=== PATIENT | male | born 1960 | race Caucasian/White ===

== ENCOUNTER 2018-06-13 05:22 | Emergency (ER) | payer BC, OTHER ==
[~2018-06-13] VITALS: Ht 170.2 cm; Wt 86.2 kg
--- NOTE | 2018-06-13 05:52 | ED Lower Extremity ---
General Chief Complaint: Lower Extremity Stated Complaint: BOTH LEGS SWOLLEN, RT IS MORE. Nursing Triage Note: Pt c/o swelling in lower extremites starting yesterday. Nursing Sepsis Screen: No Definite Risk (KATLYN NDIAYE DO) History of Present Illness Date Seen by Provider: Jun 13, 2018 Time Seen by Provider: 05:38 This is a 58-year-old man who complains of gradual development of symmetrical lower extremity edema over the last several days. He had the same thing about 10 years ago he states and he got better after taking a dose of Lasix. He has had no chest pain or difficulty breathing. No lightheadedness. He used to drink more frequently and has cut down to only drinking on weekends. He takes lorazepam for anxiety and "stomach pills" but is unsure of the names of these medications. (KATLYN NDIAYE DO) Allergies and Home Medications Patient Home Medication List Home Medication List Reviewed: Yes (KATLYN NDIAYE DO) Review of Systems Constitutional: no symptoms reported EENTM: no symptoms reported Respiratory: no symptoms reported Cardiovascular: No chest pain; edema; No palpitations Gastrointestinal: no symptoms reported Genitourinary: no symptoms reported Musculoskeletal: no symptoms reported Skin: no symptoms reported Psychiatric/Neurological: No Symptoms Reported (KATLYN NDIAYE DO) Past Jnevopk-Qlrvto-Gibuny Hx Patient Social History Recent Foreign Travel: No Contact w/Someone Who Travel: No Recent Infectious Disease Expo: No (KATLYN NDIAYE DO) Physical Exam Vital Signs Vital Signs - First Documented 06/13/18 05:30 Temp 97.8 Pulse 84 Resp 18 B/P (MAP) 155/94 (114) Pulse Ox 97 O2 Delivery Room Air (JACI KANG MD) Vital Signs Capillary Refill : Less Than 3 Seconds (KATLYN NDIAYE DO) Height, Weight, BMI Height: 5'7.00" Weight: 190lbs. oz. 86.462855yu; BMI Method:Stated General Appearance: no apparent distress HEENT: normal ENT inspection Neck: supple Cardiovascular: normal peripheral pulses, regular rate, rhythm; No JVD; other ( moderate symmetrical lower extremity pitting edema) Respiratory: lungs clear Gastrointestinal: non tender, soft, other (protuberant) Neurologic/Tendon: normal sensation, normal motor functions Neurologic/Psychiatric: alert, normal mood/affect Skin: warm/dry (KATLYN NDIAYE DO) Progress/Results/Core Measures Results/Orders Lab Results Laboratory Tests Test 06/13/18 05:50 Range/Units White Blood Count 3.6 L 4.3-11.0 10^3/uL Red Blood Count 3.93 L 4.35-5.85 10^6/uL Hemoglobin 10.4 L 13.3-17.7 G/DL Hematocrit 33 L 40-54 % Mean Corpuscular Volume 84 80-99 FL Mean Corpuscular Hemoglobin 26 25-34 PG Mean Corpuscular Hemoglobin Concent 27 L 32-36 G/DL Red Cell Distribution Width 16.1 H 10.0-14.5 % Platelet Count 88 L 130-400 10^3/uL Mean Platelet Volume 10.3 7.4-10.4 FL Sodium Level 135 135-145 MMOL/L Potassium Level 3.9 3.6-5.0 MMOL/L Chloride Level 100 98-107 MMOL/L Carbon Dioxide Level 25 21-32 MMOL/L Anion Gap 10 5-14 MMOL/L Blood Urea Nitrogen 5 L 7-18 MG/DL Creatinine 0.59 L 0.60-1.30 MG/DL Estimat Glomerular Filtration Rate > 60 BUN/Creatinine Ratio 8 Glucose Level 99 70-105 MG/DL Calcium Level 8.3 L 8.5-10.1 MG/DL Corrected Calcium 9.1 8.5-10.1 MG/DL Total Bilirubin 1.4 H 0.1-1.0 MG/DL Aspartate Amino Transf (AST/SGOT) 59 H 5-34 U/L Alanine Aminotransferase (ALT/SGPT) 20 0-55 U/L Alkaline Phosphatase 124 40-136 U/L Troponin T 11 <=15 NG/L Pro-B-Type Natriuretic Peptide 88.7 H <75.0 PG/ML Total Protein 7.1 6.4-8.2 GM/DL Albumin 3.0 L 3.2-4.5 GM/DL (JACI KANG MD) Vital Signs/I&O 06/13/18 05:30 Temp 97.8 Pulse 84 Resp 18 B/P (MAP) 155/94 (114) Pulse Ox 97 O2 Delivery Room Air (JACI KANG MD) Blood Pressure Mean: 114 Progress Progress Note : Progress Note Patient has recurrent symmetrical dependent edema. He is in no acute distress. We will check for CHF, renal failure, hepatic failure. Patient does have a primary care physician and will follow-up. Care will be signed out to oncoming provider at 6:00 AM with workup pending. (KATLYN NDIAYE DO) Progress Note : Time: 06:50 Progress Note Patient signed out to me at shift change pending labs/XR. Has increasing BLE edema over the past 2-3 days. No trauma, no history of blood clot. Used to be a "heavy drinker" 12 beers per day, now only 1-2. Has had increasing abdominal girth as well. 2+ BLE pitting edema. + Gin blossoms, + fluid wave, + caput [place]. No abdominal tenderness or pain. No fevers,chills. Discussed need for alcohol cessation, progression to liver failure. Discussed need for follow up with PCP. Instructed to call today to arrange follow up in the next week. (JACI KANG MD) Initial ECG Impression Time: 05:53 Comment NSR 80 bpm, normal axis, normal intervals, no hypertrophy, no STEMI. (JACI KANG MD) Departure Impression Primary Impression: Dependent edema Disposition: 01 HOME, SELF-CARE Condition: Stable Departure-Patient Inst. Decision time for Depature: 06:55 (JACI KANG MD) Referrals: ONEL VERMA MD (PCP) Primary Care Physician Patient Instructions: Acute Liver Failure (DC), Dependent Edema (DC) Add. Discharge Instructions: All discharge instructions reviewed with patient and/or family. Voiced understanding. Scripts Furosemide (Furosemide) 20 Mg Tablet 20 MG PO DAILY, #14 TAB Prov: JACI KANG MD 06/13/18 KATLYN NDIAYE DO Jun 13, 2018 05:52 JACI KANG MD Jun 13, 2018 06:52
--- NOTE | 2018-06-13 06:05 | Diagnostic Imaging Report ---
CHEST 1 VIEW AP/PA ONLY Indication: Occasional cough and leg swelling. Comparison: None available. Findings: No focal airspace disease in the visualized lungs. Please note that the posterior lower lobes are poorly evaluated by portable radiography. No pleural effusion or pneumothorax. Heart is borderline enlarged. Impression: No acute cardiopulmonary process by portable radiography. Dictated by: Dictated on workstation # [id number]
[2018-06-13 06:15] LABS: HEMOGLOBIN 10.4 G/DL (13.3-17.7); WHITE BLOOD COUNT 3.6 10^3/uL (4.3-11.0)
[2018-06-13 06:16] LABS: MEAN PLATELET VOLUME 10.3 FL (7.4-10.4); RED CELL DISTRIBUTION WIDTH 16.1 % (10.0-14.5)
[2018-06-13 06:39] LABS: BUN/CREATININE RATIO 8; CALCIUM 8.3 MG/DL (8.5-10.1); CARBON DIOXIDE 25 MMOL/L (21-32); CHLORIDE 100 MMOL/L (98-107); CREATININE SERUM 0.59 MG/DL (0.60-1.30); GFR ESTIMATED > 60; GLUCOSE 99 MG/DL (70-105); POTASSIUM 3.9 MMOL/L (3.6-5.0); SODIUM 135 MMOL/L (135-145)
[2018-06-13 06:40] LABS: ALANINE AMINOTRANSFERASE 20 U/L (0-55); ALKALINE PHOSPHATASE 124 U/L (40-136); BILIRUBIN,TOTAL 1.4 MG/DL (0.1-1.0); TOTAL PROTEIN 7.1 GM/DL (6.4-8.2)
[2018-06-13] MEDS ORDERED: FURO20TA4 PO (06:58)
[2018-06-13] MEDS ORDERED: FUROSEMIDE 40 MG/4 ML INJ (LASIX) IVP ONE (07:00)
[2018-06-13 07:16] VITALS: BP 160/92
== END 2018-06-13 07:16 | disposition home or self-care (01) ==
LOC: ER FS 05:26
DX: R60.0 Localized edema (principal)
CPT/HCPCS: 36415; 71045; 80053; 83880; 84484; 85027

== ENCOUNTER 2018-07-07 16:24 | Inpatient (IN) | payer BC ==
[~2018-07-07] VITALS: Ht 175.3 cm; Wt 108.9 kg
[~2018-07-07 16:24] MED LIST: FURO20TA4 PO
[2018-07-07] MEDS ORDERED: PANT40TA3 PO (16:41)
[2018-07-07] MEDS ORDERED: FURO-125 PO (16:41)
[2018-07-07] MEDS ORDERED: SUCR1TAB36 PO (16:41)
[2018-07-07] MEDS ORDERED: POTA10TA10 PO (16:41)
[2018-07-07] MEDS ORDERED: LORA2TAB PO (16:41)
[2018-07-07 16:56] LABS: BASOPHILS % (AUTO) 1 % (0-10); EOSINOPHILS # (AUTO) 0.2 10^3/uL (0.0-0.3); EOSINOPHILS % (AUTO) 3 % (0-10); HEMATOCRIT 24 % (40-54); HEMOGLOBIN 7.5 G/DL (13.3-17.7); LYMPHOCYTES # (AUTO) 0.9 X 10^3 (1.0-4.0); LYMPHOCYTES % (AUTO) 14 % (12-44); MEAN CORPUSCULAR HEMOGLOBIN 26 PG (25-34); MEAN CORPUSCULAR HGB CONC 32 G/DL (32-36); MEAN CORPUSCULAR VOLUME 83 FL (80-99); MONOCYTES # (AUTO) 1.1 X 10^3 (0.0-1.0); MONOCYTES % (AUTO) 17 % (0-12); NEUTROPHILS # (AUTO) 4.1 X 10^3 (1.8-7.8); NEUTROPHILS % (AUTO) 66 % (42-75); PLATELET COUNT 113 10^3/uL (130-400); RED CELL DISTRIBUTION WIDTH 16.9 % (10.0-14.5); WHITE BLOOD COUNT 6.3 10^3/uL (4.3-11.0)
[2018-07-07 17:03] LABS: BILIRUBIN,URINE NEGATIVE (NEGATIVE); CLARITY,URINE CLEAR; COLOR,URINE YELLOW; GLUCOSE, URINE (UA) NEGATIVE (NEGATIVE); KETONES,URINE 1+ (NEGATIVE); LEUKOCYTE ESTERASE ,URINE NEGATIVE (NEGATIVE); NITRITE,URINE NEGATIVE (NEGATIVE); PH,URINE 8 (5-9); PROTEIN,URINE NEGATIVE (NEGATIVE); UROBILINOGEN,URINE 4 MG/DL (NORMAL)
[2018-07-07 17:09] LABS: BACTERIA,URINE TRACE /HPF; SQUAMOUS EPITHELIAL CELL,UR RARE /HPF
[2018-07-07 17:23] LABS: ALANINE AMINOTRANSFERASE 16 U/L (0-55); ALBUMIN 2.4 GM/DL (3.2-4.5); ALKALINE PHOSPHATASE 82 U/L (40-136); AMYLASE 24 U/L (25-125); BILIRUBIN,TOTAL 1.9 MG/DL (0.1-1.0); BUN/CREATININE RATIO 20; CALCIUM 7.8 MG/DL (8.5-10.1); CARBON DIOXIDE 28 MMOL/L (21-32); CHLORIDE 96 MMOL/L (98-107); CREATININE SERUM 0.65 MG/DL (0.60-1.30); GFR ESTIMATED > 60; GLUCOSE 103 MG/DL (70-105); LIPASE 19 U/L (8-78); POTASSIUM 4.1 MMOL/L (3.6-5.0); SODIUM 128 MMOL/L (135-145); TOTAL PROTEIN 6.2 GM/DL (6.4-8.2)
--- NOTE | 2018-07-07 17:52 | NUR ---
RESTING IN BED. WARM BLANKET GIVEN ET NOTIFIED WE WERE WATING ON CT TO COME AND GET HIM.
--- NOTE | 2018-07-07 17:53 | ED Abdominal Pain ---
General Chief Complaint: Abdominal/GI Problems Stated Complaint: SWELLING IN FEET / LEGS Nursing Triage Note: PT AMBULATES TO TRIAGE STATES HAS SWELLING IN LOWER EXT, AND ABD, STATES IS ANEMIC PT HAS BEEN SEEN DR FREEMAN, HAS PAIN IN LOWER EXT 07/12. PT HAS LARGE AMT OF ACITIES HAS HX OF DRINKING A 12PK/DAY UNTIL APPROX A MONTH AGO Sepsis Screen: No Definite Risk Source of Information: Patient Exam Limitations: No Limitations History of Present Illness Date Seen by Provider: Jul 07, 2018 Time Seen by Provider: 16:51 Initial Comments 58-year-old male who presents to the emergency room with complaints of increasing swelling in his lower extremities and abdomen for the past month. He was seen and evaluated last month at [facility] for similar complaints. He has a long history of drinking a 12 pack per day for several years until a month ago and only drinks 1-2 beers a day currently. He was placed on Lasix at his visit at [place]. Timing/Duration: Other (1 month) Location: Generalized Abdomen Associated Symptoms: Swelling/Mass in Abdomen Allergies and Home Medications Allergies Uncoded Allergies: CODIENE (Allergy, Unknown, 06/13/18) Home Medications Furosemide 20 Mg Tablet, 20 MG PO DAILY Prescribed by: JACI KANG on 06/13/18 0658 Furosemide 20 Mg Tablet, 20 MG PO DAILY, (Reported) Lorazepam 2 Mg Tablet, 2 MG PO Q8H PRN for ANXIETY, (Reported) Pantoprazole Sodium 40 Mg Tablet.dr, 40 MG PO DAILY, (Reported) Potassium Chloride 10 Meq Tablet.er, 10 MEQ PO DAILY, (Reported) Sucralfate 1 Gm Tablet, 1 GM PO ACHS, (Reported) Patient Home Medication List Home Medication List Reviewed: Yes Review of Systems Review of Systems Constitutional: see HPI; No chills, No fever Gastrointestinal: See HPI, Abdomen Distended, Abdominal Pain (generalized abdomen); Denies Constipated, Denies Diarrhea, Denies Nausea Musculoskeletal: see HPI, other (2+ pitting edema lower extremities bilaterally ) All Other Systems Reviewed Negative Unless Noted: Yes Past Xmmeuxt-Ndociw-Ooanaq Hx Past Med/Social Hx: Reviewed Nursing Past Med/Soc Hx Patient Social History Alcohol Use: Regular Use Number of Drinks Today: 0 Alcohol Beverage of Choice: Beer Recreational Drug Use: No Smoking Status: Never a Smoker Type Used: Smokeless Tobacco 2nd Hand Smoke Exposure: No Recent Foreign Travel: No Contact w/Someone Who Travel: No Recent Infectious Disease Expo: No Recent Hopitalizations: No Immunizations Up To Date Tetanus Booster (TDap): Unknown Date of Influenza Vaccine: Jan 02, 2019 Seasonal Allergies Seasonal Allergies: No Past Medical History Surgeries: Yes (R knee arthroscopy, GI surgery for ulcers) Gallbladder Respiratory: No Cardiac: No Neurological: No Genitourinary: No Gastrointestinal: Yes Ulcer Musculoskeletal: No Endocrine: No HEENT: No Cancer: No Psychosocial: Yes Anxiety Integumentary: No Blood Disorders: No Family Medical History Reviewed Nursing Family Hx Physical Exam Vital Signs Vital Signs - First Documented 07/07/18 16:28 Temp 99.1 Pulse 102 Resp 18 B/P (MAP) 124/80 (95) Pulse Ox 100 Capillary Refill : Less Than 3 Seconds Height/Weight/BMI Height: 5'9.00" Weight: 240lbs. oz. 108.466996yo; BMI Method:Stated General Appearance: WD/WN, no apparent distress Respiratory: chest non-tender, lungs clear, normal breath sounds, no respiratory distress, no accessory muscle use Cardiovascular: normal peripheral pulses, regular rate, rhythm, no edema, no gallop, no JVD, no murmur Gastrointestinal: normal bowel sounds, distended (positive fluid wave), tenderness (generalized tenderness) Extremities: normal capillary refill Neurologic/Psychiatric: alert, normal mood/affect, oriented x 3 Skin: normal color, warm/dry Progress/Results/Core Measures Results/Orders Lab Results Laboratory Tests Test 07/07/18 16:51 07/07/18 16:59 Range/Units White Blood Count 6.3 4.3-11.0 10^3/uL Red Blood Count 2.85 L 4.35-5.85 10^6/uL Hemoglobin 7.5 L 13.3-17.7 G/DL Hematocrit 24 L 40-54 % Mean Corpuscular Volume 83 80-99 FL Mean Corpuscular Hemoglobin 26 25-34 PG Mean Corpuscular Hemoglobin Concent 32 32-36 G/DL Red Cell Distribution Width 16.9 H 10.0-14.5 % Platelet Count 113 L 130-400 10^3/uL Mean Platelet Volume 9.0 7.4-10.4 FL Neutrophils (%) (Auto) 66 42-75 % Lymphocytes (%) (Auto) 14 12-44 % Monocytes (%) (Auto) 17 H 0-12 % Eosinophils (%) (Auto) 3 0-10 % Basophils (%) (Auto) 1 0-10 % Neutrophils # (Auto) 4.1 1.8-7.8 X 10^3 Lymphocytes # (Auto) 0.9 L 1.0-4.0 X 10^3 Monocytes # (Auto) 1.1 H 0.0-1.0 X 10^3 Eosinophils # (Auto) 0.2 0.0-0.3 10^3/uL Basophils # (Auto) 0.0 0.0-0.1 10^3/uL Prothrombin Time 21.1 H 12.2-14.7 SEC INR Comment 1.7 H 0.8-1.4 Sodium Level 128 L 135-145 MMOL/L Potassium Level 4.1 3.6-5.0 MMOL/L Chloride Level 96 L 98-107 MMOL/L Carbon Dioxide Level 28 21-32 MMOL/L Anion Gap 4 L 5-14 MMOL/L Blood Urea Nitrogen 13 7-18 MG/DL Creatinine 0.65 0.60-1.30 MG/DL Estimat Glomerular Filtration Rate > 60 BUN/Creatinine Ratio 20 Glucose Level 103 70-105 MG/DL Calcium Level 7.8 L 8.5-10.1 MG/DL Corrected Calcium 9.1 8.5-10.1 MG/DL Total Bilirubin 1.9 H 0.1-1.0 MG/DL Aspartate Amino Transf (AST/SGOT) 52 H 5-34 U/L Alanine Aminotransferase (ALT/SGPT) 16 0-55 U/L Alkaline Phosphatase 82 40-136 U/L B-Type Natriuretic Peptide 35.9 <100.0 PG/ML Total Protein 6.2 L 6.4-8.2 GM/DL Albumin 2.4 L 3.2-4.5 GM/DL Amylase Level 24 L 25-125 U/L Lipase 19 8-78 U/L Urine Color YELLOW Urine Clarity CLEAR Urine pH 8 5-9 Urine Specific [place] 1.010 L 1.016-1.022 Urine Protein NEGATIVE NEGATIVE Urine Glucose (UA) NEGATIVE NEGATIVE Urine Ketones 1+ H NEGATIVE Urine Nitrite NEGATIVE NEGATIVE Urine Bilirubin NEGATIVE NEGATIVE Urine Urobilinogen 4 H NORMAL MG/DL Urine Leukocyte Esterase NEGATIVE NEGATIVE Urine RBC (Auto) NEGATIVE NEGATIVE Urine RBC NONE /HPF Urine WBC NONE /HPF Urine Squamous Epithelial Cells RARE /HPF Urine Crystals NONE /LPF Urine Bacteria TRACE /HPF Urine Casts NONE /LPF Urine Mucus NEGATIVE /LPF Urine Culture Indicated NO My Orders Orders - LEXX DENNY Comprehensive Metabolic Panel (07/07/18 16:50) Lipase (07/07/18 16:50) Amylase (07/07/18 16:50) Ua Culture If Indicated (07/07/18 16:50) Saline Lock/Iv-Start (07/07/18 16:50) Cbc With Automated Diff (07/07/18 16:50) Hepatitis Panel Acute (07/07/18 16:50) BNP (07/07/18 16:50) Ct Abdomen/Pelvis W (07/07/18 17:36) Iohexol Injection (Omnipaque 350 Mg/Ml 1 (07/07/18 18:00) Sodium Chloride Flush (Catheter Flush Sy (07/07/18 18:00) Contrast Received (Contrast Received) (07/07/18 18:00) Vital Signs/I&O 07/07/18 16:28 Temp 99.1 Pulse 102 Resp 18 B/P (MAP) 124/80 (95) Pulse Ox 100 Blood Pressure Mean: 95 Progress Progress Note : Time: 19:30 Progress Note I have seen and evaluated the patient. I have informed him of his laboratory and imaging studies. I discussed the case with Dr. PARIS and he recommends giving 40 of Lasix IV one time dose fluids at 75 mL an hour and he will see and evaluate the patient for possible In the morning. He will be admitted to Dr. Adair. I've discussed the case with her and she agrees to accept the patient to her services with a consult to Dr. PARIS Departure Communication (Admissions) Time/Spoke to Admitting Phy: 19:20 Dr. Adair Time/Spoke to Consulting Phy: 19:23 Dr. Paris Impression Primary Impression: Cirrhosis of liver Additional Impression: Anemia Disposition: ADMITTED INPATIENT Condition: Stable/Unchanged Admissions Decision to Admit Reason: Admit from ER (General) Decision to Admit/Date: Jul 07, 2018 Time/Decision to Admit Time: 20:24 Departure-Patient Inst. Referrals: NO,LOCAL PHYSICIAN (PCP/Family) Primary Care Physician LEXX DENNY Jul 07, 2018 17:53
[2018-07-07] MEDS ORDERED: IOHEXOL 350 MG/ML 100 ML (OMNIPAQUE 350) VIAL IV ONE (18:00)
[2018-07-07] MEDS ORDERED: HOLD METFORMIN - RECEIVED CONTRAST 20 ML VIAL IV SCH (18:00)
[2018-07-07] MEDS ORDERED: CATHETER FLUSH 10 ML SYR IV PRN (18:00)
--- NOTE | 2018-07-07 18:53 | Diagnostic Imaging Report ---
PROCEDURE: CT abdomen and pelvis with contrast. TECHNIQUE: Multiple contiguous axial images were obtained through the abdomen and pelvis after administration of intravenous contrast. Auto Exposure Controls were utilized during the CT exam to meet ALARA standards for radiation dose reduction. INDICATION: Abdominal pain and swelling. COMPARISON: None available. FINDINGS: Lower chest: The lung bases are clear. No pericardial or pleural effusion. Peritoneum: A moderate amount of free fluid is present throughout the abdomen and pelvis. No loculated fluid collections or free intraperitoneal air. Liver and biliary system: Heterogeneous nodular liver is indicative of cirrhosis. Additionally, there is diffuse hypoattenuation of the liver likely with superimposed hepatic steatosis. The main portal vein remains patent. Cholecystectomy. Spleen and Pancreas: Splenomegaly is present with the spleen measuring 14.7 cm. The pancreas enhances normally without mass lesion or peripancreatic inflammatory changes. Adrenals: Normal. tract: The kidneys enhance normally without suspicious mass or obstruction. Urinary bladder is distended without wall thickening. Prostate is not enlarged. GI tract: There has likely been a distal gastric resection, such as Billroth procedure. No bowel obstruction. No pericolonic inflammatory changes. Appendix is not visualized. Vasculature and Lymph nodes: Normal caliber aorta. No abdominal or pelvic lymphadenopathy. There are numerous varicosities secondary to cirrhosis. Musculoskeletal: No concerning osseous lesion. IMPRESSION: 1. Cirrhosis and hepatic steatosis. No focal liver lesion to indicate hepatocellular carcinoma. 2. Portal venous hypertension characterized by splenomegaly and numerous varicosities. 3. Moderate volume of abdominal ascites. Dictated by: Dictated on workstation # [id number]
--- NOTE | 2018-07-07 19:00 | NUR ---
ASSUMED CARE OF PT @ THIS TIME. REPORT RECIEVED FROM PERRI ZAPATA.
[2018-07-07 21:09] LABS: INR 1.7 (0.8-1.4); PROTHROMBIN TIME PATIENT 21.1 SEC (12.2-14.7)
--- NOTE | 2018-07-07 21:27 | CONSULTATION REPORT ---
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 HISTORY OF PRESENT ILLNESS: The patient is a 58-year-old male, who presented to the Emergency Department with lower extremity edema as well as abdominal distention for the past month. He was seen approximately one month ago for similar complaints at [facility] in [place]. He has not had proper medical management. However, based on his history as well as findings of ascites, it appears that he does have liver cirrhosis and symptomatic ascites as well as lower extremity edema. He has a longstanding history of alcohol and drinks approximately 12 beers daily for a significant amount of time; however, he states that when initial symptoms presented, he decreased his alcohol intake to approximately two beers daily. He states that again he developed lower extremity edema as well as abdominal distention, which has caused significant discomfort. Laboratory work also does show mild hyponatremia. He has a positive fluid shift wave consistent with ascites, which was also confirmed on CT scan. PAST MEDICAL HISTORY: Peptic ulcer disease and anxiety. PAST SURGICAL HISTORY: Laparoscopic cholecystectomy and right knee arthroscopy. ALLERGIES: CODEINE. MEDICATIONS: 1. Furosemide 20 mg daily. 2. Lorazepam 2 mg q.8 hours p.r.n. 3. Protonix 40 mg daily. 4. Potassium 10 mEq daily. 5. Carafate 1 gram q.i.d. SOCIAL HISTORY: Positive for alcohol of 12 drinks daily for many years. Negative smoke. FAMILY HISTORY: Noncontributory. REVIEW OF SYSTEMS: Well-nourished male with some discomfort secondary to the abdominal distention. He does not have any respiratory insufficiency. No cough or sputum production. Mild nausea. No vomiting. No hematemesis or coffee ground emesis. Does not report any diarrhea or constipation. No red blood per rectum. No dark tarry stools. No fever or chills. No recent inadvertent weight loss. All other review of systems are negative. PHYSICAL EXAMINATION: VITAL SIGNS: Temperature 99.1, blood pressure 124/80, pulse 102, respirations 18, pulse ox 100% on room air. CHEST: Good breath sounds bilaterally. HEART: Regular, no murmurs. EXTREMITIES: +1/3 bilateral lower extremity edema. Negative Homans sign. HEENT: No scleral icterus. NECK: No cervical lymphadenopathy. ABDOMEN: Distended with a positive fluid shift wave. No peritoneal signs. SKIN: Warm and dry. LABORATORY DATA: WBC 6.3, hemoglobin 7.5, hematocrit 24, platelets 113. Sodium is 128, potassium 4.1, BUN 13, creatinine 0.65. Total bilirubin 1.9, albumin 2.4. ASSESSMENT AND PLAN: A 58-year-old male with alcohol-induced liver cirrhosis, portal hypertension, ascites and lower extremity edema. He will be admitted to correct his hyponatremia with fluid restriction as well as normal saline as well as diuretics with Lasix. We will also proceed with diagnostic as well as therapeutic paracentesis. He is also anemic with a history of peptic ulcer disease and he may have active disease and on this admission, we will most likely proceed with an EGD as well. Job ID: [id number] DocumentID: [id number] Dictated Date: 07/07/2018 20:58:40 Manager Investment Date: 07/07/2018 21:27:11 Dictated By: ABRAM BOWERS MD
[2018-07-07 22:20] VITALS: BP 108/64
--- NOTE | 2018-07-07 22:20 | NUR ---
YO MCCANN admitted to room 422-1, with an admitting diagnosis of cirrhosis of liver and anemia, on 07/07/18 from ED via , accompanied by ED Staff Member.YO MCCANN introduced to surroundings, call light, bed controls, phone, TV, temperature control, lights, meal times, smoking policy, visitor policy, side rail policy, bathrooms and showers. Patient Rights given to patient in the handbook. YO MCCANN verbalizes understanding that [facility] is not responsible for the loss or damage to any personal effects or valuables that are kept in the patients posession during their hospitalization. Patient and/or family were informed about the Rapid Response Team and its purpose. Patient plan of care discussed, no questions or concerns at this time.
[2018-07-07] MEDS ORDERED: NS IV 1000 ML 1,000 ML ONE (22:31)
[2018-07-07] MEDS: NS IV 1000 ML 1,000 ML IV SCH (22:35)
--- NOTE | 2018-07-07 22:40 | NUR ---
Pt observed to be coughing while this RN was doing physical assessment for admission to floor. During coughing fit, pt began to get nauseated and appeared like he was about to vomit. This RN gave him the closest trash bin and pt observed by this RN to vomit an estimated 100mL or so of bright red blood with small clots. Attempted to call Dr. Paris with no answer.
[2018-07-07] MEDS ORDERED: FUROSEMIDE 40 MG/4 ML INJ (LASIX) IV ONE (22:45)
[2018-07-07] MEDS ORDERED: fentaNYL INJECTION 100 MCG/2 ML AMP IV PRN (22:45)
[2018-07-07] MEDS ORDERED: ONDANSETRON 4 MG/2 ML (SDV) Z0FRAN IV PRN (22:45)
--- NOTE | 2018-07-07 22:45 | NUR ---
Dr. Adair called and notified of bloody emesis. Order to obtain stat recheck of H&H and to notify of results and to continue to try to notify Dr. Paris. Addendum: 07/08/18 at 0343 by DELFINA HORVATH RN New orders to also start protonix drip 200mg/100mL NS at 4ml/hr and hold admission dose of lasix from bridge orders.
--- NOTE | 2018-07-07 22:54 | NUR ---
drawing kiln supervisor notified of protonix that needs mixed by pharmacy. Kickboxing Instructor to call in pharmacist to mix this medication.
--- NOTE | 2018-07-07 22:55 | NUR ---
Second attempt to call Dr. Paris. No answer at this time.
--- NOTE | 2018-07-07 23:07 | NUR ---
Dr. Paris reached by telephone and notified of bloody emesis. Ordered to start protonix 40mg IV BID and lopressor 5mg IV Q6H. Dr. Paris notified that Dr. Adair already ordered protonix drip and he is satisfied with that and cancels his order for BID protonix. Dr. Paris in agreeance with Dr. Adair to hold admission dose of lasix from bridge orders.
[2018-07-07 23:23] LABS: HEMOGLOBIN 6.6 G/DL (13.3-17.7)
--- NOTE | 2018-07-07 23:26 | NUR ---
Dr. Adair notified of HGB 6.[address] Adair orders to hold off on transfusing unless Dr. Paris wants to transfuse.
--- NOTE | 2018-07-07 23:28 | NUR ---
Dr. Paris notified of HBG 6.6 and HCT 21.1. orders to give 2 units Leuko reduced Red Blood Cells.
[2018-07-07] MEDS ORDERED: NS IV 500 ML 500 ML ONE (23:35)
[2018-07-07] MEDS ORDERED: NS IV 500 ML 500 ML IV ONE (23:45)
[2018-07-07] MEDS: SODIUM CHLORIDE IV SCH ×2 (23:47)
[2018-07-07] MEDS: PANTOPRAZOLE IV SCH ×2 (23:47)
[2018-07-08] VITALS (12 sets, daily range): BP systolic 100–124; BP diastolic 52–79
[2018-07-08] MEDS: meTOprolol 5 MG/5 ML (LOPRESSOR) VIAL IV SCH ×4 (00:32→18:13)
[2018-07-08 06:02] LABS: BASOPHILS # (AUTO) 0.1 10^3/uL (0.0-0.1); BASOPHILS % (AUTO) 1 % (0-10); EOSINOPHILS # (AUTO) 0.2 10^3/uL (0.0-0.3); EOSINOPHILS % (AUTO) 4 % (0-10); HEMATOCRIT 23 % (40-54); HEMOGLOBIN 7.5 G/DL (13.3-17.7); LYMPHOCYTES # (AUTO) 0.8 X 10^3 (1.0-4.0); LYMPHOCYTES % (AUTO) 14 % (12-44); MEAN CORPUSCULAR HEMOGLOBIN 27 PG (25-34); MEAN CORPUSCULAR HGB CONC 32 G/DL (32-36); MEAN CORPUSCULAR VOLUME 85 FL (80-99); MEAN PLATELET VOLUME 9.4 FL (7.4-10.4); MONOCYTES # (AUTO) 0.9 X 10^3 (0.0-1.0); MONOCYTES % (AUTO) 15 % (0-12); NEUTROPHILS # (AUTO) 3.7 X 10^3 (1.8-7.8); NEUTROPHILS % (AUTO) 66 % (42-75); PLATELET COUNT 104 10^3/uL (130-400); RED CELL DISTRIBUTION WIDTH 16.8 % (10.0-14.5); WHITE BLOOD COUNT 5.5 10^3/uL (4.3-11.0)
--- NOTE | 2018-07-08 06:07 | NUR ---
Dr. Paris notified of AM H&H and that patient hasn't vomited anymore but is having multiple tarry black stools with naresh blood. Hgb is 7.5 and Hct 23 after the second unit of blood given. No new orders at this time.
[2018-07-08 06:20] LABS: ALANINE AMINOTRANSFERASE 15 U/L (0-55); ALBUMIN 2.1 GM/DL (3.2-4.5); ALKALINE PHOSPHATASE 65 U/L (40-136); BUN/CREATININE RATIO 29; CALCIUM 7.6 MG/DL (8.5-10.1); CARBON DIOXIDE 27 MMOL/L (21-32); CHLORIDE 104 MMOL/L (98-107); CREATININE SERUM 0.63 MG/DL (0.60-1.30); GFR ESTIMATED > 60; GLUCOSE 106 MG/DL (70-105); SODIUM 135 MMOL/L (135-145); TOTAL PROTEIN 5.2 GM/DL (6.4-8.2)
--- NOTE | 2018-07-08 11:08 | Progress Note (SOAP) ---
Subjective Date Seen by a Provider: Jul 08, 2018 Time Seen by a Provider: 10:20 Subjective/Events-last exam Patient seen with Dr. Paris. Patient reports doing well. Denies any abdominal pain. Tolerating diet. RN reports that patient had hematemesis as well as melena stools last night. No fever/chills. Objective Exam Vital Signs Date Time Temp Pulse Resp B/P (MAP) Pulse Ox O2 Delivery O2 Flow Rate FiO2 07/08/18 08:00 98 Room Air 07/08/18 08:00 99.7 99 18 119/63 (81) 98 Room Air 07/08/18 07:00 90 07/08/18 05:00 99.6 98 16 122/79 98 Room Air 07/08/18 04:30 99.8 91 18 124/70 (88) 97 Room Air 07/08/18 02:49 99.6 93 16 119/74 100 Room Air 07/08/18 02:31 99.6 95 16 103/70 96 Room Air 07/08/18 02:18 99.6 96 16 110/73 97 Room Air 07/08/18 00:39 98.8 96 19 109/67 (81) 97 Room Air 07/08/18 00:19 99.4 94 18 100/66 96 Room Air 07/08/18 00:01 99.3 97 16 113/76 96 Room Air 07/07/18 22:40 98 Room Air 07/07/18 22:20 99.6 106 18 108/64 98 Room Air 07/07/18 22:15 99.1 107 18 116/83 (94) 99 Room Air 07/07/18 16:28 99.1 102 18 124/80 (95) 100 I & O 07/08/18 07:00 Intake Total 150 ml Balance 150 ml Capillary Refill : Less Than 3 Seconds General Appearance: No Apparent Distress, WD/WN Neck: Full Range of Motion, Normal Inspection, Non Tender, Supple Respiratory: Lungs Clear, Normal Breath Sounds, No Accessory Muscle Use, No Respiratory Distress Cardiovascular: Regular Rate, Rhythm, No Edema Gastrointestinal: normal bowel sounds, non tender, distended, other (Positive fluid wave shift.) Extremity: Normal Capillary Refill, Normal Range of Motion, Other (Approx 1+ edema) Neurologic/Psychiatric: Alert, Oriented x3 Skin: Normal Color, Warm/Dry Results Lab Laboratory Tests 07/07/18 16:51: White Blood Count 6.3, Red Blood Count 2.85L, Hemoglobin 7.5L, Hematocrit 24L, Mean Corpuscular Volume 83, Mean Corpuscular Hemoglobin 26, Mean Corpuscular Hemoglobin Concent 32, Red Cell Distribution Width 16.9H, Platelet Count 113L, Mean Platelet Volume 9.0, Neutrophils (%) (Auto) 66, Lymphocytes (%) (Auto) 14, Monocytes (%) (Auto) 17H, Eosinophils (%) (Auto) 3, Basophils (%) (Auto) 1, Neutrophils # (Auto) 4.1, Lymphocytes # (Auto) 0.9L, Monocytes # (Auto) 1.1H, Eosinophils # (Auto) 0.2, Basophils # (Auto) 0.0, Prothrombin Time 21.1H, INR Comment 1.7H, Sodium Level 128L, Potassium Level 4.1, Chloride Level 96L, Carbon Dioxide Level 28, Anion Gap 4L, Blood Urea Nitrogen 13, Creatinine 0.65, Estimat Glomerular Filtration Rate > 60, BUN/Creatinine Ratio 20, Glucose Level 103, Calcium Level 7.8L, Corrected Calcium 9.1, Total Bilirubin 1.9H, Aspartate Amino Transf (AST/SGOT) 52H, Alanine Aminotransferase (ALT/SGPT) 16, Alkaline Phosphatase 82, B-Type Natriuretic Peptide 35.9, Total Protein 6.2L, Albumin 2.4L, Amylase Level 24L, Lipase 19 07/07/18 16:59: Urine Color YELLOW, Urine Clarity CLEAR, Urine pH 8, Urine Specific [place] 1.010L, Urine Protein NEGATIVE, Urine Glucose (UA) NEGATIVE, Urine Ketones 1+H, Urine Nitrite NEGATIVE, Urine Bilirubin NEGATIVE, Urine Urobilinogen 4H, Urine Leukocyte Esterase NEGATIVE, Urine RBC (Auto) NEGATIVE, Urine RBC NONE, Urine WBC NONE, Urine Squamous Epithelial Cells RARE, Urine Crystals NONE, Urine Bacteria TRACE, Urine Casts NONE, Urine Mucus NEGATIVE, Urine Culture Indicated NO 07/07/18 23:15: Hemoglobin 6.6*L, Hematocrit 21L 07/08/18 05:55: White Blood Count 5.5, Red Blood Count 2.74L, Hemoglobin 7.5L, Hematocrit 23L, Mean Corpuscular Volume 85, Mean Corpuscular Hemoglobin 27, Mean Corpuscular Hemoglobin Concent 32, Red Cell Distribution Width 16.8H, Platelet Count 104L, Mean Platelet Volume 9.4, Neutrophils (%) (Auto) 66, Lymphocytes (%) (Auto) 14, Monocytes (%) (Auto) 15H, Eosinophils (%) (Auto) 4, Basophils (%) (Auto) 1, Neutrophils # (Auto) 3.7, Lymphocytes # (Auto) 0.8L, Monocytes # (Auto) 0.9, Eosinophils # (Auto) 0.2, Basophils # (Auto) 0.1, Sodium Level 135, Potassium Level 4.0, Chloride Level 104, Carbon Dioxide Level 27, Anion Gap 4L, Blood Urea Nitrogen 18, Creatinine 0.63, Estimat Glomerular Filtration Rate > 60, BUN/ Creatinine Ratio 29, Glucose Level 106H, Calcium Level 7.6L, Corrected Calcium 9.1, Total Bilirubin 2.0H, Aspartate Amino Transf (AST/SGOT) 40H, Alanine Aminotransferase (ALT/SGPT) 15, Alkaline Phosphatase 65, Total Protein 5.2L, Albumin 2.1L Assessment/Plan Assessment/Plan Assess & Plan/Chief Complaint A 58-year-old male with alcohol-induced liver cirrhosis, portal hypertension, ascites and lower extremity edema. VSS. Sodium WNL. awaiting Hepatitis panel. Continue with IV fluids, protonix drip. Low NA diet. Will proceed with paracentesis today. EGD soon. Clinical Quality Measures DVT/VTE Risk/Contraindication: Risk Factor Score Per Nursin RFS Level Per Nursing on Admit: 2=Moderate TAYLA JACKSON APRN Jul 08, 2018 11:08
[2018-07-08] MEDS: NS IV 1000 ML 1,000 ML IV SCH (11:27)
--- NOTE | 2018-07-08 11:41 | History & Physicial (CHS) ---
HPI History of Present Illness: 58 yo M that presented to ER with abdominal swelling. Patient has known cirrhosis of liver and states that in the last few days his abdomen has been more tense. Denies any pain associated with it. States that it has been several weeks since he has drank heavy but he drinks a couple of beer per day. Last night had episode of hematemesis and states that he has had dark stools for a while. Denies any h/o GI bleed in the past. Source: patient Exam Limitations: no limitations Date seen by provider: Jul 08, 2018 Time Seen by Provider: 10:35 Attending Physician Regan Adair MD PCP No,Local Physician Consult Date of Admission Jul 07, 2018 at 19:25 Home Medications Home Medications Reviewed patient Home Medication Reconciliation performed by pharmacy medication reconciliations certified technician specialist and/or nursing. Patients Allergies have been reviewed. Allergies Uncoded Allergies: CODIENE (Allergy, Unknown, 06/13/18) EDY-Sqvgah-Gyolvr Hx Patient Social History Alcohol Use: Regular Use Recreational Drug Use: No Smoking Status: Never a Smoker Type Used: Smokeless Tobacco 2nd Hand Smoke Exposure: No Recent Foreign Travel: No Contact w/other who traveled: No Recent Hopitalizations: No Recent Infectious Disease Expo: No Immunizations Up To Date Tetanus Booster (TDap): Unknown Date of Influenza Vaccine: Jan 02, 2019 Past Medical History Alcoholism ESLD with Ascites Review of Systems (CHC) Constitutional: No chills, No fever; weakness EENTM: no symptoms reported Respiratory: cough, dyspnea on exertion, short of breath Cardiovascular: no symptoms reported; No chest pain, No palpitations Gastrointestinal: abdominal pain, hematemesis, loss of appetite, melena Genitourinary: no symptoms reported; No dysuria, No frequency, No hematuria Musculoskeletal: no symptoms reported Skin: no symptoms reported Psychiatric/Neurological: No Symptoms Reported Reviewed Test Results Reviewed Test Results Lab Laboratory Tests Test 07/07/18 16:51 07/07/18 16:59 07/07/18 23:15 07/08/18 05:55 Range/Units White Blood Count 6.3 5.5 4.3-11.0 10^3/uL Red Blood Count 2.85 L 2.74 L 4.35-5.85 10^6/uL Hemoglobin 7.5 L 6.6 *L 7.5 L 13.3-17.7 G/DL Hematocrit 24 L 21 L 23 L 40-54 % Mean Corpuscular Volume 83 85 80-99 FL Mean Corpuscular Hemoglobin 26 27 25-34 PG Mean Corpuscular Hemoglobin Concent 32 32 32-36 G/DL Red Cell Distribution Width 16.9 H 16.8 H 10.0-14.5 % Platelet Count 113 L 104 L 130-400 10^3/uL Mean Platelet Volume 9.0 9.4 7.4-10.4 FL Neutrophils (%) (Auto) 66 66 42-75 % Lymphocytes (%) (Auto) 14 14 12-44 % Monocytes (%) (Auto) 17 H 15 H 0-12 % Eosinophils (%) (Auto) 3 4 0-10 % Basophils (%) (Auto) 1 1 0-10 % Neutrophils # (Auto) 4.1 3.7 1.8-7.8 X 10^3 Lymphocytes # (Auto) 0.9 L 0.8 L 1.0-4.0 X 10^3 Monocytes # (Auto) 1.1 H 0.9 0.0-1.0 X 10^3 Eosinophils # (Auto) 0.2 0.2 0.0-0.3 10^3/uL Basophils # (Auto) 0.0 0.1 0.0-0.1 10^3/uL Prothrombin Time 21.1 H 12.2-14.7 SEC INR Comment 1.7 H 0.8-1.4 Sodium Level 128 L 135 135-145 MMOL/L Potassium Level 4.1 4.0 3.6-5.0 MMOL/L Chloride Level 96 L 104 98-107 MMOL/L Carbon Dioxide Level 28 27 21-32 MMOL/L Anion Gap 4 L 4 L 5-14 MMOL/L Blood Urea Nitrogen 13 18 7-18 MG/DL Creatinine 0.65 0.63 0.60-1.30 MG/DL Estimat Glomerular Filtration Rate > 60 > 60 BUN/Creatinine Ratio 20 29 Glucose Level 103 106 H 70-105 MG/DL Calcium Level 7.8 L 7.6 L 8.5-10.1 MG/DL Corrected Calcium 9.1 9.1 8.5-10.1 MG/DL Total Bilirubin 1.9 H 2.0 H 0.1-1.0 MG/DL Aspartate Amino Transf (AST/SGOT) 52 H 40 H 5-34 U/L Alanine Aminotransferase (ALT/SGPT) 16 15 0-55 U/L Alkaline Phosphatase 82 65 40-136 U/L B-Type Natriuretic Peptide 35.9 <100.0 PG/ML Total Protein 6.2 L 5.2 L 6.4-8.2 GM/DL Albumin 2.4 L 2.1 L 3.2-4.5 GM/DL Amylase Level 24 L 25-125 U/L Lipase 19 8-78 U/L Urine Color YELLOW Urine Clarity CLEAR Urine pH 8 5-9 Urine Specific [place] 1.010 L 1.016-1.022 Urine Protein NEGATIVE NEGATIVE Urine Glucose (UA) NEGATIVE NEGATIVE Urine Ketones 1+ H NEGATIVE Urine Nitrite NEGATIVE NEGATIVE Urine Bilirubin NEGATIVE NEGATIVE Urine Urobilinogen 4 H NORMAL MG/DL Urine Leukocyte Esterase NEGATIVE NEGATIVE Urine RBC (Auto) NEGATIVE NEGATIVE Urine RBC NONE /HPF Urine WBC NONE /HPF Urine Squamous Epithelial Cells RARE /HPF Urine Crystals NONE /LPF Urine Bacteria TRACE /HPF Urine Casts NONE /LPF Urine Mucus NEGATIVE /LPF Urine Culture Indicated NO Physical Exam-(CHC) Physical Exam Vital Signs VS - Last 72 Hours, by Label 07/07/18 07/07/18 07/07/18 07/07/18 16:28 22:15 22:20 22:40 Temp 99.1 99.1 99.6 Pulse 102 107 106 Resp 18 18 18 B/P (MAP) 124/80 (95) 116/83 (94) 108/64 Pulse Ox 100 99 98 98 O2 Delivery Room Air Room Air Room Air 07/08/18 07/08/18 07/08/18 07/08/18 00:01 00:19 00:39 02:18 Temp 99.3 99.4 98.8 99.6 Pulse 97 94 96 96 Resp 16 18 19 16 B/P (MAP) 113/76 100/66 109/67 (81) 110/73 Pulse Ox 96 96 97 97 O2 Delivery Room Air Room Air Room Air Room Air 07/08/18 07/08/18 07/08/18 07/08/18 02:31 02:49 04:30 05:00 Temp 99.6 99.6 99.8 99.6 Pulse 95 93 91 98 Resp 16 16 18 16 B/P (MAP) 103/70 119/74 124/70 (88) 122/79 Pulse Ox 96 100 97 98 O2 Delivery Room Air Room Air Room Air Room Air 07/08/18 07/08/18 07/08/18 07:00 08:00 08:00 Temp 99.7 Pulse 90 99 Resp 18 B/P (MAP) 119/63 (81) Pulse Ox 98 98 O2 Delivery Room Air Room Air Capillary Refill : Less Than 3 Seconds General Appearance: WD/WN, no apparent distress HEENT: PERRL/EOMI Respiratory: chest non-tender, lungs clear, normal breath sounds, no respiratory distress, no accessory muscle use Cardiovascular: normal peripheral pulses, no murmur Gastrointestinal: distended, other (+ ascites with fluid shift) Back: no CVA tenderness, no vertebral tenderness Extremities: no calf tenderness, normal capillary refill Neurologic/Psychiatric: [employer] II-XII nml as tested, alert, oriented x 3 Skin: normal color, warm/dry Lymphatic: no adenopathy Assessment/Plan Assessment/Plan Admission Status: Inpatient Order (span 2 midnights) Reason for Inpatient Admission: requires close monitoring due to gi bleed (1) Alcoholic cirrhosis of liver with ascites Status: Chronic Assessment & Plan: - Patient not ready to quit drinking, [facility] plans to perform Paracentesis (2) GI bleed Status: Acute Assessment & Plan: - Started on Protonix gtts, Dr Paris notified and managing, pRBCs given Qualifiers: Qualified Codes: K92.0 - Hematemesis (3) Anemia Status: Chronic Assessment & Plan: - pRBCs given, will continue to monitor Qualifiers: Qualified Codes: D64.9 - Anemia, unspecified (4) Elevated INR Status: Chronic Assessment & Plan: - high risk of bleeding Clinical Quality Measures DVT/VTE Risk/Contraindication: Risk Factor Score Per Nursin RFS Level Per Nursing on Admit: 2=Moderate Copy Copies To 1: REGAN Stock MD Jul 08, 2018 11:41
--- NOTE | 2018-07-08 12:46 | OPERATIVE REPORT ---
DATE OF SERVICE: 07/08/2018 ATTENDING PHYSICIAN: Dr. Flor Adair. PREPROCEDURE DIAGNOSES: Symptomatic abdominal ascites and probable alcohol-induced liver cirrhosis. POSTOPERATIVE DIAGNOSES: Symptomatic abdominal ascites and probable alcohol-induced liver cirrhosis. PROCEDURE: Paracentesis. SURGEON: Abram Paris MD. CAFETERIA DIRECTOR: Darshan Moscoso APRN. ANESTHESIA: Local. ESTIMATED BLOOD LOSS: Minimal. FINDINGS: Straw yellow transudative fluid. DISPOSITION: The patient tolerated the procedure well. INDICATIONS: The patient is a 58-year-old male, who has had issues with lower extremity edema as well as abdominal distention. He was evaluated for this approximately one month ago and was placed on diuretics and he states that this did resolve. He presented to the emergency department with recurrent and worsening lower extremity edema as well as abdominal distention. A CT scan was performed, which did show a significant amount of ascites within the peritoneal cavity. There were also signs consistent with liver cirrhosis. He does have a significant alcohol history as well. He also does have a history of a peptic ulcer disease and underwent some form of open ulcer surgery many years ago. He did have one episode of hematemesis and was also found to be anemic on this admission requiring transfusion. This may represent a recurrent peptic ulcer disease versus esophageal varices. DESCRIPTION OF PROCEDURE: The abdomen was prepped and draped in a standard surgical fashion. A 1% lidocaine was used to anesthetize the skin, subcutaneous tissue, muscle layers as well as the parietal peritoneum. A vertical skin incision was made using a 15 blade. The trocar and catheter were then introduced withdrawing a straw yellow transudative fluid. The catheter was then introduced over the trocar without any resistance. The catheter was then connected to tubing and the gravity drainage bag. The catheter was then cleaned and covered with sterile gauze followed by Op-Site. The patient tolerated the procedure well. We will send the fluid off for cytology as well as laboratory analysis. We will also proceed with the EGD on this admission. For now, we will recommend medical management with fluid restriction to 1.5 liters daily as well as 1.5 gram sodium diet as well as diuresis. At some point, he may need to be referred to hepatology for potential liver transplantation; however, at this time, based on his clinical as well as laboratory values are categorized as a modified Child-Gorman classification A. Job ID: [id number] DocumentID: [id number] Dictated Date: 07/08/2018 12:28:38 Wrapper Hands Sprayer Date: 07/08/2018 12:46:17 Dictated By: ABRAM PARIS MD
[2018-07-08 13:12] LABS: BODY FLUID APPEARENCE SLT CLDY; BODY FLUID COLOR YELLOW; BODY FLUID RBC COUNT 95.5 /uL; BODY FLUID SOURCE PERITON; BODY FLUID WBC TOTAL COUNT 95.5 /uL
[2018-07-08 13:21] LABS: ALBUMIN,BODY FLUID 0.7 G/DL; AMYLASE,BODY FLUID 7 U/L; GLUCOSE,BODY FLUID 110 MG/DL; LDH,BODY FLUID 56 U/L; TOTAL PROTEIN,BODY FLUID 1.5 G/DL
[2018-07-08 13:23] LABS: LYMPHOCYTES,BODY FLUID 67 %
[2018-07-08 13:24] LABS: BF OTHER CELLS 7 %
[2018-07-09] VITALS: BP 98/56
[2018-07-09] MEDS: meTOprolol 5 MG/5 ML (LOPRESSOR) VIAL IV SCH ×3 (00:08→12:00)
[2018-07-09] MEDS: PANTOPRAZOLE IV SCH ×2 (00:08)
[2018-07-09] MEDS: NS IV 1000 ML 1,000 ML IV SCH (00:08)
[2018-07-09] MEDS: SODIUM CHLORIDE IV SCH ×2 (00:08)
[2018-07-09 04:00] VITALS: BP 97/56
[2018-07-09 05:27] LABS: BASOPHILS % (AUTO) 1 % (0-10); EOSINOPHILS # (AUTO) 0.2 10^3/uL (0.0-0.3); EOSINOPHILS % (AUTO) 6 % (0-10); HEMATOCRIT 23 % (40-54); HEMOGLOBIN 7.4 G/DL (13.3-17.7); LYMPHOCYTES # (AUTO) 0.8 X 10^3 (1.0-4.0); LYMPHOCYTES % (AUTO) 21 % (12-44); MEAN CORPUSCULAR HEMOGLOBIN 27 PG (25-34); MEAN CORPUSCULAR HGB CONC 32 G/DL (32-36); MEAN CORPUSCULAR VOLUME 86 FL (80-99); MEAN PLATELET VOLUME 9.9 FL (7.4-10.4); MONOCYTES # (AUTO) 0.5 X 10^3 (0.0-1.0); MONOCYTES % (AUTO) 13 % (0-12); NEUTROPHILS # (AUTO) 2.2 X 10^3 (1.8-7.8); NEUTROPHILS % (AUTO) 59 % (42-75); PLATELET COUNT 98 10^3/uL (130-400); RED CELL DISTRIBUTION WIDTH 17.7 % (10.0-14.5); WHITE BLOOD COUNT 3.7 10^3/uL (4.3-11.0)
[2018-07-09 05:39] LABS: INR 1.6 (0.8-1.4); PROTHROMBIN TIME PATIENT 19.4 SEC (12.2-14.7)
[2018-07-09 05:49] LABS: ALANINE AMINOTRANSFERASE 12 U/L (0-55); ALBUMIN 1.9 GM/DL (3.2-4.5); ALKALINE PHOSPHATASE 58 U/L (40-136); BILIRUBIN,TOTAL 1.2 MG/DL (0.1-1.0); BUN/CREATININE RATIO 21; CALCIUM 7.5 MG/DL (8.5-10.1); CARBON DIOXIDE 22 MMOL/L (21-32); CHLORIDE 111 MMOL/L (98-107); CREATININE SERUM 0.63 MG/DL (0.60-1.30); GFR ESTIMATED > 60; GLUCOSE 94 MG/DL (70-105); POTASSIUM 3.6 MMOL/L (3.6-5.0); SODIUM 138 MMOL/L (135-145); TOTAL PROTEIN 5.1 GM/DL (6.4-8.2)
[2018-07-09 08:00] VITALS: BP 104/56
[2018-07-09] MEDS ORDERED: LIDOCAINE JELLY 2% 6 ML SYRINGE ONE (09:13)
[2018-07-09] MEDS ORDERED: fentaNYL INJECTION 100 MCG/2 ML AMP ONE (09:13)
[2018-07-09] MEDS ORDERED: NS IV 500 ML 500 ML ONE (09:14)
[2018-07-09] MEDS ORDERED: HURRICAINE EXT TUBE (BENZOCAINE) ONE (09:14)
[2018-07-09] MEDS ORDERED: MIDAZOLAM 2 MG/2 ML (VERSED) VIAL ONE ×4 (09:14→10:05)
[2018-07-09] MEDS ORDERED: fentaNYL INJECTION 100 MCG/2 ML AMP IVP ONE (09:30)
[2018-07-09] MEDS ORDERED: NS IV 500 ML 500 ML IV ONE (09:30)
[2018-07-09] MEDS ORDERED: LIDOCAINE JELLY 2% 6 ML SYRINGE MM PRN (09:30)
[2018-07-09] MEDS ORDERED: HURRICAINE EXT TUBE (BENZOCAINE) XX PRN (09:30)
--- NOTE | 2018-07-09 09:48 | NUR ---
RN HERE FROM ENDOSCOPY TO TAKE PATIENT FOR EGD PROCEDURE.
[2018-07-09] MEDS: MIDAZOLAM 2 MG/2 ML (VERSED) VIAL IVP ONE (09:56)
--- NOTE | 2018-07-09 10:44 | Conscious Sedation/ASA ---
Conscious Sedation Pre-Proced Time 10:00 ASA Score 3 For ASA 3 and 4: Consider anesthesia and medical clearance. Also, for patients with a history of failed moderate sedation consider anesthesia. Airway Lungs Heart ASA score ASA 1: a normal healthy patient ASA 2: a patient with a mild systemic disease (mid diabetes, controlled hypertension, obesity ASA 3: a patient with a severe systemic disease that limits activity (angina , COPD, prior Myocardial infarction) ASA 4: a patient with an incapacitating disease that is a constant threat to life (CHF, renal failure) ASA 5: a moribund patient not expected to survive 24 hrs. (ruptured aneurysm) ASA 6: a declared brain- patient whose organs are being harvested. For emergent operations, add the letter E after the classification Mallampati Classification Grade 2 Sedation Plan Analgesia, Amnesia, Plan communicated to team members, Discussed options with patient/fam, Discussed risks with patient/fam The patient is an appropriate candidate to undergo the planned procedure, sedation, and anesthesia. The patient immediately re-assessed prior to indication. ABRAM BWOERS MD Jul 09, 2018 10:44
--- NOTE | 2018-07-09 10:45 | Progress Note-Pre Operative ---
Pre-Operative Progress Note H&P Reviewed The H&P was reviewed, patient examined and no changes noted. Date Seen by Provider: Jul 09, 2018 Time Seen by Provider: 10:00 Date H&P Reviewed: Jul 09, 2018 Time H&P Reviewed: :00 Pre-Operative Diagnosis: anemia, ascites, hematamesis ABRAM BOWERS MD Jul 09, 2018 10:45
--- NOTE | 2018-07-09 10:48 | Discharge Inst-Surgical ---
D/C Lap Instructions-KIDO New, Converted, or Re-Newed RX: RX on Chart Follow Up Appt in 2 weeks Activity as tolerated High Fiber Diet 25g or more per day Avoid Alcohol, Caffeine, Spicy [place] and Acid foods. [place] PUD diet. Drink 64 fluid oz or more of fluids per day. Symptoms to Report: Fever over 101 degree F, Nausea/Vomiting If any problems/questions: Contact your physician or go to Emergency Room ABRAM BOWERS MD Jul 09, 2018 10:48
--- NOTE | 2018-07-09 10:50 | Progress Note-Post Operative ---
Post-Operative Progess Note Surgeon (s)/Boat Canvas Installer (s) Surgeon ABRAM BOWERS MD Boat Canvas Installer: none Pre-Operative Diagnosis anemia, ascites, hematamesis Post-Operative Diagnosis grade 1 esophageal varices, reflux esophagitis(stage 2), no HH, large distal gastric/marginal ulcer(1cm), no active bleed. Procedure & Operative Findings Date of Procedure 07/09/18 Procedure Performed/Findings EGD with bx. Anesthesia Type cs Estimated Blood Loss Estimated blood loss (mL): minimal Specimens/Packing Specimens Removed gastric ulcer ABRAM BOWERS MD Jul 09, 2018 10:50
[2018-07-09] MEDS ORDERED: SUCRALFATE 1 GM (CARAFATE) TAB PO SCH (11:00)
[2018-07-09 12:00] VITALS: BP 114/74
--- NOTE | 2018-07-09 12:28 | Discharge Summary ---
Diagnosis/Chief Complaint Date of Admission Jul 07, 2018 at 19:25 Date of Discharge 07/09/18 Admission Diagnosis Admission Diagnosis See Problem list Discharge Diagnosis See below Problems/Diagnosis: (1) Alcoholic cirrhosis of liver with ascites Assessment & Plan: - Patient not ready to quit drinking, discussed ATS at [facility], Dr Paris plans to perform Paracentesis 07/09- Patient willing to discuss ATS, states that transportation is an issue Status: Chronic (2) GI bleed Assessment & Plan: - Started on Protonix gtts, Dr Paris notified and managing, pRBCs given 07/09: EGD today with ulcer that shows recent bleed, started on protonix and carafate Qualifiers: Qualified Codes: K92.0 - Hematemesis Status: Acute (3) Anemia Assessment & Plan: - pRBCs given, will continue to monitor Qualifiers: Qualified Codes: D64.9 - Anemia, unspecified Status: Chronic (4) Elevated INR Assessment & Plan: - high risk of bleeding Status: Chronic Chief Complaint/HPI Chief Complaint/HPI 58 yo M that presented to ER with abdominal swelling. Patient has known cirrhosis of liver and states that in the last few days his abdomen has been more tense. Denies any pain associated with it. States that it has been several weeks since he has drank heavy but he drinks a couple of beer per day. Last night had episode of hematemesis and states that he has had dark stools for a while. Denies any h/o GI bleed in the past. Discharge Summary-Simple/Stand Procedures EGD: + Varices and ulcer with signs of recent bleeding Consultations Dr Paris: General Surgery Discharge Physical Examination Allergies: Uncoded Allergies: CODIENE (Allergy, Unknown, 06/13/18) Vitals & I&Os Vital Sign - Last 12Hours Date Time Temp Pulse Resp B/P (MAP) Pulse Ox O2 Delivery O2 Flow Rate FiO2 07/09/18 10:55 72 16 100 Room Air 07/09/18 10:40 2 07/09/18 08:00 98.9 104/56 (72) Intake and Output 07/09/18 00:00 Intake Total 1420 ml Output Total 9400 ml Balance -7980 ml General Appearance: Alert, Oriented X3, Cooperative, No Acute Distress HEENT: Mucous Memb Moist/[place] Respiratory: Clear to Auscultation, Normal Air Movement Cardiovascular: Regular Rate, No Murmurs Abdominal: Soft, Other (Distented with + fluid shift) Extremities: No Edema, No Tenderness/Swelling Skin: No Rashes, No Breakdown Neuro: Strength at 5/5 X4 Ext, Cranial Nerves 3-12 NL Psych/Mental Status: Mental Status NL, Mood NL Hospital Course See final discharge diagnosis. Discussion & Recommendations 58 yo M with known alcoholic Cirrhois with ascities. Dr Paris performed therapeutic paracentesis with 9L drained. Discussed ATS with patient he is willing if transportation is available. Discharge Condition at discharge stable Instructions to patient/family Please see electronic discharge instructions given to patient. Discharge Medications Reviewed and agree with Discharge Medication list on patient's Discharge Instruction sheet Clinical Quality Measures DVT/VTE Risk/Contraindication: Risk Factor Score Per Nursin RFS Level Per Nursing on Admit: 2=Moderate REGAN OLVERA MD Jul 09, 2018 12:27
--- NOTE | 2018-07-09 12:31 | Discharge Instructions ---
Discharge [facility] Discharge Medications New, Converted or Re-Newed RX: RX on Chart Continued Medications: Furosemide (Furosemide) 20 Mg Tablet 20 MG PO DAILY, #14 TAB Furosemide (Lasix) 20 Mg Tablet 20 MG PO DAILY, TAB Lorazepam (Lorazepam) 2 Mg Tablet 2 MG PO Q8H PRN for ANXIETY, TAB Pantoprazole Sodium (Pantoprazole Sodium) 40 Mg Tablet.dr 40 MG PO DAILY, TAB Potassium Chloride (Potassium Chloride) 10 Meq Tablet.er 10 MEQ PO DAILY, TAB Sucralfate (Carafate) 1 Gm Tablet 1 GM PO ACHS, TAB Patient Instructions Goal/Follow Up Appt: You will be called tomorrow with follow up appt Will also discuss ATS and options for transportation Activity & Diet Discharge Diet: Low Sodium Diet, Other Diet (1.5 L fluid restriction) Activity as Tolerated: Yes REGAN OLVERA MD Jul 09, 2018 12:31
--- NOTE | 2018-07-09 13:00 | NUR ---
PATIENT TOLERATED LOW SODIUM DIET. NO COMPLAINTS OF NAUSEA/PAIN OR SHORTNESS OF BREATH. PATIENT EXPRESSING HIS DESIRES TO GO HOME TODAY.
--- NOTE | 2018-07-09 13:06 | OPERATIVE REPORT ---
DATE OF SERVICE: 07/09/2018 ATTENDING PHYSICIAN: Dr. Adair. PREOPERATIVE DIAGNOSES: Anemia, ascites, hematemesis. POSTOPERATIVE DIAGNOSES: Stage I esophageal varices, reflux esophagitis stage II. No hiatal hernia. Large distal gastric ulcer near the gastrojejunal anastomosis. No active bleed. PROCEDURE: EGD with biopsy. SURGEON: Abram Bowers MD ANESTHESIA: Conscious sedation. ESTIMATED BLOOD LOSS: Minimal. FINDINGS: Grade I esophageal varices with no active bleeding. Reflux esophagitis stage II. No hiatal hernia identified. The patient has had what appears to be a distal antrectomy and gastrojejunal anastomosis. There is a distal gastric ulcer near the anastomosis, which may also be defined as a marginal ulceration. This was heaped up and approximately 1 cm in size. There was no active bleeding identified. The Johnathon limb was patent with no ulcerations and no distal obstructions. DISPOSITION: The patient tolerated the procedure well. The patient is a 58-year-old male who presented to the Emergency Department with lower extremity edema as well as abdominal distention. He reports that he has had this before; however, was medically treated and his symptoms did somewhat resolved. He had recurrence of abdominal distention and lower extremity edema. Laboratory work also showed that he was anemic. While admitted, he did have one episode of hematemesis. He does have a significant history of alcohol consumption, which he currently does as well. CT scan also did show ascites as well as signs of liver cirrhosis as well as sinistral hypertension. The patient was brought to the endoscopy suite, laid in left lateral decubitus position. After adequate IV pain and sedating medications and conscious sedation anesthesia, the mouthpiece was applied. Endoscope was placed in the mouth, visualizing the pharynx and hypopharyngeal region. Vocal cords, epiglottis and vallecula identified and appeared to be normal. The endoscope was gently intubated at the esophageal opening and esophagus insufflated. The endoscope was then advanced to the first, second and third portion of the esophagus. At the level of the distal esophagus, a grade I esophageal varices identified. These were not bleeding. There was a reflux esophagitis stage II with no ulcerations or bleeding. The endoscope was then advanced into the stomach visualizing postsurgical changes most likely consistent with a distal antrectomy and gastrojejunostomy. A large ulcer was identified at the distal stomach close to the gastrojejunal anastomosis, which may also resemble a marginal ulceration. There was no stricture in this region. Biopsies were taken of the ulcer edge with forceps and electrocautery with visualization of good hemostasis. The endoscope was then retroflexed visualizing no hiatal hernia. The endoscope was then advanced into the jejunal limb with no ulcerations within the jejunum as well as no distal obstructions or any active bleeding. The endoscope was then slowly withdrawn while taking a second look and suctioning of residual air with no additional findings. The patient tolerated the procedure well. We will await the biopsy results; however, the ulcer appears to be large and may harbor a malignancy and may need further evaluation. For now, we will continue with conservative management with recommendation of alcohol cessation as well as a bland peptic ulcer disease diet and Protonix 40 mg daily as well as Carafate 1 gram q.i.d. for the next two weeks. Job ID: [id number] DocumentID: [id number] Dictated Date: 07/09/2018 10:33:15 Senior It Specialist Date: 07/09/2018 13:05:35 Dictated By: ABRAM BOWERS MD
--- NOTE | 2018-07-09 15:00 | NUR ---
PARACENTISIS DRAIN REMOVED BY THIS TAP PULLER. GAUZE DRESSING APPLIED PER DR. BOWERS'S ORDERS.
[2018-07-09 15:45] VITALS: BP 114/74
--- NOTE | 2018-07-09 15:45 | NUR ---
NEW PRESCRIPTIONS AND DISCHARGE INSTRUCTIONS GIVEN TO PATIENT WITH TIME ALLOWED FOR QUESTIONS. IV'S REMOVED WITH CATHETER TIPS INTACT. NO COMPLAINTS OF PAIN OR SHORTNESS OF BREATH. PATIENT BELONGINGS GATHERED. PATIENT LEFT ROOM VIA WHEELCHAIR ACCOMPANIED BY THIS BUFFERER. PATIENT LEFT FACILITY VIA PRIVATE VEHICLE.
[2018-07-11 14:42] LABS: HEPATITIS C ANTIBODY C Non-Reactive (Non-Reactive)
== END 2018-07-09 15:45 | disposition home or self-care (01) | DRG 432 ==
LOC: EDUNIT# 16:24 → ER 16:27 → 4TH 19:25
PROVIDERS: ADMIT Family Medicine; ATTEND Family Medicine
PROC: 0W9G30Z Drainage of Peritoneal Cavity with Drainage Device, Percutaneous Approach (ICD-10-PCS; principal; 2018-07-08)
PROC: 0DB78ZX Excision of Stomach, Pylorus, Via Natural or Artificial Opening Endoscopic, Diagnostic (ICD-10-PCS; 2018-07-09)
DX: K70.31 Alcoholic cirrhosis of liver with ascites (principal); K25.4 Chronic or unspecified gastric ulcer with hemorrhage; K92.0 Hematemesis; I85.00 Esophageal varices without bleeding; K76.6 Portal hypertension; E87.1 Hypo-osmolality and hyponatremia; K29.50 Unspecified chronic gastritis without bleeding; B96.81 Helicobacter pylori [H. pylori] as the cause of diseases classified elsewhere; D64.9 Anemia, unspecified; R79.1 Abnormal coagulation profile; K21.0 Gastro-esophageal reflux disease with esophagitis; F17.290 Nicotine dependence, other tobacco product, uncomplicated; F41.9 Anxiety disorder, unspecified; R60.0 Localized edema; Z87.19 Personal history of other diseases of the digestive system; Z88.5 Allergy status to narcotic agent
CPT/HCPCS: 36415; 74177; 80053; 80074; 81000; 82042; 82150; 82945; 83615; 83690; 83880; 84157; 85014; 85018; 85025; 85610; 86850; 86900; 86901; 86920; 87070; 87075; 87205; 88112; 89051

== ENCOUNTER 2018-07-21 16:55 | Emergency (ER) | payer BC ==
[~2018-07-21] VITALS: Ht 172.7 cm; Wt 90.7 kg
[~2018-07-21 16:55] MED LIST changes: +FURO-125 PO; +LORA2TAB PO; +PANT40TA3 PO; +POTA10TA10 PO; +SUCR1TAB36 PO
--- OUTSIDE RECORDS SUMMARY | 2018-07-21 17:00 | XMS REPORT | Continuity of Care Document ---
Author Organization Unknown Address Unknown Allergies There is no data. Medications There is no data. Problems There is no data. Procedures There is no data. Results Test Result Range PT/INR - 06/29/18 17:43 INR 1.3 NRG PT 13.2 sec 9.0-11.5 Encounters ACCT No. Visit Date/Time Discharge Status Pt. Type Provider Facility Loc./Unit Complaint [id number] 07/21/2018 15:20:00 ACT Outpatient [facility] [id number] 06/29/2018 16:40:00 Document Registration
--- NOTE | 2018-07-21 17:53 | NUR ---
ABDOMEN IS GREATLY DISTENDED. BILATERAL LEGS HAVE +4 EDEMA PRESENT.
--- NOTE | 2018-07-21 18:07 | ED GI ---
General Chief Complaint: General Problems/Pain Stated Complaint: CIRRHOSIS OF THE LIVER/FLUID BUILD UP Nursing Triage Note: PATIENT AMBULATORY TO ER WITH SISTER WITH COMPLAINT OF FLUID IN ABDOMEN AND LOWER EXTREMITIES. PATIENT STATES HE HAS A HISTORY OF CIRRHOSIS OF THE LIVER AND WAS HOSPITALIZED ON July FOR SAME SYMPTOMS AND HAD TO HAVE FLUID REMOVED. PATIENT IS MULLINS X4. PATIENT HAS HAD A 20 LB WEIGHT GAIN IN SEVERAL DAYS. Sepsis Screen: No Definite Risk Source of Information: Patient, Family (Daughter) Exam Limitations: No Limitations History of Present Illness Date Seen by Provider: Jul 21, 2018 Time Seen by Provider: 17:47 Initial Comments The patient presents to ER by private conveyance with chief complaint of swelling in his abdomen feeling distended. He is not having difficulty breathing but he was having quite a bit of coughing today. He's had no fevers nausea vomiting or diarrhea. Bowels or passing normally. He says he was here about 2 weeks ago and had to have some ascites drained off his abdomen secondary to cirrhosis. He drinks a lot of alcohol but quit 2 weeks ago after learning of his cirrhosis. He does not have a primary care doctor and was put inpatient under [facility] and was post follow-up but has not followed up yet. 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 No history of IV drug use, hepatitis, HIV. He has not been tested for these things yet. He does take Lasix although the last couple days he feels that it does not been as effective. He is having swelling in his feet bilaterally up his calves and feels very tight. He is not having any chest pain. His cough has been nonproductive. He does not require oxygen. He does use smokeless tobacco. Allergies and Home Medications Allergies Uncoded Allergies: DENNYIENVonnie (Allergy, Unknown, 06/13/18) Home Medications Furosemide 20 Mg Tablet, 20 MG PO DAILY Prescribed by: JACI KANG on 06/13/18 0658 Furosemide 20 Mg Tablet, 20 MG PO DAILY, (Reported) Furosemide 40 Mg Tablet, 40 MG PO DAILY Prescribed by: MARIAH CORONA on 07/21/182036 Lorazepam 2 Mg Tablet, 2 MG PO Q8H PRN for ANXIETY, (Reported) Magnesium Oxide 400 Mg Tablet, 400 MG PO BID Prescribed by: MARIAH CORONA on 07/21/182036 Pantoprazole Sodium 40 Mg Tablet.dr, 40 MG PO DAILY, (Reported) Potassium Chloride 10 Meq Tablet.er, 10 MEQ PO DAILY, (Reported) Spironolactone 100 Mg Tablet, 100 MG PO DAILY Prescribed by: MARIAH CORONA on 07/21/182036 Sucralfate 1 Gm Tablet, 1 GM PO ACHS, (Reported) Patient Home Medication List Home Medication List Reviewed: Yes Review of Systems Review of Systems Constitutional: No chills, No fever EENTM: No Blurred Vision, No Double Vision Respiratory: Cough; Denies Shortness of Air Cardiovascular: Denies Chest Pain; Edema; Denies Lightheadedness, Denies Palpitations Gastrointestinal: Abdomen Distended, Abdominal Pain (Mild, generalized); Denies Constipated, Denies Diarrhea, Denies Nausea Genitourinary: Denies Burning, Denies Discharge Musculoskeletal: No back pain, No joint pain Skin: No pruritus, No rash Psychiatric/Neurological: Denies Headache, Denies Numbness Past Qwjziwa-Jqrwfp-Tsuqpq Hx Patient Social History Alcohol Use: Past History Number of Drinks Today: AA Alcohol Beverage of Choice: Beer Recreational Drug Use: No Smoking Status: Never a Smoker Type Used: Smokeless Tobacco 2nd Hand Smoke Exposure: No Recent Foreign Travel: No Contact w/Someone Who Travel: No Recent Infectious Disease Expo: No Recent Hopitalizations: Yes (JULY 07 FOR FLUID REMOVAL FROM ABDOMEN) Immunizations Up To Date Tetanus Booster (TDap): Unknown PED Vaccines UTD: Yes Date of Influenza Vaccine: Jan 02, 2019 Seasonal Allergies Seasonal Allergies: No Past Medical History Surgeries: Yes (R knee arthroscopy, GI surgery for ulcers) Gallbladder Respiratory: No Cardiac: No Neurological: No Genitourinary: No Gastrointestinal: Yes Gastrointestinal Bleed, Ulcer, Cirrhosis Musculoskeletal: No Endocrine: No HEENT: No Cancer: No Psychosocial: Yes Anxiety Integumentary: No Blood Disorders: No Physical Exam Vital Signs Vital Signs - First Documented 07/21/18 17:32 Temp 98.2 Pulse 97 Resp 18 B/P (MAP) 125/77 (93) Pulse Ox 100 O2 Delivery Room Air Capillary Refill : Less Than 3 Seconds Height/Weight/BMI Height: 5'8.00" Weight: 200lbs. 0.0oz. 90.538399mt; 35.4 BMI Method:Stated General Appearance: WD/WN, no apparent distress HEENT: PERRL/EOMI, normal ENT inspection, pharynx normal Neck: full range of motion, normal inspection Respiratory: no respiratory distress, no accessory muscle use, rales ( Bilateral bases, few) Cardiovascular: normal peripheral pulses, regular rate, rhythm, other (2+ pitting edema bilateral feet ankles and calves without erythema or tenderness.) Peripheral Pulses: 2+ Radial Pulses (R), 2+ Radial Pulses (L) Gastrointestinal: normal bowel sounds, non tender, soft, distended (Markedly) Extremities: normal range of motion, normal capillary refill, pedal edema ( Marketed, 2+ pitting edema bilateral lower feet ankle and calves.) Neurologic/Psychiatric: alert, normal mood/affect, oriented x 3 Skin: normal color, warm/dry Progress/Results/Core Measures Results/Orders Lab Results Laboratory Tests Test 07/21/18 18:31 Range/Units White Blood Count 4.0 L 4.3-11.0 10^3/uL Red Blood Count 3.06 L 4.35-5.85 10^6/uL Hemoglobin 8.1 L 13.3-17.7 G/DL Hematocrit 26 L 40-54 % Mean Corpuscular Volume 85 80-99 FL Mean Corpuscular Hemoglobin 26 25-34 PG Mean Corpuscular Hemoglobin Concent 31 L 32-36 G/DL Red Cell Distribution Width 18.3 H 10.0-14.5 % Platelet Count 156 130-400 10^3/uL Mean Platelet Volume 10.0 7.4-10.4 FL Neutrophils (%) (Auto) 59 42-75 % Lymphocytes (%) (Auto) 17 12-44 % Monocytes (%) (Auto) 16 H 0-12 % Eosinophils (%) (Auto) 7 0-10 % Basophils (%) (Auto) 2 0-10 % Neutrophils # (Auto) 2.3 1.8-7.8 X 10^3 Lymphocytes # (Auto) 0.7 L 1.0-4.0 X 10^3 Monocytes # (Auto) 0.6 0.0-1.0 X 10^3 Eosinophils # (Auto) 0.3 0.0-0.3 10^3/uL Basophils # (Auto) 0.1 0.0-0.1 10^3/uL Prothrombin Time 19.5 H 12.2-14.7 SEC INR Comment 1.6 H 0.8-1.4 Activated Partial Thromboplast Time 38 H 24-35 SEC Sodium Level 136 135-145 MMOL/L Potassium Level 3.5 L 3.6-5.0 MMOL/L Chloride Level 104 98-107 MMOL/L Carbon Dioxide Level 24 21-32 MMOL/L Anion Gap 8 5-14 MMOL/L Blood Urea Nitrogen 11 7-18 MG/DL Creatinine 0.73 0.60-1.30 MG/DL Estimat Glomerular Filtration Rate > 60 BUN/Creatinine Ratio 15 Glucose Level 132 H 70-105 MG/DL Calcium Level 7.9 L 8.5-10.1 MG/DL Corrected Calcium 9.3 8.5-10.1 MG/DL Magnesium Level 1.5 L 1.8-2.4 MG/DL Total Bilirubin 0.8 0.1-1.0 MG/DL Aspartate Amino Transf (AST/SGOT) 40 H 5-34 U/L Alanine Aminotransferase (ALT/SGPT) 18 0-55 U/L Alkaline Phosphatase 91 40-136 U/L C-Reactive Protein High Sensitivity 0.53 H 0.00-0.50 MG/DL B-Type Natriuretic Peptide 103.0 H <100.0 PG/ML Total Protein 6.0 L 6.4-8.2 GM/DL Albumin 2.3 L 3.2-4.5 GM/DL Thyroid Stimulating Hormone (TSH) 1.95 0.35-4.94 UIU/ML My Orders Orders - MARIAH CORONA BNP (07/21/18 18:00) Cbc With Automated Diff (07/21/18 18:00) Comprehensive Metabolic Panel (07/21/18 18:00) Hs C Reactive Protein (07/21/18 18:00) Magnesium (07/21/18 18:00) Protime With Inr (07/21/18 18:00) Partial Thromboplastin Time (07/21/18 18:00) Thyroid Stimulating Hormone (07/21/18 19:20) Chest 1 View, Ap/Pa Only (07/21/18 19:27) Albumin 25% 25 Gm/100 Ml (Albumin 25% 25 (07/21/18 19:45) Medications Given in ED Current Medications Medications Dose Ordered Sig/Mihaela Route Start Time Stop Time Status Last Admin Dose Admin Albumin Human 100 ml @ 50 mls/hr ONCE ONCE IV 07/21/18 19:45 07/21/18 21:44 07/21/18 19:44 50 MLS/HR Vital Signs/I&O 07/21/18 17:32 Temp 98.2 Pulse 97 Resp 18 B/P (MAP) 125/77 (93) Pulse Ox 100 O2 Delivery Room Air Blood Pressure Mean: 93 Progress Progress Note #1: Time: 18:05 Progress Note Patient does have some crackles so we're going to obtain a chest x-ray. We'll be get some basic labs look at the electrolytes. He would probably benefit from being on a higher dose of Lasix as well as spironolactone. We can initiate that if his doctor light levels are acceptable. He needs appropriate outpatient follow-up and referral to specialty care. We've discussed this at length with him. Finally his abdominal ascites is quite tense and this comfortable although is not causing him difficulty breathing or significant vital sign changes but I think a reasonable approach would be a paracentesis of the abdomen. It is not clear how many liters were drained off in his previous paracentesis that he did have an EGD done and has a history of open surgery for gastric ulcer. Like to see what his platelets are has a history of anemia with his last hemoglobin being 7.4. July 09, [address] Paris: Stage I esophageal varices, reflux esophagitis stage II. Large distal gastric ulcer near the gastroduodenal anastomosis. No active bleeding. Progress Note #2: Time: 20:26 Progress Note General surgery drained 5 L off his abdomen which gave tremendous relief. Surgery then ordered albumin 25 mg IV bolus. Patient tolerating this and we're going to allow him to go home. Plan to give him some magnesium outpatient as well as starts in spironolactone and have him follow-up in the next week with primary care at [facility]. Consults : Consulting Physician: GORDO BARTLETT DO Consults Notes Discussed case and history with Dr. Bartlett and he was asked that we get gloves, ultrasound and a paracentesis At the bedside. Departure Impression Primary Impression: Alcoholic cirrhosis of liver with ascites Additional Impressions: S/P abdominal paracentesis Hypomagnesemia Disposition: 01 HOME, SELF-CARE Condition: Improved Departure-Patient Inst. Decision time for Depature: 20:37 Referrals: REGAN OLVERA MD NO,LOCAL PHYSICIAN (PCP) Primary Care Physician Patient Instructions: Abdominal Paracentesis (DC), Fluid in the Belly (Ascites) , Low Salt Diet Add. 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 Tuesday morning call primary care, [facility] and request an appointment. 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 All discharge instructions reviewed with patient and/or family. Voiced understanding. Scripts Magnesium Oxide (Magnesium) 400 Mg Tablet 400 MG PO BID for 5 Days, #10 TAB 0 Refills Prov: MARIAH CORONA 07/21/18 Furosemide (Lasix) 40 Mg Tablet 40 MG PO DAILY for 30 Days, #30 TAB 0 Refills Prov: MARIAH CORONA 07/21/18 Spironolactone (Aldactone) 100 Mg Tablet 100 MG PO DAILY for 30 Days, #30 TAB 0 Refills Prov: MARIAH CORONA 07/21/18 Copy Copies To 1: JENELLE MEEKS TITUS J Jul 21, 2018 18:07
[2018-07-21 18:38] LABS: BASOPHILS # (AUTO) 0.1 10^3/uL (0.0-0.1); BASOPHILS % (AUTO) 2 % (0-10); EOSINOPHILS # (AUTO) 0.3 10^3/uL (0.0-0.3); EOSINOPHILS % (AUTO) 7 % (0-10); HEMATOCRIT 26 % (40-54); HEMOGLOBIN 8.1 G/DL (13.3-17.7); LYMPHOCYTES # (AUTO) 0.7 X 10^3 (1.0-4.0); LYMPHOCYTES % (AUTO) 17 % (12-44); MEAN CORPUSCULAR HGB CONC 31 G/DL (32-36); MEAN CORPUSCULAR VOLUME 85 FL (80-99); MONOCYTES # (AUTO) 0.6 X 10^3 (0.0-1.0); MONOCYTES % (AUTO) 16 % (0-12); NEUTROPHILS # (AUTO) 2.3 X 10^3 (1.8-7.8); NEUTROPHILS % (AUTO) 59 % (42-75); PLATELET COUNT 156 10^3/uL (130-400); RED CELL DISTRIBUTION WIDTH 18.3 % (10.0-14.5)
[2018-07-21 18:39] LABS: MEAN CORPUSCULAR HEMOGLOBIN 26 PG (25-34)
[2018-07-21 18:49] LABS: INR 1.6 (0.8-1.4); PROTHROMBIN TIME PATIENT 19.5 SEC (12.2-14.7)
[2018-07-21 18:57] LABS: ALANINE AMINOTRANSFERASE 18 U/L (0-55); ALBUMIN 2.3 GM/DL (3.2-4.5); ALKALINE PHOSPHATASE 91 U/L (40-136); BILIRUBIN,TOTAL 0.8 MG/DL (0.1-1.0); BUN/CREATININE RATIO 15; CALCIUM 7.9 MG/DL (8.5-10.1); CARBON DIOXIDE 24 MMOL/L (21-32); CHLORIDE 104 MMOL/L (98-107); CREATININE SERUM 0.73 MG/DL (0.60-1.30); GFR ESTIMATED > 60; GLUCOSE 132 MG/DL (70-105); MAGNESIUM 1.5 MG/DL (1.8-2.4); POTASSIUM 3.5 MMOL/L (3.6-5.0); SODIUM 136 MMOL/L (135-145)
--- NOTE | 2018-07-21 19:42 | Diagnostic Imaging Report ---
INDICATION: Chest and abdominal pain The borderline cardiomegaly noted on the prior exam of 06/13/2018 is again evident and no different. The lungs remain clear. There is still no sign of failure, pneumonia or a pleural effusion to indicate an acute abnormality. The mediastinum is not widened. The osseous structures are intact. Surgical clips are again seen near the gastroesophageal junction. IMPRESSION: There is borderline cardiomegaly but there is no evidence for active disease. When compared to the prior study, there has been no significant change. Dictated by: Dictated on workstation # [id number]
[2018-07-21] MEDS ORDERED: ALBUMIN 25% 25 GM/100 ML 100 ML IV ONE (19:45)
[2018-07-21] MEDS ORDERED: FURO-124 PO (20:37)
[2018-07-21] MEDS ORDERED: SPIR100T PO (20:37)
[2018-07-21] MEDS ORDERED: MAGN400T39 PO (20:37)
[2018-07-21 21:07] VITALS: BP 119/89
--- NOTE | 2018-07-22 16:41 | OPERATIVE REPORT ---
DATE OF SERVICE: 07/21/2018 PREOPERATIVE DIAGNOSIS: Symptomatic ascites. POSTOPERATIVE DIAGNOSIS: Symptomatic ascites. PROCEDURE: Paracentesis, ultrasound-guided. SURGEON: Gordo Barbosa DO ANESTHESIA: Local anesthetic of 1% lidocaine. ESTIMATED BLOOD LOSS: Scant. COMPLICATIONS: None. INDICATIONS: The patient is a 58-year-old male with symptomatic ascites, having a lot of diffuse abdominal pain due to the distention. He has had previous paracentesis. He understands risks and benefits and wishes to proceed. DESCRIPTION OF THE PROCEDURE: The patient was looked at using the ultrasound. The area of the best entrance was located and marked. The area was then prepped and draped in sterile fashion. A #11 blade scalpel was used to make a skin incision and the [id number] needle and catheter were inserted into the abdomen until straw colored fluid was withdrawn and the catheter was then advanced. The needle was removed and 5 liters of straw-colored fluid was removed from the abdomen. Once this was done draining, the catheter was removed and sterile bandage was applied. The patient tolerated the procedure well without any complications. 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
--- NOTE | 2018-07-23 21:34 | Consultation ---
History of Present Illness History of Present Illness Patient Consulted On(rika/time) 07/23/18 21:29 Date Seen by Provider: Jul 21, 2018 Time Seen by Provider: 18:30 History of Present Illness consult requested by Dr. Corona for symptomatic ascites. patient is a 58 year old male who was recently diagnosed with cirrhosis. Patient over last few days has been having increasing abdominal distention. He states his abdomen is very tight and he has fluid swelling in both lower legs. Moderate discomfort. Not quite making it hard to breath yet but concerned it may. He has gained 20 pounds in last few days. He states earlier in the month he had to have paracentesis performed. Nothing he does has made it better and nothing he knows of has made it worse. Patient denies any nausea vomiting fever sweats chills shortness of breath or chest pain at this time. Allergies and Home Medications Allergies Uncoded Allergies: PAVAN (Allergy, Unknown, 06/13/18) Home Medications Furosemide 20 Mg Tablet, 20 MG PO DAILY Prescribed by: JACI KANG on 06/13/18 0658 Furosemide 20 Mg Tablet, 20 MG PO DAILY, (Reported) Furosemide 40 Mg Tablet, 40 MG PO DAILY Prescribed by: MARIAH CORONA on 07/21/182036 Lorazepam 2 Mg Tablet, 2 MG PO Q8H PRN for ANXIETY, (Reported) Magnesium Oxide 400 Mg Tablet, 400 MG PO BID Prescribed by: MARIAH CORONA on 07/21/182036 Pantoprazole Sodium 40 Mg Tablet.dr, 40 MG PO DAILY, (Reported) Potassium Chloride 10 Meq Tablet.er, 10 MEQ PO DAILY, (Reported) Spironolactone 100 Mg Tablet, 100 MG PO DAILY Prescribed by: MARIAH CORONA on 07/21/182036 Sucralfate 1 Gm Tablet, 1 GM PO ACHS, (Reported) Patient Home Medication List Home Medication List Reviewed: Yes Past Paekgpc-Wirbeg-Sqthxw Hx Patient Social History Alcohol Use: Past History Number of Drinks Today: AA Recreational Drug Use: No Smoking Status: Never a Smoker Type Used: Smokeless Tobacco 2nd Hand Smoke Exposure: No Recent Foreign Travel: No Contact w/Someone Who Travel: No Recent Infectious Disease Expo: No Recent Hopitalizations: Yes (JULY 07 FOR FLUID REMOVAL FROM ABDOMEN) Immunizations Up To Date Tetanus Booster (TDap): Unknown PED Vaccines UTD: Yes Date of Influenza Vaccine: Jan 02, 2019 Seasonal Allergies Seasonal Allergies: No Surgeries History of Surgeries: Yes (R knee arthroscopy, GI surgery for ulcers) Surgeries: Gallbladder Respiratory History of Respiratory Disorde: No Cardiovascular History of Cardiac Disorders: No Neurological History of Neurological Disord: No Genitourinary History of Genitourinary Disor: No Gastrointestinal History of Gastrointestinal Di: Yes Gastrointestinal Disorders: Gastrointestinal Bleed, Ulcer, Cirrhosis Musculoskeletal History of Musculoskeletal Dis: No Endocrine History of Endocrine Disorders: No HEENT History of HEENT Disorders: No Cancer History of Cancer: No Psychosocial History of Psychiatric Problem: Yes Behavioral Health Disorders: Anxiety Integumentary History of Skin or Integumenta: No Blood Transfusions History of Blood Disorders: No Family Medical History Significant Family History: No Pertinent Family Hx Review of Systems-General Constitutional: no symptoms reported EENTM: no symptoms reported Respiratory: no symptoms reported Cardiovascular: no symptoms reported Gastrointestinal: see HPI Genitourinary: no symptoms reported Musculoskeletal: no symptoms reported Skin: no symptoms reported Psychiatric/Neurological: No Symptoms Reported Physical Exam-General Problems Physical Exam Vital Signs Vital Signs - First Documented 07/21/18 17:32 Temp 98.2 Pulse 97 Resp 18 B/P (MAP) 125/77 (93) Pulse Ox 100 O2 Delivery Room Air Capillary Refill : Less Than 3 Seconds General Appearance: no apparent distress HEENT: PERRL/EOMI, normal ENT inspection Neck: full range of motion, supple, normal inspection Respiratory: chest non-tender, no respiratory distress, no accessory muscle use Cardiovascular: regular rate, rhythm Gastrointestinal: distended (fluid wave), tenderness (minimal diffusely) Rectal: deferred Back: no CVA tenderness Extremities: pedal edema, swelling Neurologic/Psychiatric: no motor/sensory deficits, alert, normal mood/affect, oriented x 3 Skin: normal color, warm/dry Lymphatic: no adenopathy Assessment/Plan Assessment/Plan Assessment/Plan diffuse abdominal pain symptomatic ascites cirrhosis of liver we discussed risks and benefit of having u/s guided paracentesis performed he understands risks and benefits and wishes to proceed patient to follow up outpatient. GORDO BARTLETT DO Jul 23, 2018 21:34
== END 2018-07-21 21:09 | disposition home or self-care (01) ==
LOC: EDUNIT# 16:55 → ER 16:56
DX: K70.31 Alcoholic cirrhosis of liver with ascites (principal); E83.42 Hypomagnesemia; K21.9 Gastro-esophageal reflux disease without esophagitis; F41.9 Anxiety disorder, unspecified; Z88.5 Allergy status to narcotic agent; Z98.890 Other specified postprocedural states; Z87.19 Personal history of other diseases of the digestive system
CPT/HCPCS: 36415; 71045; 80053; 83735; 83880; 84443; 85025; 85610; 85730; 86141

== ENCOUNTER → 2018-08-30 | Outpatient (CLI) | payer BC ==
[~2018-08-30] MED LIST changes: +FURO-124 PO; +MAGN400T39 PO; +SPIR100T PO
[2018-08-30 17:12] LABS: BASOPHILS % (AUTO) 1 % (0-10); EOSINOPHILS # (AUTO) 0.2 10^3/uL (0.0-0.3); EOSINOPHILS % (AUTO) 4 % (0-10); HEMATOCRIT 32 % (40-54); HEMOGLOBIN 9.5 G/DL (13.3-17.7); LYMPHOCYTES # (AUTO) 0.9 X 10^3 (1.0-4.0); LYMPHOCYTES % (AUTO) 19 % (12-44); MEAN CORPUSCULAR HEMOGLOBIN 23 PG (25-34); MEAN CORPUSCULAR HGB CONC 30 G/DL (32-36); MEAN CORPUSCULAR VOLUME 77 FL (80-99); MEAN PLATELET VOLUME 10.2 FL (7.4-10.4); MONOCYTES # (AUTO) 0.8 X 10^3 (0.0-1.0); MONOCYTES % (AUTO) 16 % (0-12); NEUTROPHILS # (AUTO) 2.8 X 10^3 (1.8-7.8); NEUTROPHILS % (AUTO) 60 % (42-75); PLATELET COUNT 127 10^3/uL (130-400); RED CELL DISTRIBUTION WIDTH 20.4 % (10.0-14.5); WHITE BLOOD COUNT 4.7 10^3/uL (4.3-11.0)
[2018-08-30 17:13] LABS: BASOPHILS # (AUTO) 0.1 10^3/uL (0.0-0.1)
[2018-08-30 17:52] LABS: SODIUM 138 MMOL/L (135-145)
[2018-08-30 17:53] LABS: ALANINE AMINOTRANSFERASE 19 U/L (0-55); ALBUMIN 3.1 GM/DL (3.2-4.5); ALKALINE PHOSPHATASE 107 U/L (40-136); BILIRUBIN,TOTAL 0.6 MG/DL (0.1-1.0); BUN/CREATININE RATIO 19; CALCIUM 8.7 MG/DL (8.5-10.1); CARBON DIOXIDE 22 MMOL/L (21-32); CHLORIDE 99 MMOL/L (98-107); GFR ESTIMATED > 60; GLUCOSE 73 MG/DL (70-105); POTASSIUM 4.3 MMOL/L (3.6-5.0); TOTAL PROTEIN 7.9 GM/DL (6.4-8.2)
== END ==
LOC: LAB FS 15:51
PROVIDERS: ATTEND Nurse Practitioner
DX: D64.9 Anemia, unspecified (principal); K70.31 Alcoholic cirrhosis of liver with ascites
CPT/HCPCS: 36415; 80053; 82728; 83540; 85025

== ENCOUNTER 2018-09-19 17:27 | Emergency (ER) | payer BC ==
[~2018-09-19] VITALS: Ht 172.7 cm; Wt 74.8 kg
--- OUTSIDE RECORDS SUMMARY | 2018-09-19 17:33 | XMS REPORT | Continuity of Care Document ---
Author Organization Unknown Address Unknown Allergies Active Description Code Type Severity Reaction Onset Reported/Identified Relationship to Patient Clinical Status Yes CODIENE CODIENE Unknown N/A 06/13/2018 Medications There is no data. Problems Date Dx Coded Attending Type Code Diagnosis Diagnosed By 06/13/2018 JACI KANG MD, Ot M79.89 OTHER SPECIFIED SOFT TISSUE DISORDERS 06/13/2018 JACI KANG MD, Ot R60.0 LOCALIZED EDEMA 07/09/2018 REGAN OLVERA MD, Ot B96.81 HELICOBACTER PYLORI THE CAUSE OF DISE 07/09/2018 REGAN OLVERA MD, Ot D64.9 ANEMIA, UNSPECIFIED 07/09/2018 REGAN OLVERA MD, Ot E87.1 HYPO-OSMOLALITY AND HYPONATREMIA 07/09/2018 REGAN OLVERA MD, Ot F17.290 NICOTINE DEPENDENCE, OTHER TOBACCO PRODU 07/09/2018 REGAN OLVERA MD, Ot F41.9 ANXIETY DISORDER, UNSPECIFIED 07/09/2018 REGAN OLVERA MD, Ot I85.00 ESOPHAGEAL VARICES WITHOUT BLEEDING 07/09/2018 REGAN OLVERA MD, Ot K21.0 GASTRO-ESOPHAGEAL REFLUX DISEASE WITH ES 07/09/2018 REGAN OLVERA MD, Ot K25.4 CHRONIC OR UNSPECIFIED GASTRIC ULCER WIT 07/09/2018 REGAN OLVERA MD, Ot K29.50 UNSPECIFIED CHRONIC GASTRITIS WITHOUT BL 07/09/2018 REGAN OLVERA MD, Ot K70.31 ALCOHOLIC CIRRHOSIS OF LIVER WITH ASCITE 07/09/2018 REGAN OLVERA MD, Ot K76.6 PORTAL HYPERTENSION 07/09/2018 REGAN OLVERA MD, Ot K92.0 HEMATEMESIS 07/09/2018 REGAN OLVERA MD, Ot R60.0 LOCALIZED EDEMA 07/09/2018 REGAN OVLERA MD, Ot R79.1 ABNORMAL COAGULATION PROFILE 07/09/2018 REGAN OLVERA MD, Ot Z87.19 PERSONAL HISTORY OF OTHER DISEASES OF TH 07/09/2018 WADE DAMIAN, REGAN Bateman Ot Z88.5 ALLERGY STATUS TO NARCOTIC AGENT STATUS 07/21/2018 MARIAH CORONA MD Ot E83.42 HYPOMAGNESEMIA 07/21/2018 MARIAH CORONA MD Ot F41.9 ANXIETY DISORDER, UNSPECIFIED 07/21/2018 MARIAH CORONA MD Ot K21.9 GASTRO-ESOPHAGEAL REFLUX DISEASE WITHOUT 07/21/2018 MARIAH CORONA MD Ot K70.31 ALCOHOLIC CIRRHOSIS OF LIVER WITH ASCITE 07/21/2018 MARIAH CORONA MD Ot R19.09 OTHER INTRA-ABDOMINAL AND PELVIC SWELLIN 07/21/2018 MARIAH CORONA MD Ot Z87.19 PERSONAL HISTORY OF OTHER DISEASES OF 07/21/2018 MARIAH CORONA MD Ot Z88.5 ALLERGY STATUS TO NARCOTIC AGENT STATUS 07/21/2018 MARIAH CORONA MD Ot Z98.890 OTHER SPECIFIED POSTPROCEDURAL STATES 07/24/2018 MARIAH CORONA MD Ot E83.42 HYPOMAGNESEMIA 07/24/2018 MARIAH CORONA MD Ot F41.9 ANXIETY DISORDER, UNSPECIFIED 07/24/2018 MARIAH CORONA MD Ot K21.9 GASTRO-ESOPHAGEAL REFLUX DISEASE WITHOUT 07/24/2018 MARIAH CORONA MD Ot K70.31 ALCOHOLIC CIRRHOSIS OF LIVER WITH ASCITE 07/24/2018 MARIAH CORONA MD Ot R19.09 OTHER INTRA-ABDOMINAL AND PELVIC SWELLIN 07/24/2018 MARIAH CORONA MD Ot Z87.19 PERSONAL HISTORY OF OTHER DISEASES OF 07/24/2018 MARIAH CORONA MD Ot Z88.5 ALLERGY STATUS TO NARCOTIC AGENT STATUS 07/24/2018 MARIAH CORONA MD Ot Z98.890 OTHER SPECIFIED POSTPROCEDURAL STATES 09/05/2018 [employer]NE [employer] Ot D64.9 ANEMIA, UNSPECIFIED 09/05/2018 [employer]NE [employer] Ot K70.31 ALCOHOLIC CIRRHOSIS OF LIVER WITH ASCITE 09/05/2018 [employer] Ot D64.9 ANEMIA, UNSPECIFIED 09/05/2018 [employer] Ot K70.31 ALCOHOLIC CIRRHOSIS OF LIVER WITH ASCITE 09/05/2018 [employer] Ot D64.9 ANEMIA, UNSPECIFIED 09/05/2018 [employer] Ot K70.31 ALCOHOLIC CIRRHOSIS OF LIVER WITH ASCITE 09/14/2018 BLAYNE CRISOSTOMO APRN Ot D64.9 ANEMIA, UNSPECIFIED 09/14/2018 BLAYNE CRISOSTOMO APRN Ot K70.31 ALCOHOLIC CIRRHOSIS OF LIVER WITH ASCITE Procedures Code Description Performed By Performed On [id number] DRAINAGE OF PERITONEAL CAVITY WITH DRAIN 07/08/2018 [id number] EXCISION OF STOMACH, ENDO, DIAGN 07/09/2018 [id number] EXCISION OF STOMACH, PYLORUS, ENDO, DIAG 07/09/2018 Results Test Result Range Automated blood complete blood count (hemogram) panel - 06/13/18 05:50 Blood leukocytes automated count (number/volume) 3.6 10*3/uL 4.3-11.0 Blood erythrocytes automated count (number/volume) 3.93 10*6/uL 4.35-5.85 Venous blood hemoglobin measurement (mass/volume) 10.4 g/dL 13.3-17.7 Blood hematocrit (volume fraction) 33 % 40-54 Automated erythrocyte mean corpuscular volume 84 [foz_us] 80-99 Automated erythrocyte mean corpuscular hemoglobin (mass per erythrocyte) 26 pg 25-34 Automated erythrocyte mean corpuscular hemoglobin concentration measurement (mass/volume) 27 g/dL 32-36 Automated erythrocyte distribution width ratio 16.1 % 10.0- 14.5 Automated blood platelet count (count/volume) 88 10*3/uL 130- 400 Automated blood platelet mean volume measurement 10.3 [foz_us] 7.4-10.4 Comprehensive metabolic panel - 06/13/18 05:50 Serum or plasma sodium measurement (moles/volume) 135 mmol/L 135-145 Serum or plasma potassium measurement (moles/volume) 3.9 mmol/L 3.6-5.0 Serum or plasma chloride measurement (moles/volume) 100 mmol/L 98-107 Carbon dioxide 25 mmol/L 21-32 Serum or plasma anion gap determination (moles/volume) 10 mmol/L 5-14 Serum or plasma urea nitrogen measurement (mass/volume) 5 mg/dL 7-18 Serum or plasma creatinine measurement (mass/volume) 0.59 mg/dL 0.60-1.30 Serum or plasma urea nitrogen/creatinine mass ratio 8 NRG Serum or plasma creatinine measurement with calculation of estimated glomerular filtration rate > NRG Serum or plasma glucose measurement (mass/volume) 99 mg/dL 70-105 Serum or plasma calcium measurement (mass/volume) 8.3 mg/dL 8.5-10.1 Serum or plasma total bilirubin measurement (mass/volume) 1.4 mg/dL 0.1-1.0 Serum or plasma alkaline phosphatase measurement (enzymatic activity/volume) 124 U/L 40-136 Serum or plasma aspartate aminotransferase measurement (enzymatic activity/volume) 59 U/L 5-34 Serum or plasma alanine aminotransferase measurement (enzymatic activity/volume) 20 U/L 0-55 Serum or plasma protein measurement (mass/volume) 7.1 g/dL 6.4-8.2 Serum or plasma albumin measurement (mass/volume) 3.0 g/dL 3.2-4.5 CALCIUM CORRECTED 9.1 mg/dL 8.5-10.1 TROPONIN T - 06/13/18 05:50 TROPONIN T 11 % <=15 PROBNP FS - 06/13/18 05:50 PROBNP FS 88.7 pg/mL <75.0 PT/INR - 06/29/18 17:43 INR 1.3 NRG PT 13.2 sec 9.0-11.5 Complete blood count (CBC) with automated white blood cell (WBC) differential - 07/07/18 16:51 Blood leukocytes automated count (number/volume) 6.3 10*3/uL 4.3-11.0 Blood erythrocytes automated count (number/volume) 2.85 10*6/uL 4.35-5.85 Venous blood hemoglobin measurement (mass/volume) 7.5 g/dL 13.3-17.7 Blood hematocrit (volume fraction) 24 % 40-54 Automated erythrocyte mean corpuscular volume 83 [foz_us] 80-99 Automated erythrocyte mean corpuscular hemoglobin (mass per erythrocyte) 26 pg 25-34 Automated erythrocyte mean corpuscular hemoglobin concentration measurement (mass/volume) 32 g/dL 32-36 Automated erythrocyte distribution width ratio 16.9 % 10.0- 14.5 Automated blood platelet count (count/volume) 113 10*3/uL 130-400 Automated blood platelet mean volume measurement 9.0 [foz_us] 7.4-10.4 Automated blood neutrophils/100 leukocytes 66 % 42-75 Automated blood lymphocytes/100 leukocytes 14 % 12-44 Blood monocytes/100 leukocytes 17 % 0-12 Automated blood eosinophils/100 leukocytes 3 % 0-10 Automated blood basophils/100 leukocytes 1 % 0-10 Blood neutrophils automated count (number/volume) 4.1 10*3 1.8-7.8 Blood lymphocytes automated count (number/volume) 0.9 10*3 1.0-4.0 Blood monocytes automated count (number/volume) 1.1 10*3 0.0- 1.0 Automated eosinophil count 0.2 10*3/uL 0.0-0.3 Automated blood basophil count (count/volume) 0.0 10*3/uL 0.0-0.1 Comprehensive metabolic panel - 07/07/18 16:51 Serum or plasma sodium measurement (moles/volume) 128 mmol/L 135-145 Serum or plasma potassium measurement (moles/volume) 4.1 mmol/L 3.6-5.0 Serum or plasma chloride measurement (moles/volume) 96 mmol/L 98-107 Carbon dioxide 28 mmol/L 21-32 Serum or plasma anion gap determination (moles/volume) 4 mmol/L 5-14 Serum or plasma urea nitrogen measurement (mass/volume) 13 mg/dL 7-18 Serum or plasma creatinine measurement (mass/volume) 0.65 mg/dL 0.60-1.30 Serum or plasma urea nitrogen/creatinine mass ratio 20 NRG Serum or plasma creatinine measurement with calculation of estimated glomerular filtration rate > NRG Serum or plasma glucose measurement (mass/volume) 103 mg/dL 70-105 Serum or plasma calcium measurement (mass/volume) 7.8 mg/dL 8.5-10.1 Serum or plasma total bilirubin measurement (mass/volume) 1.9 mg/dL 0.1-1.0 Serum or plasma alkaline phosphatase measurement (enzymatic activity/volume) 82 U/L 40-136 Serum or plasma aspartate aminotransferase measurement (enzymatic activity/volume) 52 U/L 5-34 Serum or plasma alanine aminotransferase measurement (enzymatic activity/volume) 16 U/L 0-55 Serum or plasma protein measurement (mass/volume) 6.2 g/dL 6.4-8.2 Serum or plasma albumin measurement (mass/volume) 2.4 g/dL 3.2-4.5 CALCIUM CORRECTED 9.1 mg/dL 8.5-10.1 Serum or plasma amylase measurement (enzymatic activity/volume) - 07/07/18 16:51 Serum or plasma amylase measurement (enzymatic activity/volume) 24 U/L 25-125 Lipase - 07/07/18 16:51 Lipase 19 U/L 8-78 Serum or plasma lithium measurement (moles/volume) - 07/07/18 16:51 BNP level 35.9 pg/mL <100.0 PT panel in platelet poor plasma by coagulation assay - 07/07/18 16:51 Prothrombin time (PT) in platelet poor plasma by coagulation assay 21.1 s 12.2-14.7 INR in platelet poor plasma or blood by coagulation assay 1.7 0.8-1.4 Acute hepatitis panel - 07/07/18 16:51 Confirmatory quantitative serum or plasma hepatitis B virus surface antigen measurement Non-Reactive Non-Reactive Hepatitis A virus IgM antibody assay Non-Reactive Non-Reactive Hepatitis B virus core IgM antibody assay Non-Reactive Non- Reactive Serum hepatitis C virus antibody detection Non-Reactive Non- Reactive Complete urinalysis with reflex to culture - 07/07/18 16:59 Urine color determination YELLOW NRG Urine clarity determination CLEAR NRG Urine pH measurement by test strip 8 5-9 Specific gravity of urine by test strip 1.010 1.016-1.022 Urine protein assay by test strip, semi-quantitative NEGATIVE NEGATIVE Urine glucose detection by automated test strip NEGATIVE NEGATIVE Erythrocytes detection in urine sediment by light microscopy NEGATIVE NEGATIVE Urine ketones detection by automated test strip 1+ NEGATIVE Urine nitrite detection by test strip NEGATIVE NEGATIVE Urine total bilirubin detection by test strip NEGATIVE NEGATIVE Urine urobilinogen measurement by automated test strip (mass/volume) 4 mg/dL NORMAL Urine leukocyte esterase detection by dipstick NEGATIVE NEGATIVE Automated urine sediment erythrocyte count by microscopy (number/high power field) NONE NRG Automated urine sediment leukocyte count by microscopy (number/high power field) NONE NRG Bacteria detection in urine sediment by light microscopy TRACE NRG Squamous epithelial cells detection in urine sediment by light microscopy RARE NRG Crystals detection in urine sediment by light microscopy NONE NRG Casts detection in urine sediment by light microscopy NONE NRG Mucus detection in urine sediment by light microscopy NEGATIVE NRG Complete urinalysis with reflex to culture NO NRG RED CELLS LEUKO REDUCED AS1 - 07/07/18 20:37 RED CELLS LEUKO REDUCED AS1 TRANSFUSED 07/08/18 0225 NRG Blood type T Indirect antibody screen panel - 07/07/18 20:37 ABO+Rh group OP NRG Transfusion band number [id number] NRG Blood group antibody screen NEGATIVE NRG Whole blood hemoglobin and hematocrit panel - 07/07/18 23:15 Venous blood hemoglobin measurement (mass/volume) 6.6 g/dL 13.3-17.7 Blood hematocrit (volume fraction) 21 % 40-54 Complete blood count (CBC) with automated white blood cell (WBC) differential - 07/08/18 05:55 Blood leukocytes automated count (number/volume) 5.5 10*3/uL 4.3-11.0 Blood erythrocytes automated count (number/volume) 2.74 10*6/uL 4.35-5.85 Venous blood hemoglobin measurement (mass/volume) 7.5 g/dL 13.3-17.7 Blood hematocrit (volume fraction) 23 % 40-54 Automated erythrocyte mean corpuscular volume 85 [foz_us] 80-99 Automated erythrocyte mean corpuscular hemoglobin (mass per erythrocyte) 27 pg 25-34 Automated erythrocyte mean corpuscular hemoglobin concentration measurement (mass/volume) 32 g/dL 32-36 Automated erythrocyte distribution width ratio 16.8 % 10.0- 14.5 Automated blood platelet count (count/volume) 104 10*3/uL 130-400 Automated blood platelet mean volume measurement 9.4 [foz_us] 7.4-10.4 Automated blood neutrophils/100 leukocytes 66 % 42-75 Automated blood lymphocytes/100 leukocytes 14 % 12-44 Blood monocytes/100 leukocytes 15 % 0-12 Automated blood eosinophils/100 leukocytes 4 % 0-10 Automated blood basophils/100 leukocytes 1 % 0-10 Blood neutrophils automated count (number/volume) 3.7 10*3 1.8-7.8 Blood lymphocytes automated count (number/volume) 0.8 10*3 1.0-4.0 Blood monocytes automated count (number/volume) 0.9 10*3 0.0- 1.0 Automated eosinophil count 0.2 10*3/uL 0.0-0.3 Automated blood basophil count (count/volume) 0.1 10*3/uL 0.0-0.1 Comprehensive metabolic panel - 04/06/19 05:55 Serum or plasma sodium measurement (moles/volume) 135 mmol/L 135-145 Serum or plasma potassium measurement (moles/volume) 4.0 mmol/L 3.6-5.0 Serum or plasma chloride measurement (moles/volume) 104 mmol/L 98-107 Carbon dioxide 27 mmol/L 21-32 Serum or plasma anion gap determination (moles/volume) 4 mmol/L 5-14 Serum or plasma urea nitrogen measurement (mass/volume) 18 mg/dL 7-18 Serum or plasma creatinine measurement (mass/volume) 0.63 mg/dL 0.60-1.30 Serum or plasma urea nitrogen/creatinine mass ratio 29 NRG Serum or plasma creatinine measurement with calculation of estimated glomerular filtration rate > NRG Serum or plasma glucose measurement (mass/volume) 106 mg/dL 70-105 Serum or plasma calcium measurement (mass/volume) 7.6 mg/dL 8.5-10.1 Serum or plasma total bilirubin measurement (mass/volume) 2.0 mg/dL 0.1-1.0 Serum or plasma alkaline phosphatase measurement (enzymatic activity/volume) 65 U/L 40-136 Serum or plasma aspartate aminotransferase measurement (enzymatic activity/volume) 40 U/L 5-34 Serum or plasma alanine aminotransferase measurement (enzymatic activity/volume) 15 U/L 0-55 Serum or plasma protein measurement (mass/volume) 5.2 g/dL 6.4-8.2 Serum or plasma albumin measurement (mass/volume) 2.1 g/dL 3.2-4.5 CALCIUM CORRECTED 9.1 mg/dL 8.5-10.1 Body fluid cell count - 07/08/18 12:10 Specimen source identification of body fluid PERITON NRG Evaluation of color of body fluid YELLOW NRG Determination of appearance of body fluid SLT CLDY NRG Body fluid leukocytes count (number/volume) 95.5 /uL NRG Body fluid erythrocytes count (number/volume) 95.5 /uL NRG Manual body fluid polymorphonuclear cells/100 leukocytes 26 % NRG Manual body fluid mononuclear cells/100 leukocytes 0 % NRG Manual body fluid lymphocytes/100 leukocytes 67 % NRG Other cells/100 leukocytes in body fluid by manual count 7 % NRG Glucose body fluid - 07/08/18 12:10 Glucose body fluid 110 mg/dL NRG Body fluid total protein measurement - 07/08/18 12:10 Body fluid total protein measurement 1.5 g/dL NRG Body fluid albumin measurement (mass/volume) - 07/08/18 12:10 Body fluid albumin measurement (mass/volume) 0.7 g/dL NRG Body fluid/serum or plasma lactate dehydrogenase (LDH) ratio - 07/08/18 12:10 Body fluid/serum or plasma lactate dehydrogenase (LDH) ratio 56 U/L NRG Amylase body fluid - 07/08/18 12:10 Amylase body fluid 7 U/L NRG Gram stain microscopy - 07/08/18 12:10 Gram stain microscopy 4--, 1805. NRG Bacterial body fluid culture - 07/08/18 12:10 Bacterial body fluid culture NG NRG Bacteria identification in isolate by anaerobe culture - 07/08/18 12:10 Bacteria identification in isolate by anaerobe culture NOANA NRG Complete blood count (CBC) with automated white blood cell (WBC) differential - 07/09/18 04:55 Blood leukocytes automated count (number/volume) 3.7 10*3/uL 4.3-11.0 Blood erythrocytes automated count (number/volume) 2.70 10*6/uL 4.35-5.85 Venous blood hemoglobin measurement (mass/volume) 7.4 g/dL 13.3-17.7 Blood hematocrit (volume fraction) 23 % 40-54 Automated erythrocyte mean corpuscular volume 86 [foz_us] 80-99 Automated erythrocyte mean corpuscular hemoglobin (mass per erythrocyte) 27 pg 25-34 Automated erythrocyte mean corpuscular hemoglobin concentration measurement (mass/volume) 32 g/dL 32-36 Automated erythrocyte distribution width ratio 17.7 % 10.0- 14.5 Automated blood platelet count (count/volume) 98 10*3/uL 130- 400 Automated blood platelet mean volume measurement 9.9 [foz_us] 7.4-10.4 Automated blood neutrophils/100 leukocytes 59 % 42-75 Automated blood lymphocytes/100 leukocytes 21 % 12-44 Blood monocytes/100 leukocytes 13 % 0-12 Automated blood eosinophils/100 leukocytes 6 % 0-10 Automated blood basophils/100 leukocytes 1 % 0-10 Blood neutrophils automated count (number/volume) 2.2 10*3 1.8-7.8 Blood lymphocytes automated count (number/volume) 0.8 10*3 1.0-4.0 Blood monocytes automated count (number/volume) 0.5 10*3 0.0- 1.0 Automated eosinophil count 0.2 10*3/uL 0.0-0.3 Automated blood basophil count (count/volume) 0.0 10*3/uL 0.0-0.1 Comprehensive metabolic panel - 07/09/18 04:55 Serum or plasma sodium measurement (moles/volume) 138 mmol/L 135-145 Serum or plasma potassium measurement (moles/volume) 3.6 mmol/L 3.6-5.0 Serum or plasma chloride measurement (moles/volume) 111 mmol/L 98-107 Carbon dioxide 22 mmol/L 21-32 Serum or plasma anion gap determination (moles/volume) 5 mmol/L 5-14 Serum or plasma urea nitrogen measurement (mass/volume) 13 mg/dL 7-18 Serum or plasma creatinine measurement (mass/volume) 0.63 mg/dL 0.60-1.30 Serum or plasma urea nitrogen/creatinine mass ratio 21 NRG Serum or plasma creatinine measurement with calculation of estimated glomerular filtration rate > NRG Serum or plasma glucose measurement (mass/volume) 94 mg/dL 70-105 Serum or plasma calcium measurement (mass/volume) 7.5 mg/dL 8.5-10.1 Serum or plasma total bilirubin measurement (mass/volume) 1.2 mg/dL 0.1-1.0 Serum or plasma alkaline phosphatase measurement (enzymatic activity/volume) 58 U/L 40-136 Serum or plasma aspartate aminotransferase measurement (enzymatic activity/volume) 40 U/L 5-34 Serum or plasma alanine aminotransferase measurement (enzymatic activity/volume) 12 U/L 0-55 Serum or plasma protein measurement (mass/volume) 5.1 g/dL 6.4-8.2 Serum or plasma albumin measurement (mass/volume) 1.9 g/dL 3.2-4.5 CALCIUM CORRECTED 9.2 mg/dL 8.5-10.1 PT panel in platelet poor plasma by coagulation assay - 07/09/18 04:55 Prothrombin time (PT) in platelet poor plasma by coagulation assay 19.4 s 12.2-14.7 INR in platelet poor plasma or blood by coagulation assay 1.6 0.8-1.4 Complete blood count (CBC) with automated white blood cell (WBC) differential - 07/21/18 18:31 Blood leukocytes automated count (number/volume) 4.0 10*3/uL 4.3-11.0 Blood erythrocytes automated count (number/volume) 3.06 10*6/uL 4.35-5.85 Venous blood hemoglobin measurement (mass/volume) 8.1 g/dL 13.3-17.7 Blood hematocrit (volume fraction) 26 % 40-54 Automated erythrocyte mean corpuscular volume 85 [foz_us] 80-99 Automated erythrocyte mean corpuscular hemoglobin (mass per erythrocyte) 26 pg 25-34 Automated erythrocyte mean corpuscular hemoglobin concentration measurement (mass/volume) 31 g/dL 32-36 Automated erythrocyte distribution width ratio 18.3 % 10.0- 14.5 Automated blood platelet count (count/volume) 156 10*3/uL 130-400 Automated blood platelet mean volume measurement 10.0 [foz_us] 7.4-10.4 Automated blood neutrophils/100 leukocytes 59 % 42-75 Automated blood lymphocytes/100 leukocytes 17 % 12-44 Blood monocytes/100 leukocytes 16 % 0-12 Automated blood eosinophils/100 leukocytes 7 % 0-10 Automated blood basophils/100 leukocytes 2 % 0-10 Blood neutrophils automated count (number/volume) 2.3 10*3 1.8-7.8 Blood lymphocytes automated count (number/volume) 0.7 10*3 1.0-4.0 Blood monocytes automated count (number/volume) 0.6 10*3 0.0- 1.0 Automated eosinophil count 0.3 10*3/uL 0.0-0.3 Automated blood basophil count (count/volume) 0.1 10*3/uL 0.0-0.1 PT panel in platelet poor plasma by coagulation assay - 07/21/18 18:31 Prothrombin time (PT) in platelet poor plasma by coagulation assay 19.5 s 12.2-14.7 INR in platelet poor plasma or blood by coagulation assay 1.6 0.8-1.4 Activated partial thromboplastin time (aPTT) in platelet poor plasma bycoagulation assay - 07/21/18 18:31 Activated partial thromboplastin time (aPTT) in platelet poor plasma bycoagulation assay 38 s 24-35 Comprehensive metabolic panel - 07/21/18 18:31 Serum or plasma sodium measurement (moles/volume) 136 mmol/L 135-145 Serum or plasma potassium measurement (moles/volume) 3.5 mmol/L 3.6-5.0 Serum or plasma chloride measurement (moles/volume) 104 mmol/L 98-107 Carbon dioxide 24 mmol/L 21-32 Serum or plasma anion gap determination (moles/volume) 8 mmol/L 5-14 Serum or plasma urea nitrogen measurement (mass/volume) 11 mg/dL 7-18 Serum or plasma creatinine measurement (mass/volume) 0.73 mg/dL 0.60-1.30 Serum or plasma urea nitrogen/creatinine mass ratio 15 NRG Serum or plasma creatinine measurement with calculation of estimated glomerular filtration rate > NRG Serum or plasma glucose measurement (mass/volume) 132 mg/dL 70-105 Serum or plasma calcium measurement (mass/volume) 7.9 mg/dL 8.5-10.1 Serum or plasma total bilirubin measurement (mass/volume) 0.8 mg/dL 0.1-1.0 Serum or plasma alkaline phosphatase measurement (enzymatic activity/volume) 91 U/L 40-136 Serum or plasma aspartate aminotransferase measurement (enzymatic activity/volume) 40 U/L 5-34 Serum or plasma alanine aminotransferase measurement (enzymatic activity/volume) 18 U/L 0-55 Serum or plasma protein measurement (mass/volume) 6.0 g/dL 6.4-8.2 Serum or plasma albumin measurement (mass/volume) 2.3 g/dL 3.2-4.5 CALCIUM CORRECTED 9.3 mg/dL 8.5-10.1 Magnesium - 07/21/18 18:31 Magnesium 1.5 mg/dL 1.8-2.4 Serum or plasma C reactive protein measurement (mass/volume) - 07/21/18 18:31 Serum or plasma C reactive protein measurement (mass/volume) 0.53 mg/dL 0.00-0.50 Serum or plasma lithium measurement (moles/volume) - 07/21/18 18:31 BNP level 103.0 pg/mL <100.0 THYROID STIMULATING HORMONE - 07/21/18 18:31 THYROID STIMULATING HORMONE 1.95 u[iU]/mL 0.35-4.94 Complete blood count (CBC) with automated white blood cell (WBC) differential - 08/30/18 16:05 Blood leukocytes automated count (number/volume) 4.7 10*3/uL 4.3-11.0 Blood erythrocytes automated count (number/volume) 4.15 10*6/uL 4.35-5.85 Venous blood hemoglobin measurement (mass/volume) 9.5 g/dL 13.3-17.7 Blood hematocrit (volume fraction) 32 % 40-54 Automated erythrocyte mean corpuscular volume 77 [foz_us] 80-99 Automated erythrocyte mean corpuscular hemoglobin (mass per erythrocyte) 23 pg 25-34 Automated erythrocyte mean corpuscular hemoglobin concentration measurement (mass/volume) 30 g/dL 32-36 Automated erythrocyte distribution width ratio 20.4 % 10.0- 14.5 Automated blood platelet count (count/volume) 127 10*3/uL 130-400 Automated blood platelet mean volume measurement 10.2 [foz_us] 7.4-10.4 Automated blood neutrophils/100 leukocytes 60 % 42-75 Automated blood lymphocytes/100 leukocytes 19 % 12-44 Blood monocytes/100 leukocytes 16 % 0-12 Automated blood eosinophils/100 leukocytes 4 % 0-10 Automated blood basophils/100 leukocytes 1 % 0-10 Blood neutrophils automated count (number/volume) 2.8 10*3 1.8-7.8 Blood lymphocytes automated count (number/volume) 0.9 10*3 1.0-4.0 Blood monocytes automated count (number/volume) 0.8 10*3 0.0- 1.0 Automated eosinophil count 0.2 10*3/uL 0.0-0.3 Automated blood basophil count (count/volume) 0.1 10*3/uL 0.0-0.1 Comprehensive metabolic panel - 08/30/18 16:05 Serum or plasma sodium measurement (moles/volume) 138 mmol/L 135-145 Serum or plasma potassium measurement (moles/volume) 4.3 mmol/L 3.6-5.0 Serum or plasma chloride measurement (moles/volume) 99 mmol/L 98-107 Carbon dioxide 22 mmol/L 21-32 Serum or plasma anion gap determination (moles/volume) 17 mmol/L 5-14 Serum or plasma urea nitrogen measurement (mass/volume) 17 mg/dL 7-18 Serum or plasma creatinine measurement (mass/volume) 0.90 mg/dL 0.60-1.30 Serum or plasma urea nitrogen/creatinine mass ratio 19 NRG Serum or plasma creatinine measurement with calculation of estimated glomerular filtration rate > NRG Serum or plasma glucose measurement (mass/volume) 73 mg/dL 70-105 Serum or plasma calcium measurement (mass/volume) 8.7 mg/dL 8.5-10.1 Serum or plasma total bilirubin measurement (mass/volume) 0.6 mg/dL 0.1-1.0 Serum or plasma alkaline phosphatase measurement (enzymatic activity/volume) 107 U/L 40-136 Serum or plasma aspartate aminotransferase measurement (enzymatic activity/volume) 47 U/L 5-34 Serum or plasma alanine aminotransferase measurement (enzymatic activity/volume) 19 U/L 0-55 Serum or plasma protein measurement (mass/volume) 7.9 g/dL 6.4-8.2 Serum or plasma albumin measurement (mass/volume) 3.1 g/dL 3.2-4.5 CALCIUM CORRECTED 9.4 mg/dL 8.5-10.1 Serum iron and total iron binding capacity panel - 08/30/18 16:10 Serum or plasma iron measurement (mass/volume) 19 % 40-180 Total iron binding capacity and transferrin saturation measurement 4 % 15-50 Iron binding capacity [mass/volume] in serum or plasma 451 % 280-380 UIBC (unsaturated iron binding capacity) 432 % 55-450 Serum or plasma ferritin measurement (mass/volume) 21.4 % 32.0-356.0 Complete blood count (CBC) with automated white blood cell (WBC) differential - 09/19/18 11:51 Blood leukocytes automated count (number/volume) 6.6 10*3/uL 4.3-11.0 Blood erythrocytes automated count (number/volume) 3.00 10*6/uL 4.35-5.85 Venous blood hemoglobin measurement (mass/volume) 7.5 g/dL 13.3-17.7 Blood hematocrit (volume fraction) 24 % 40-54 Automated erythrocyte mean corpuscular volume 80 [foz_us] 80-99 Automated erythrocyte mean corpuscular hemoglobin (mass per erythrocyte) 25 pg 25-34 Automated erythrocyte mean corpuscular hemoglobin concentration measurement (mass/volume) 31 g/dL 32-36 Automated erythrocyte distribution width ratio 22.4 % 10.0- 14.5 Automated blood platelet count (count/volume) 120 10*3/uL 130-400 Automated blood platelet mean volume measurement 10.2 [foz_us] 7.4-10.4 Automated blood neutrophils/100 leukocytes 71 % 42-75 Automated blood lymphocytes/100 leukocytes 14 % 12-44 Blood monocytes/100 leukocytes 13 % 0-12 Automated blood eosinophils/100 leukocytes 1 % 0-10 Automated blood basophils/100 leukocytes 1 % 0-10 Blood neutrophils automated count (number/volume) 4.7 10*3 1.8-7.8 Blood lymphocytes automated count (number/volume) 0.9 10*3 1.0-4.0 Blood monocytes automated count (number/volume) 0.9 10*3 0.0- 1.0 Automated eosinophil count 0.1 10*3/uL 0.0-0.3 Automated blood basophil count (count/volume) 0.0 10*3/uL 0.0-0.1 Comprehensive metabolic panel - 09/19/18 11:51 Serum or plasma sodium measurement (moles/volume) 127 mmol/L 135-145 Serum or plasma potassium measurement (moles/volume) 5.3 mmol/L 3.6-5.0 Serum or plasma chloride measurement (moles/volume) 95 mmol/L 98-107 Carbon dioxide 25 mmol/L 21-32 Serum or plasma anion gap determination (moles/volume) 7 mmol/L 5-14 Serum or plasma urea nitrogen measurement (mass/volume) 24 mg/dL 7-18 Serum or plasma creatinine measurement (mass/volume) 0.78 mg/dL 0.60-1.30 Serum or plasma urea nitrogen/creatinine mass ratio 31 NRG Serum or plasma creatinine measurement with calculation of estimated glomerular filtration rate > NRG Serum or plasma glucose measurement (mass/volume) 111 mg/dL 70-105 Serum or plasma calcium measurement (mass/volume) 8.1 mg/dL 8.5-10.1 Serum or plasma total bilirubin measurement (mass/volume) 0.7 mg/dL 0.1-1.0 Serum or plasma alkaline phosphatase measurement (enzymatic activity/volume) 82 U/L 40-136 Serum or plasma aspartate aminotransferase measurement (enzymatic activity/volume) 46 U/L 5-34 Serum or plasma alanine aminotransferase measurement (enzymatic activity/volume) 31 U/L 0-55 Serum or plasma protein measurement (mass/volume) 6.4 g/dL 6.4-8.2 Serum or plasma albumin measurement (mass/volume) 2.8 g/dL 3.2-4.5 CALCIUM CORRECTED 9.1 mg/dL 8.5-10.1 Ammonia - 09/19/18 11:51 Ammonia 31 umol/L 11-32 Encounters ACCT No. Visit Date/Time Discharge Status Pt. Type Provider Facility Loc./Unit Complaint [id number] 08/04/2018 16:30:00 08/04/2018 23:59:59 CLS Outpatient [facility] [id number] 06/29/2018 16:40:00 Document Registration [id number] 08/30/2018 15:51:00 08/30/2018 23:59:59 CLS Outpatient BLAYNE CRISOSTOMO APRN [facility] LAB FS CBC W DIFF/PLT; IRON, TIBC, FERRITIN PANEL;CMP [id number] 07/21/2018 16:56:00 07/21/2018 21:09:00 DIS Emergency CHLOE DAMIAN, MARIAH Avila [facility] ER CIRRHOSIS OF THE LIVER/FLUID BUILD UP [id number] 07/07/2018 19:25:00 07/09/2018 15:45:00 DIS Inpatient WADE DAMIAN, REGAN Bateman [facility] 4TH CIRRHOSIS OF LIVER, ANEMIA [id number] 06/13/2018 05:26:00 06/13/2018 07:16:00 DIS Emergency JORGE LUIS DAMIAN, JACI Tapia [facility] ER FS BOTH LEGS SWOLLEN, RT IS MORE. [id number] 09/19/2018 11:59:00 Document Registration
--- NOTE | 2018-09-19 18:03 | ED Neurological Problem ---
General Stated Complaint: WEAK,LIGHT HEADED Source: patient, RN notes reviewed, old records Exam Limitations: no limitations History of Present Illness Date Seen by Provider: Sep 19, 2018 Time Seen by Provider: 17:57 Initial Comments Patient presents c/ c/o being weak and lightheaded. States he has been this way since he was discharged from [facility] on September 12 where he was admitted for 24 hours for complications from his Cirrhosis. He did see his PCP (BAYRON) in follow up this AM and had labs drawn and apparently restarted on his Lactulose. Doesn't know the results of any his labs from earlier. Denies any pain. No N/V. Timing/Duration: other (see above) Severity: moderate Associated Symptoms: denies symptoms (x/ as noted.), fatigue, weakness Allergies and Home Medications Allergies Coded Allergies: codeine (Verified Allergy, Unknown, 09/19/18) diphenhydramine (Verified Adverse Reaction, Unknown, restless legs, 09/19/18) Home Medications Furosemide 20 Mg Tablet, 20 MG PO DAILY Prescribed by: JACI KANG on 06/13/1858 Furosemide 20 Mg Tablet, 20 MG PO DAILY, (Reported) Furosemide 40 Mg Tablet, 40 MG PO DAILY Prescribed by: MARIAH CORONA on 07/21/182036 Lorazepam 2 Mg Tablet, 2 MG PO Q8H PRN for ANXIETY, (Reported) Magnesium Oxide 400 Mg Tablet, 400 MG PO BID Prescribed by: MARIAH CORONA on 07/21/182036 Pantoprazole Sodium 40 Mg Tablet.dr, 40 MG PO DAILY, (Reported) Potassium Chloride 10 Meq Tablet.er, 10 MEQ PO DAILY, (Reported) Spironolactone 100 Mg Tablet, 100 MG PO DAILY Prescribed by: MARIAH CORONA on 07/21/182036 Sucralfate 1 Gm Tablet, 1 GM PO ACHS, (Reported) Patient Home Medication List Home Medication List Reviewed: Yes Review of Systems Review of Systems Constitutional: see HPI, malaise, weakness Psychiatric/Neurological: See HPI, Weakness All Other Systems Reviewed Negative Unless Noted: Yes (Negative excepted noted.) Past Ddmfuxl-Wgmoxb-Fmipyg Hx Patient Social History Alcohol Beverage of Choice: Beer Type Used: Smokeless Tobacco 2nd Hand Smoke Exposure: No Recent Foreign Travel: No Contact w/Someone Who Travel: No Recent Hopitalizations: Yes (JULY 07 FOR FLUID REMOVAL FROM ABDOMEN) Immunizations Up To Date Tetanus Booster (TDap): Unknown PED Vaccines UTD: Yes Date of Influenza Vaccine: Jan 02, 2019 Seasonal Allergies Seasonal Allergies: No Past Medical History Surgeries: Yes (R knee arthroscopy, GI surgery for ulcers) Gallbladder Respiratory: No Cardiac: No Neurological: No Genitourinary: No Gastrointestinal: Yes Gastrointestinal Bleed, Ulcer, Cirrhosis Musculoskeletal: No Endocrine: No HEENT: No Cancer: No Psychosocial: Yes Anxiety Integumentary: No Blood Disorders: No Family Medical History No Pertinent Family Hx Physical Exam Vital Signs Vital Signs - First Documented 09/19/18 17:43 Temp 98.6 Pulse 95 Resp 18 B/P (MAP) 102/60 (74) Pulse Ox 99 O2 Delivery Room Air Capillary Refill : Height, Weight, BMI Height: 5'8.00" Weight: 200lbs. 0.0oz. 90.561077on; 35.4 BMI Method:Stated General Appearance: WD/WN, no apparent distress HEENT: normal ENT inspection Respiratory: no respiratory distress Cardiovascular: regular rate, rhythm Gastrointestinal: non tender Neurologic/Psychiatric: no motor/sensory deficits, alert, oriented x 3, depressed affect Skin: warm/dry Progress/Results/Core Measures Results/Orders Lab Results Laboratory Tests Test 09/19/18 19:00 Range/Units Hemoglobin 6.5 *L 13.3-17.7 G/DL Hematocrit 21 L 40-54 % Sodium Level 129 L 135-145 MMOL/L Potassium Level 5.1 H 3.6-5.0 MMOL/L Chloride Level 94 L 98-107 MMOL/L Carbon Dioxide Level 25 21-32 MMOL/L Anion Gap 10 5-14 MMOL/L Blood Urea Nitrogen 27 H 7-18 MG/DL Creatinine 0.71 0.60-1.30 MG/DL Estimat Glomerular Filtration Rate > 60 BUN/Creatinine Ratio 38 Glucose Level 127 H 70-105 MG/DL Calcium Level 7.9 L 8.5-10.1 MG/DL My Orders Orders - GARRY DIAZ DO Orthostatic Vital Signs (Adult (09/19/18 18:04) Ed Iv/Invasive Line Start (09/19/18 18:15) Hemoglobin And Hematocrit (09/19/18 18:15) Basic Metabolic Panel (09/19/18 18:15) Ns Iv 1000 Ml (Sodium Chloride 0.9%) (09/19/18 18:16) Vital Signs/I&O 09/19/18 09/19/18 09/19/18 17:43 18:53 20:28 Temp 98.6 98.6 Pulse 95 90 90 94 97 Resp 18 16 B/P (MAP) 102/60 (74) 102/54 (70) 110/64 (79) 104/61 (75) 101/58 (72) Pulse Ox 99 97 O2 Delivery Room Air Room Air Progress Progress Note : Progress Note Discussed the patient c/ Dr. Canales, the Hospitalist urology surgeon for Dr. Verma. Transfusion services are apparently not available here. Going to set the patient up for an outpatient transfusion in the AM, 09/20, thru outpatient services @ [facility]. Orders for such have been provided to the patient. Departure Impression Primary Impression: Fatigue Additional Impressions: Anemia Cirrhosis, alcoholic Disposition: 01 HOME, SELF-CARE Condition: Stable Departure-Patient Inst. Decision time for Depature: 20:27 Referrals: ONEL VERMA MD (PCP/Family) Primary Care Physician Patient Instructions: Anemia of Chronic Disease (DC) Add. Discharge Instructions: NEED TO GO TO OUTPATIENT SERVICES IN THE MORNING, 09/20, @ [facility] TO RECEIVE AN OUTPATIENT BLOOD TRANSFUSION. GARRY DIAZ DO Sep 19, 2018 18:03
[2018-09-19] MEDS ORDERED: NS IV 1000 ML 1,000 ML IV STA (18:16)
[2018-09-19 18:53] VITALS: BP_SYST 101; BP_SYST 102; BP_SYST 104; BP_DIAS 54; BP_DIAS 58; BP_DIAS 61
[2018-09-19 19:20] LABS: HEMOGLOBIN 6.5 G/DL (13.3-17.7)
--- NOTE | 2018-09-19 19:22 | NUR ---
pt. up with assistance to void.
[2018-09-19 19:40] LABS: BUN/CREATININE RATIO 38; CALCIUM 7.9 MG/DL (8.5-10.1); CARBON DIOXIDE 25 MMOL/L (21-32); CHLORIDE 94 MMOL/L (98-107); CREATININE SERUM 0.71 MG/DL (0.60-1.30); GFR ESTIMATED > 60; GLUCOSE 127 MG/DL (70-105); POTASSIUM 5.1 MMOL/L (3.6-5.0); SODIUM 129 MMOL/L (135-145)
[2018-09-19 20:28] VITALS: BP 110/64
== END 2018-09-19 20:35 | disposition home or self-care (01) ==
LOC: EDUNIT# 17:27 → ER FS 17:28
DX: R53.83 Other fatigue (principal); D64.9 Anemia, unspecified; K70.30 Alcoholic cirrhosis of liver without ascites; F41.9 Anxiety disorder, unspecified; F17.200 Nicotine dependence, unspecified, uncomplicated; Z88.5 Allergy status to narcotic agent; Z88.8 Allergy status to other drugs, medicaments and biological substances; Z98.890 Other specified postprocedural states; Z87.19 Personal history of other diseases of the digestive system
CPT/HCPCS: 36415; 80048; 85014; 85018

== ENCOUNTER 2018-09-19 22:24 | Inpatient (IN) | payer BC ==
[~2018-09-19] VITALS: Ht 172.7 cm; Wt 79.4 kg
--- OUTSIDE RECORDS SUMMARY | 2018-09-19 22:31 | XMS REPORT | Continuity of Care Document ---
[...] LOCALIZED EDEMA 07/09/2018 REGAN OLVERA MD, Ot R79.1 ABNORMAL COAGULATION PROFILE 07/09/2018 [...] OTHER SPECIFIED POSTPROCEDURAL STATES 09/05/2018 BLAYNE CRISOSTOMO HAIR BOILER Ot D64.9 ANEMIA, UNSPECIFIED 09/05/2018 BLAYNE CRISOSTOMO HAIR BOILER Ot K70.31 ALCOHOLIC CIRRHOSIS OF LIVER WITH ASCITE 09/05/2018 BLAYNE CRISOSTOMO HAIR BOILER Ot D64.9 ANEMIA, UNSPECIFIED 09/05/2018 BLAYNE CRISOSTOMO HAIR BOILER Ot K70.31 ALCOHOLIC CIRRHOSIS OF LIVER WITH ASCITE 09/05/2018 BLAYNE CRISOSTOMO HAIR BOILER Ot D64.9 ANEMIA, UNSPECIFIED 09/05/2018 BLAYNE CRISOSTOMO HAIR BOILER Ot K70.31 ALCOHOLIC CIRRHOSIS OF LIVER WITH ASCITE 09/14/2018 BLAYNE CRISOSTOMO APRN Ot D64.9 ANEMIA, UNSPECIFIED 09/14/2018 BLAYNE CRISOSTOMO APRN Ot K70.31 ALCOHOLIC CIRRHOSIS OF LIVER WITH ASCITE Procedures Code Description Performed By Performed On 6T1S52Q DRAINAGE OF PERITONEAL CAVITY WITH DRAIN 07/08/2018 [id number] EXCISION OF STOMACH, ENDO, DIAGN 07/09/2018 [id number] EXCISION OF STOMACH, PYLORUS, ENDO, DIAG 07/09/2018 [...] ABO+Rh group OP NRG Transfusion band number [id number] NRG Blood group antibody screen NEGATIVE NRG [...] - 09/19/18 11:51 Ammonia 31 umol/L 11-32 Whole blood hemoglobin and hematocrit panel - 09/19/18 19:00 Venous blood hemoglobin measurement (mass/volume) 6.5 g/dL 13.3-17.7 Blood hematocrit (volume fraction) 21 % 40-54 Whole blood basic metabolic panel - 09/19/18 19:00 Serum or plasma sodium measurement (moles/volume) 129 mmol/L 135-145 Serum or plasma potassium measurement (moles/volume) 5.1 mmol/L 3.6-5.0 Serum or plasma chloride measurement (moles/volume) 94 mmol/L 98-107 Carbon dioxide 25 mmol/L 21-32 Serum or plasma anion gap determination (moles/volume) 10 mmol/L 5-14 Serum or plasma urea nitrogen measurement (mass/volume) 27 mg/dL 7-18 Serum or plasma creatinine measurement (mass/volume) 0.71 mg/dL 0.60-1.30 Serum or plasma urea nitrogen/creatinine mass ratio 38 NRG Serum or plasma creatinine measurement with calculation of estimated glomerular filtration rate > NRG Serum or plasma glucose measurement (mass/volume) 127 mg/dL 70-105 Serum or plasma calcium measurement (mass/volume) 7.9 mg/dL 8.5-10.1 Encounters ACCT No. Visit Date/Time Discharge Status Pt. Type Provider Facility Loc./Unit Complaint [id number] 08/04/2018 16:30:00 08/04/2018 23:59:59 [facility] [id number] 06/29/2018 16:40:00 Document Registration [id number] 08/30/2018 15:51:00 08/30/2018 23:59:59 CLS Outpatient BLAYNE CRISOSTOMO APRN [facility] LAB FS CBC W DIFF/PLT; IRON, TIBC, FERRITIN PANEL;CMP [id number] 07/21/2018 16:56:00 07/21/2018 21:09:00 DIS Emergency MARIAH CORONA MD [facility] ER CIRRHOSIS OF THE LIVER/FLUID BUILD UP [id number] 07/07/2018 19:25:00 07/09/2018 15:45:00 DIS Inpatient REGAN OLVERA MD [facility] 4TH CIRRHOSIS OF LIVER, ANEMIA [id number] 06/13/2018 05:26:00 06/13/2018 07:16:00 DIS Emergency JORGE LUIS DAMIAN, JACI Tapia [facility] ER FS BOTH LEGS SWOLLEN, RT IS MORE. [id number] 09/19/2018 19:20:00 Document Registration [id number] 09/19/2018 11:59:00 Document Registration
--- NOTE | 2018-09-19 22:41 | ED GI ---
General Chief Complaint: Abdominal/GI Problems Stated Complaint: VOMITING BLOOD Source of Information: Patient, Old Records, RN Notes Reviewed Exam Limitations: No Limitations History of Present Illness Date Seen by Provider: Sep 19, 2018 Time Seen by Provider: 22:40 Initial Comments Patient represents c/ c/o hematemesis tonight. Was seen here in the ED earlier today p/ being seen by his PCP and having labs performed earlier in the day. Patient didn't know the results. Was c/o being weak and lightheaded and has been so for the last couple weeks. Patient known Alcoholic c/ Cirrhosis. Hemoglobulin was 7.5 around 11:00, 09/19, and 6.5 this afternoon. After discussing the patient c/ Dr. Canales (on-call Hospitalist), we both agreed to set the patient up for outpatient transfusion in the AM, 09/20, thru [facility] since those services aren't available here. Patient was told to return if things worsened. Timing/Duration: Other (see above) Severity/Quality: Other (DENIES ANY PAIN) Activities at Onset: Rest Modifying Factors: Worsens With Vomiting Associated Symptoms: Denies Symptoms (x/ as noted. ), Nausea/Vomiting (tonight), Weakness (ongoing) Allergies and Home Medications Allergies Coded Allergies: codeine (Verified Allergy, Unknown, 09/19/18) diphenhydramine (Verified Adverse Reaction, Unknown, restless legs, 09/19/18) Home Medications Furosemide 20 Mg Tablet, 20 MG PO DAILY Prescribed by: JACI KANG on 06/13/18 0658 Furosemide 20 Mg Tablet, 20 MG PO DAILY, (Reported) Furosemide 40 Mg Tablet, 40 MG PO DAILY Prescribed by: MARIAH COROAN on 07/21/182036 Lorazepam 2 Mg Tablet, 2 MG PO Q8H PRN for ANXIETY, (Reported) Magnesium Oxide 400 Mg Tablet, 400 MG PO BID Prescribed by: MARIAH CORONA on 07/21/182036 Pantoprazole Sodium 40 Mg Tablet.dr, 40 MG PO DAILY, (Reported) Potassium Chloride 10 Meq Tablet.er, 10 MEQ PO DAILY, (Reported) Spironolactone 100 Mg Tablet, 100 MG PO DAILY Prescribed by: MARIAH CORONA on 07/21/182036 Sucralfate 1 Gm Tablet, 1 GM PO ACHS, (Reported) Patient Home Medication List Home Medication List Reviewed: Yes Review of Systems Review of Systems Constitutional: see HPI, dizziness, malaise Gastrointestinal: See HPI; Denies Abdominal Pain; Vomiting (tonight), 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) Psychiatric/Neurological: See HPI, Weakness All Other Systems Reviewed Negative Unless Noted: Yes (Negative excepted noted.) Past Ykjqwqo-Unbaym-Eegclv Hx Patient Social History Alcohol Beverage of Choice: Beer Type Used: Smokeless Tobacco 2nd Hand Smoke Exposure: No Recent Foreign Travel: No Contact w/Someone Who Travel: No Recent Hopitalizations: Yes (JULY 07 FOR FLUID REMOVAL FROM ABDOMEN) Immunizations Up To Date Tetanus Booster (TDap): Unknown PED Vaccines UTD: Yes Date of Influenza Vaccine: Jan 02, 2019 Seasonal Allergies Seasonal Allergies: No Past Medical History Surgeries: Yes (R knee arthroscopy, GI surgery for ulcers) Gallbladder Respiratory: No Cardiac: No Neurological: Yes Seizure Disorder Genitourinary: No Gastrointestinal: Yes Gastrointestinal Bleed, Ulcer, Cirrhosis Musculoskeletal: No Endocrine: No HEENT: No Cancer: No Psychosocial: Yes Anxiety Integumentary: No Blood Disorders: No Family Medical History No Pertinent Family Hx Physical Exam Vital Signs Vital Signs - First Documented 09/19/18 22:31 Temp 97.5 Pulse 89 Resp 24 B/P (MAP) 86/49 (61) O2 Delivery Room Air Capillary Refill : Height/Weight/BMI Height: 5'8.00" Weight: 165lbs. 0.0oz. 74.173036ug; 35.4 BMI Method:Stated General Appearance: WD/WN, no apparent distress HEENT: pale conjunctivae (R), pale conjunctivae (L) Respiratory: no respiratory distress Cardiovascular: regular rate, rhythm Rectal: deferred Neurologic/Psychiatric: no motor/sensory deficits, alert, oriented x 3, d epressed affect Skin: warm/dry, pallor Progress/Results/Core Measures Results/Orders Lab Results Laboratory Tests Test 09/19/18 22:45 Range/Units White Blood Count 8.5 4.3-11.0 10^3/uL Red Blood Count 2.23 L 4.35-5.85 10^6/uL Hemoglobin 5.6 *L 13.3-17.7 G/DL Hematocrit 19 *L 40-54 % Mean Corpuscular Volume 86 80-99 FL Mean Corpuscular Hemoglobin 25 25-34 PG Mean Corpuscular Hemoglobin Concent 29 L 32-36 G/DL Red Cell Distribution Width 23.2 H 10.0-14.5 % Platelet Count 165 130-400 10^3/uL Mean Platelet Volume 10.7 H 7.4-10.4 FL Prothrombin Time 18.7 H 12.2-14.7 SEC INR Comment 1.5 H 0.8-1.4 Activated Partial Thromboplast Time 33 24-35 SEC My Orders Orders - GARRY DIAZ DO Ed Iv/Invasive Line Start (09/19/18 22:42) Cbc No Diff (09/19/18 22:42) Protime With Inr (09/19/18 22:42) Partial Thromboplastin Time (09/19/18 22:42) Pantoprazole Injection (Protonix Injecti (09/19/18 22:45) Ns (Ivpb) (Sodium C... W/Pantoprazole In (09/19/18 22:45) Ns Iv 1000 Ml (Sodium Chloride 0.9%) (09/19/18 22:58) Medications Given in ED Current Medications Medications Dose Ordered Sig/Mihaela Route Start Time Stop Time Status Last Admin Dose Admin Pantoprazole 80 mg ONCE ONCE IV 09/19/18 22:45 09/19/18 22:46 DC 09/19/18 23:11 80 MG Vital Signs/I&O 09/19/18 22:31 Temp 97.5 Pulse 89 Resp 24 B/P (MAP) 86/49 (61) O2 Delivery Room Air Departure Impression Primary Impression: Hematemesis Additional Impressions: GI bleed Anemia Cirrhosis, alcoholic Disposition: 02 XFER SHT-TRM HOSP Condition: Stable (fair) Admissions Decision to Admit Reason: Admit from ER (General) Decision to Admit/Date: Sep 19, 2018 Time/Decision to Admit Time: 23:00 Transfer Time Spoke to Accepting Phy: 23:00 Transfer Progress Notes Patient was accepted in transfer by Dr. Canales (Hospitalist). Did also give Dr. Nash (General Surgeon) a heads up on the patient as he departed the ED. Transfer Facility: [facility] Method of Transfer: EMS Departure-Patient Inst. Referrals: ONEL VERMA MD (PCP/Family) Primary Care Physician GARRY DIAZ DO Sep 19, 2018 22:41
[2018-09-19] MEDS ORDERED: PANTOPRAZOLE 40 MG (PROTONIX) VIAL IV ONE (22:45)
[2018-09-19] MEDS ORDERED: PANTOPRAZOLE INJECTION 200 MG in NS (IVPB) 100 ML IV SCH (22:45)
[2018-09-19] MEDS ORDERED: NS IV 1000 ML 1,000 ML IV STA (22:58)
[2018-09-19 22:59] LABS: WHITE BLOOD COUNT 8.5 10^3/uL (4.3-11.0)
[2018-09-19 23:00] LABS: HEMOGLOBIN 5.6 G/DL (13.3-17.7); MEAN PLATELET VOLUME 10.7 FL (7.4-10.4); RED CELL DISTRIBUTION WIDTH 23.2 % (10.0-14.5)
[2018-09-19 23:13] LABS: INR 1.5 (0.8-1.4); PROTHROMBIN TIME PATIENT 18.7 SEC (12.2-14.7)
--- OUTSIDE RECORDS SUMMARY | 2018-09-19 23:23 | XMS REPORT | Continuity of Care Document ---
[...] OTHER SPECIFIED POSTPROCEDURAL STATES 09/05/2018 BLAYNE CRISOSTOMO NATURAL RESOURCES EXTENSION EDUCATOR Ot D64.9 ANEMIA, UNSPECIFIED 09/05/2018 BLAYNE CRISOSTOMO NATURAL RESOURCES EXTENSION EDUCATOR Ot K70.31 ALCOHOLIC CIRRHOSIS OF LIVER WITH ASCITE 09/05/2018 BLAYNE CRISOSTOMO NATURAL RESOURCES EXTENSION EDUCATOR Ot D64.9 ANEMIA, UNSPECIFIED 09/05/2018 BLAYNE CRISOSTOMO NATURAL RESOURCES EXTENSION EDUCATOR Ot K70.31 ALCOHOLIC CIRRHOSIS OF LIVER WITH ASCITE 09/05/2018 BLAYNE CRISOSTOMO NATURAL RESOURCES EXTENSION EDUCATOR Ot D64.9 ANEMIA, UNSPECIFIED 09/05/2018 BLAYNE CRISOSTOOM NATURAL RESOURCES EXTENSION EDUCATOR Ot K70.31 ALCOHOLIC CIRRHOSIS OF LIVER WITH ASCITE 09/14/2018 BLAYNE CRISOSTOMO APRN Ot D64.9 ANEMIA, UNSPECIFIED 09/14/2018 BLAYNE CRISOSTOMO APRN Ot K70.31 ALCOHOLIC CIRRHOSIS OF LIVER WITH ASCITE Procedures Code Description Performed By Performed On 3D9H60M DRAINAGE OF PERITONEAL CAVITY WITH DRAIN 07/08/2018 [id number] EXCISION OF STOMACH, ENDO, DIAGN 07/09/2018 [id number] EXCISION OF STOMACH, PYLORUS, ENDO, DIAG 07/09/2018 [...] ABO+Rh group OP NRG Transfusion band number [id number] NRG Blood group antibody screen NEGATIVE NRG [...] plasma calcium measurement (mass/volume) 7.9 mg/dL 8.5-10.1 Automated blood complete blood count (hemogram) panel - 09/19/18 22:45 Blood leukocytes automated count (number/volume) 8.5 10*3/uL 4.3-11.0 Blood erythrocytes automated count (number/volume) 2.23 10*6/uL 4.35-5.85 Venous blood hemoglobin measurement (mass/volume) 5.6 g/dL 13.3-17.7 Blood hematocrit (volume fraction) 19 % 40-54 Automated erythrocyte mean corpuscular volume 86 [foz_us] 80-99 Automated erythrocyte mean corpuscular hemoglobin (mass per erythrocyte) 25 pg 25-34 Automated erythrocyte mean corpuscular hemoglobin concentration measurement (mass/volume) 29 g/dL 32-36 Automated erythrocyte distribution width ratio 23.2 % 10.0- 14.5 Automated blood platelet count (count/volume) 165 10*3/uL 130-400 Automated blood platelet mean volume measurement 10.7 [foz_us] 7.4-10.4 PT panel in platelet poor plasma by coagulation assay - 09/19/18 22:45 Prothrombin time (PT) in platelet poor plasma by coagulation assay 18.7 s 12.2-14.7 INR in platelet poor plasma or blood by coagulation assay 1.5 0.8-1.4 Activated partial thromboplastin time (aPTT) in platelet poor plasma bycoagulation assay - 09/19/18 22:45 Activated partial thromboplastin time (aPTT) in platelet poor plasma bycoagulation assay 33 s 24-35 Encounters ACCT No. Visit Date/Time Discharge Status Pt. Type Provider Facility Loc./Unit Complaint [id number] 08/04/2018 16:30:00 08/04/2018 23:59:59 [facility] [id number] 06/29/2018 16:40:00 Document Registration [id number] 08/30/2018 15:51:00 08/30/2018 23:59:59 CLS Outpatient BLAYNE CRISOSTOMO APRN [facility] LAB FS CBC W DIFF/PLT; IRON, TIBC, FERRITIN PANEL;CMP [id number] 07/21/2018 16:56:00 07/21/2018 21:09:00 DIS Emergency CHLOE DAMIAN, MARIAH Avila [facility] ER CIRRHOSIS OF THE LIVER/FLUID BUILD UP [id number] 07/07/2018 19:25:00 07/09/2018 15:45:00 DIS Inpatient WADE DAMIAN, REGAN Bateman [facility] 4TH CIRRHOSIS OF LIVER, ANEMIA [id number] 06/13/2018 05:26:00 06/13/2018 07:16:00 DIS Emergency JORGE LUIS DAMIAN, JACI Tapia [facility] ER FS BOTH LEGS SWOLLEN, RT IS MORE. [id number] 09/19/2018 23:01:00 Document Registration [id number] 09/19/2018 19:20:00 Document Registration [id number] 09/19/2018 11:59:00 Document Registration
[2018-09-20] VITALS (41 sets, daily range): BP systolic 80–157; BP diastolic 33–92
--- NOTE | 2018-09-20 00:17 | NUR ---
RECIEVEDR FROM [facility] ED, 58 YEAR OLD MALE WITH DX OF UPPER GI BLEED AND ANEMIA
--- NOTE | 2018-09-20 01:05 | NUR ---
FIRST UNIT OF PRBC'S STARTED AT THIS TIME
--- NOTE | 2018-09-20 01:45 | NUR ---
DR BARTLETT NOTIFIED OF CONSULT Addendum: 09/20/18 at 0146 by ROXI WELODN RN NOTIFIED AT 0050
[2018-09-20] MEDS: NS IV 1000 ML 1,000 ML IV SCH ×6 (02:31→20:40)
[2018-09-20] MEDS: PANTOPRAZOLE DRIP 200 MG/NS 100 ML IV SCH ×4 (02:31→15:50)
[2018-09-20] MEDS ORDERED: PROPOFOL DRIP (ICU) 100 ML IV ONE (04:55)
--- NOTE | 2018-09-20 05:00 | NUR ---
pt unresponsive to sternal rub, abg obtained, dr rojas here 0500- DR ROJAS AT BEDSIDE 0505 PREPARING TO INTUBATE, 5 [place] [address] 75 [place] 0508 ANOTHER 5 [place] 0510 INTUBATED WITH SIZE 8 ETT 23 AT THE LIP, SETTINGS OF TV 500, RATE 16, PEEP OF 5 AND 50% FIO2 0514 OG TUE PLACED 0525 100 OF FENTANYL AND 4 MG VERSED GIVEN IV PRIOR TO ATTEMPT OF CENTRAL LINE, DR ROJAS ATTEMPTED CENTRAL LINE SEVERAL TIMES WITHOUT SUCCESS
[2018-09-20] MEDS ORDERED: proPOfol 200 MG/20 ML (DIPRIVAN) VIAL IV ONE (05:03)
[2018-09-20 05:04] LABS: ABG BASE EXCESS -4.6 MMOL/L (-2.5-2.5); ABG OXYGEN SATURATION 99 % (94-100); ABG PCO2 25 MMHG (35-45); ABG PH 7.48 (7.37-7.43); ABG PO2 100 MMHG (79-93); ABG TCO2 18.9 MMOL/L (21.0-31.0)
[2018-09-20 05:06] LABS: ALLENS TEST YES-POS; INSPIRED O2 2L; PATIENT TEMP 99.4; VENTILATOR NO
[2018-09-20 05:13] LABS: HEMOGLOBIN 7.4 G/DL (13.3-17.7); MEAN PLATELET VOLUME 10.1 FL (7.4-10.4); RED CELL DISTRIBUTION WIDTH 21.5 % (10.0-14.5); WHITE BLOOD COUNT 15.8 10^3/uL (4.3-11.0)
[2018-09-20 05:30] LABS: INR 1.8 (0.8-1.4); PROTHROMBIN TIME PATIENT 21.2 SEC (12.2-14.7)
[2018-09-20 05:35] LABS: ALANINE AMINOTRANSFERASE 25 U/L (0-55); ALBUMIN 2.3 GM/DL (3.2-4.5); ALKALINE PHOSPHATASE 68 U/L (40-136); BUN/CREATININE RATIO 36; CALCIUM 7.6 MG/DL (8.5-10.1); CARBON DIOXIDE 16 MMOL/L (21-32); CHLORIDE 106 MMOL/L (98-107); CHOLESTEROL 67 MG/DL (< 200); CREATININE SERUM 0.99 MG/DL (0.60-1.30); GFR ESTIMATED > 60; GLUCOSE 114 MG/DL (70-105); HDL CHOLESTEROL 28 MG/DL (40-60); MAGNESIUM 1.8 MG/DL (1.8-2.4); PHOSPHORUS 2.8 MG/DL (2.3-4.7); POTASSIUM 4.5 MMOL/L (3.6-5.0); SODIUM 132 MMOL/L (135-145); TOTAL PROTEIN 5.2 GM/DL (6.4-8.2); TRIGLYCERIDES 46 MG/DL (<150); VLDL CHOLESTEROL 9 MG/DL (5-40)
[2018-09-20 05:47] LABS: AMMONIA 223 UMOL/L (11-32)
[2018-09-20] MEDS: POTASSIUM CL 10MEQ/50ML IVPB 50 ML IV SCH (05:58)
[2018-09-20] MEDS: MAGNESIUM 1 GM/100 ML IVPB 100 ML IV SCH (05:59)
[2018-09-20] MEDS: KCL 20 MEQ TAB (K-DUR) PO SCH (05:59)
--- NOTE | 2018-09-20 06:05 | Pulmonary Consultation ---
History of Present Illness History of Present Illness Date of Consultation 09/20/18 06:03 Time Seen by Provider: 06:03 Date of Admission History of Present Illness 58yo with hx of of alcoholic cirrhosis transferred here from [facility] secondary to acute GIB. Pt presented to ED secondary to hematemesis, weakness, and lightheaded. PT was found to have a hb of 6.5 and was transfused PRBC. Pt was awake and alert then became unresponsive this morning. When I entered ICU I was called to pt's room stat. He was completely unresponsive with gurgling respirations. PT was unresponsive to even painful stimuli. I intubated for airway protection without difficulty. I attempted central line secondary to hypotension after intubation however could not get guide wire to thread. Hypotension did respond to IVF so procedure was abandoned. PT does currently have to peripheral IVs. I am consulted for ICU management. Allergies and Home Medications Allergies Coded Allergies: codeine (Verified Allergy, Unknown, 09/19/18) diphenhydramine (Verified Adverse Reaction, Unknown, restless legs, 09/19/18) Home Medications Furosemide 20 Mg Tablet, 20 MG PO DAILY Prescribed by: JACI KANG on 06/13/18657 Furosemide 20 Mg Tablet, 20 MG PO DAILY, (Reported) Furosemide 40 Mg Tablet, 40 MG PO DAILY Prescribed by: MARIAH CORONA on 07/21/182036 Lorazepam 2 Mg Tablet, 2 MG PO Q8H PRN for ANXIETY, (Reported) Magnesium Oxide 400 Mg Tablet, 400 MG PO BID Prescribed by: MARIAH CORONA on 07/21/182036 Pantoprazole Sodium 40 Mg Tablet.dr, 40 MG PO DAILY, (Reported) Potassium Chloride 10 Meq Tablet.er, 10 MEQ PO DAILY, (Reported) Spironolactone 100 Mg Tablet, 100 MG PO DAILY Prescribed by: MARIAH CORONA on 07/21/182036 Sucralfate 1 Gm Tablet, 1 GM PO ACHS, (Reported) Past Wwvpapv-Hlzhme-Itcvya Hx Patient Social History Alcohol Beverage of Choice: Beer Type Used: Smokeless Tobacco 2nd Hand Smoke Exposure: No Recent Foreign Travel: No Contact w/Someone Who Travel: No Recent Infectious Disease Expo: No Recent Hopitalizations: Yes (JULY 07 FOR FLUID REMOVAL FROM ABDOMEN) Physical Abuse: No Sexual Abuse: No Mistreated: No Fear: No Immunizations Up To Date Tetanus Booster (TDap): Unknown PED Vaccines UTD: Yes Date of Influenza Vaccine: Jan 02, 2019 Seasonal Allergies Seasonal Allergies: No Past Medical History Surgeries: Yes (R knee arthroscopy, GI surgery for ulcers) Gallbladder Respiratory: No Cardiac: No Neurological: Yes Seizure Disorder Genitourinary: No Gastrointestinal: Yes Gastrointestinal Bleed, Ulcer, Cirrhosis Musculoskeletal: No Endocrine: No HEENT: No Cancer: No Psychosocial: Yes Anxiety Integumentary: No Blood Disorders: No Family Medical History No Pertinent Family Hx Review of Systems Time Seen by Provider: 07:12 Sepsis Event Evaluation Height, Weight, BMI Height: 5'8.00" Weight: 169lbs. 0.0oz. 76.849673gq; 25.7 BMI Method:Stated Exam Exam Vital Signs Date Time Temp Pulse Resp B/P (MAP) Pulse Ox O2 Delivery O2 Flow Rate FiO2 09/20/18 05:14 105 16 100 50 09/20/18 05:00 123 30 110/67 (81) 96 Nasal Cannula 2.00 09/20/18 04:49 99.2 122 31 118/60 95 Nasal Cannula 2.00 09/20/18 04:00 100 Nasal Cannula 2.00 09/20/18 04:00 124 32 102/63 (76) 100 Nasal Cannula 2.00 09/20/18 03:39 100.0 125 32 97/66 100 Nasal Cannula 2.00 09/20/18 03:19 100.0 129 24 97/64 100 Nasal Cannula 2.00 09/20/18 03:00 122 25 106/62 (77) 100 Nasal Cannula 2.00 09/20/18 02:03 97 Nasal Cannula 2.00 09/20/18 02:00 117 31 100/64 (76) 100 Nasal Cannula 2.00 09/20/18 01:30 125 23 107/60 (76) 100 Nasal Cannula 2.00 09/20/18 01:15 134 28 109/92 (98) 98 Nasal Cannula 2.00 09/20/18 00:45 115 28 104/61 (75) 97 Nasal Cannula 2.00 09/20/18 00:30 104 09/20/18 00:30 13 90/55 (67) 97 Nasal Cannula 2.00 09/19/18 23:16 97.5 92 16 99/45 (63) 100 Room Air 09/19/18 22:31 97.5 89 24 86/49 (61) Room Air I & O 09/20/18 07:00 Output Total 160 ml Balance -160 ml Height & Weight Height: 5'8.00" Weight: 169lbs. 0.0oz. 76.607186kt; 25.7 BMI Method:Stated General Appearance: Severe Distress, Other (unresponsive with gurgling respirations.) HEENT: PERRL/EOMI, Pharynx Normal Neck: Full Range of Motion, Non Tender, Supple Respiratory: Chest Non Tender, Accessory Muscle Use, Crackles, Decreased Breath Sounds, Rhonci Cardiovascular: No Gallop, No JVD, Tachycardia Capillary Refill: Less Than 3 Seconds Gastrointestinal: normal bowel sounds, non tender, soft Extremity: Normal Capillary Refill, No Calf Tenderness, No Pedal Edema Skin: Normal Color, Warm/Dry Lymphatic: No Adenopathy Results Lab Laboratory Tests 09/19/18 22:45 09/20/18 05:00 Assessment/Plan Assessment/Plan Acute respiratory failure -PT intubated this AM -Labs pending Hypotension -Improved with IVF -Continue to monitor Sepsis Start Zosyn, Vanco -Lopez cultures Acute GIB with Hematemesis -Monitor H&H -Currently on protonix gtt -add Octreotide gtt followed by bolus -Surgery is consulted MS changes - probably secondary to hepatic encephalopathy -Repeat Ammonia level Anemia s/p transfusion - alcoholic liver cirrhosis AMINAH ROJAS DO Sep 20, 2018 06:05
[2018-09-20] MEDS ORDERED: SODIUM BICARB 8.4% 50 MEQ/50 ML VIAL IV NR (06:15)
--- NOTE | 2018-09-20 06:15 | NUR ---
DR BARTLETT NOTIFIED OF CHANGES, ORDERS RECEIVED
[2018-09-20 06:26] LABS: AMPHETAMINE SCREEN, URINE NEGATIVE (NEGATIVE); BARBITURATE SCREEN URINE NEGATIVE (NEGATIVE); BENZODIAZEPINES SCREEN URINE POSITIVE (NEGATIVE); CANNABINOID SCREEN, URINE NEGATIVE (NEGATIVE); COCAINE SCREEN URINE NEGATIVE (NEGATIVE); METHADONE STAT NEGATIVE (NEGATIVE); METHAMPHETAMINE SCREEN URINE S NEGATIVE (NEGATIVE); OPIATE SCREEN URINE NEGATIVE (NEGATIVE); OXYCODONE STAT NEGATIVE (NEGATIVE); PROPOXYPHENE STAT NEGATIVE (NEGATIVE); TRICYCLIC ANTIDEPRESSANTS SCRE NEGATIVE (NEGATIVE)
--- NOTE | 2018-09-20 06:33 | Diagnostic Imaging Report ---
INDICATION: Central line placement. FINDINGS: ET tube and NG tube are present in good position. Lungs are relatively well-aerated with mild bibasilar atelectasis. There are no infiltrates. The heart is not enlarged. No pulmonary edema. No pneumothorax or pleural effusion. No bony abnormalities. No central lines are demonstrated. IMPRESSION: Satisfactory appearing ET tube and NG tube placement. Dictated by: Dictated on workstation # [id number]
[2018-09-20 06:59] LABS: AMMONIA 185 UMOL/L (11-32); BUN/CREATININE RATIO 36; CALCIUM 7.2 MG/DL (8.5-10.1); CARBON DIOXIDE 18 MMOL/L (21-32); CHLORIDE 106 MMOL/L (98-107); CREATININE SERUM 1.02 MG/DL (0.60-1.30); GFR ESTIMATED > 60; GLUCOSE 110 MG/DL (70-105); POTASSIUM 4.7 MMOL/L (3.6-5.0); SODIUM 131 MMOL/L (135-145); TRIGLYCERIDES 46 MG/DL (<150)
--- NOTE | 2018-09-20 07:58 | History & Physical-Hospitalist ---
History of Present Illness HPI/Chief Complaint Pt is a 58yoCF with a PMH of ESLD, esophageal varices, cirrhosis, and alcohol abuse who presented to the ER with CC of vomiting up blood. He was seen in the ER at [facility] earlier yesterday for similar symptoms and he was found to be anemic at 6.5. Outpatient transfusion was arranged here at [facility] and he was discharged home with strict return precautions. His hematemesis worsened andd he returned to the ER and was found to have a Hgb of 5.6 and was transferred here for ICU care for UGI bleed. He is intubated and unable to provide any history. All history is obtained from the records. Reportedly he was at [facility] recently and discharged on 09/12. Those records are requested. Discussed with RN and Dr Pendleton and patient had an episode of unresponsiveness necessitating intubation to protect airway. Source: patient Date Seen 09/20/18 Time Seen by a Provider: 07:59 Attending Physician Lamont Canales MD PCP Bernardo Dumont MD Referring Physician Date of Admission Sep 19, 2018 at 23:09 Home Medications & Allergies Home Medications Reviewed patient Home Medication Reconciliation performed by pharmacy medication reconciliations weed science research technician and/or nursing. Patients Allergies have been reviewed. Allergies Allergies Coded Allergies codeine (Verified Allergy, Unknown, 09/19/18) diphenhydramine (Verified Adverse Reaction, Unknown, restless legs, 09/19/18) Past Vshvvjy-Fptgaf-Xhovyo Hx Past Med/Social Hx: Reviewed Nursing Past Med/Soc Hx Patient Social History Alcohol Beverage of Choice: Beer Smoking Status: Unknown if Ever Smoked Type Used: Smokeless Tobacco 2nd Hand Smoke Exposure: No Recent Foreign Travel: No Contact w/other who traveled: No Recent Hopitalizations: Yes (JULY 07 FOR FLUID REMOVAL FROM ABDOMEN) Recent Infectious Disease Expo: No Immunizations Up To Date Tetanus Booster (TDap): Unknown Pediatric: Yes Date of Influenza Vaccine: Jan 02, 2019 Seasonal Allergies Seasonal Allergies: No Past Medical History Surgeries: Gallbladder Neurological: Seizure Disorder Gastrointestinal: Gastrointestinal Bleed, Ulcer, Cirrhosis Psychosocial: Anxiety History of Blood Disorders: No Family History Reviewed Nursing Family Hx No Pertinent Family Hx Review of Systems ROS-Unable to Obtain: intubated Constitutional: see HPI Physical Exam Physical Exam Vital Signs Vital Signs - First Documented 09/19/18 09/19/18 09/20/18 22:31 23:16 05:14 Temp 97.5 Pulse 89 Resp 24 B/P (MAP) 86/49 (61) Pulse Ox 100 O2 Delivery Room Air FiO2 50 Capillary Refill : Less Than 3 Seconds Height, Weight, BMI Height: 5'8.00" Weight: 169lbs. 0.0oz. 76.940716bh; 25.7 BMI Method:Stated General Appearance: Chronically ill, Other (sedated on vent) HEENT: Other (OG in place with copious black fluid, pupils sluggish bilaterally) Neck: Supple, Other (bandage in place when central line attempted) Respiratory: Lungs Clear, Respiratory Distress, Other (on vent) Cardiovascular: No Murmur, Normal Peripheral Pulses, Tachycardia Gastrointestinal: Normal Bowel Sounds, No Pulsatile Mass, Distended Genital/Rectal: Other (sexton catheter in place, yellow urine draining) Extremity: Normal Capillary Refill, Swelling (2+ edema to calves) Neurologic/Psychiatric: Other (sedated) Skin: No Ecchymosis; Pallor; No Petechia Results Results/Procedures Labs Laboratory Tests 09/19/18 22:45 09/20/18 05:00 09/20/18 06:10 09/20/18 12:15 Patient resulted labs reviewed. Imaging: Reviewed Imaging Films, Reviewed Imaging Report Assessment/Plan Admission Diagnosis Upper GI Bleed Admission Status: Inpatient Order (span 2 midnights) Reason for Inpatient Admission: needs surgical evaluation for possible scope, hemodynamically unstable Diagnosis/Problems Diagnosis/Problems (1) GI bleed Status: Acute Assessment & Plan: known varices, gastritis, and ulcer from July scope Hgb 5.6 on arrival now up appropriately with 2u pRBCs Continue IVF BP normotensive but soft Dr Barbosa ot attempt central line Octreotide gtt PPI Qualifiers: GI bleed type/associated pathology: gastrointestinal hemorrhage with hematemesis Qualified Codes: K92.0 - Hematemesis (2) Acute respiratory failure Assessment & Plan: Intubated 09/[address] Keerthi Michael Pulharish helm Propofol for sedation Qualifiers: Respiratory failure complication: unspecified whether with hypoxia or hypercapnia Qualified Codes: J96.00 - Acute respiratory failure, unspecified whether with hypoxia or hypercapnia (3) Altered mental status Assessment & Plan: Intubated for airrway protection following unrespsonvei episode Ammonia elevated but lab was not sent on ice Repeat pending Consider CT head Qualifiers: Altered mental status type: coma Coma depth: Gabbi coma 3-8 Coma timing: at hospital admission Qualified Codes: R40.2433 - [place] coma scale score 3-8, at hospital admission (4) KYRIE (acute kidney injury) Assessment & Plan: Up from 0.7 to ~1 in 24 hours Repeat pending Continue IVF (5) Cirrhosis, alcoholic Status: Acute Assessment & Plan: Cover for SBP with Zosyn Surgery consulted, appreciate recs Due to low BP will avoid lasix at this time Qualifiers: Ascites presence: with ascites Qualified Codes: K70.31 - Alcoholic cirrhosis of liver with ascites (6) Anemia Status: Chronic Assessment & Plan: due to acute blood loss transfused as above iron deficient from 08/30 labs Consider IV when more stable Qualifiers: Anemia type: other cause Other causes of anemia: acute posthemorrhagic Qualified Codes: D62 - Acute posthemorrhagic anemia (7) Elevated INR Status: Chronic Assessment & Plan: autoanticoagulated INR 1.8 Trend Clinical Quality Measures DVT/VTE Risk/Contraindication: Risk Factor Score Per Nursin RFS Level Per Nursing on Admit: 1=Low/No VTE PPX IRMA BLANCO MD Sep 20, 2018 07:58
[2018-09-20] MEDS: OCTREOTIDE DRIP 500 MCG/NS 99 ML IV SCH ×4 (08:00→15:39)
--- NOTE | 2018-09-20 08:32 | Pulmonary Procedures ---
Pulmonary Procedures Date of Procedure Date of Service: Sep 20, 2018 Reason for Intubation: respiratory distress Time of Intubation: 06:00 Intubation Method: orotracheal Tube Size: 8 Medications: Fentanyl, Propofol, Succinylcholine Positive End Tide CO2: Yes Breath Sounds after Intubation: bilateral-equal Intubation Complications: no complications Post Intubation Xray: Yes AMINAH ROJAS DO Sep 20, 2018 08:32
[2018-09-20] MEDS ORDERED: VANCOMYCIN 1500 MG/NS 500 ML IVPB IV NR ×2 (09:00)
--- NOTE | 2018-09-20 09:01 | Physical Therapy Progress Note ---
Therapy Progress Note Orders for PT eval received but patient is currently intubated. SREEDHAR MCNEAL PT Sep 20, 2018 09:01
[2018-09-20 12:09] LABS: OCCULT BLOOD,GASTRIC FLUID POSITIVE (NEGATIVE)
--- NOTE | 2018-09-20 12:14 | Diagnostic Imaging Report ---
PROCEDURE: CT head with and without contrast. TECHNIQUE: Multiple contiguous axial images were obtained through the brain before and after the administration of intravenous contrast. Auto Exposure Controls were utilized during the CT exam to meet ALARA standards for radiation dose reduction. INDICATION: On ventilator, unresponsive patient. FINDINGS: There is no intracranial hemorrhage and there is no hydrocephalus. The cortical sidhu-white matter differentiations are less conspicuous than typically encountered. There is CSF within the basilar cisterns. No shift or herniation. No findings to suggest focal territorial cortical edema. IMPRESSION: Diminished sidhu-white matter differential conspicuity, generalized edema could not be excluded. Correlate clinically as warranted MRI of the brain may provide additional utility. No hemorrhage, hydrocephalus, shift or herniation, however. Dictated by: Dictated on workstation # [id number]
[2018-09-20] MEDS ORDERED: NS IV 1000 ML 1,000 ML IV SCH ×3 (12:15→20:30)
[2018-09-20] MEDS: PROPOFOL DRIP (ICU) 100 ML IV SCH ×2 (12:23→20:00)
[2018-09-20] MEDS: LEVETIRACETAM INJECTION 500 MG in NS (IVPB) 100 ML IV SCH ×2 (12:25→21:40)
--- NOTE | 2018-09-20 12:28 | Diagnostic Imaging Report ---
INDICATION: Line placement. Frontal chest obtained at 08:35 a.m. and compared to 06:14 a.m. on the same day. ET tube and NG tube are unchanged. There is a new left IJ central catheter with tip overlying the upper SVC. There is no pneumothorax or pleural fluid following line placement. There is no acute pulmonary infiltrate. IMPRESSION: New left IJ central catheter in place as above with no pneumothorax or pleural fluid following device placement. Remaining lines are unchanged. There is no new infiltrate. Dictated by: Dictated on workstation # [id number]
[2018-09-20 12:30] LABS: BILIRUBIN,URINE NEGATIVE (NEGATIVE); CLARITY,URINE CLEAR; COLOR,URINE YELLOW; GLUCOSE, URINE (UA) NEGATIVE (NEGATIVE); KETONES,URINE NEGATIVE (NEGATIVE); LEUKOCYTE ESTERASE ,URINE 1+ (NEGATIVE); NITRITE,URINE NEGATIVE (NEGATIVE); PH,URINE 8 (5-9); PROTEIN,URINE NEGATIVE (NEGATIVE); UROBILINOGEN,URINE NORMAL (NORMAL)
[2018-09-20 12:35] LABS: HEMOGLOBIN 5.7 G/DL (13.3-17.7)
[2018-09-20] MEDS ORDERED: NS IV 500 ML 500 ML IV SCH (12:36)
--- NOTE | 2018-09-20 12:38 | NUR ---
1230 Received critical lab value Lactic Acid 2.58. 1233 Dr. Pond informed of critical lab value. 1234 Received critical lab value: Hgb 5.7, Hct 18. 1235 Dr. Pond informed of critical lab value. Gave verbal order to transfuse 2 units.
[2018-09-20] MEDS: NOREPINEPHRINE 4 MG in NS (IVPB) 250 ML IV SCH ×2 (12:41→18:02)
[2018-09-20] MEDS ORDERED: fentaNYL INJECTION 100 MCG/2 ML AMP INJ ONE (12:53)
[2018-09-20] MEDS ORDERED: MIDAZOLAM 5 MG/5 ML (VERSED) VIAL IJ ONE (12:53)
[2018-09-20] MEDS ORDERED: SUCCINYLCHOLINE INJ 100 MG/5 ML SYR INJ ONE (12:53)
[2018-09-20] MEDS ORDERED: HURRICAINE EXT TUBE (BENZOCAINE) ONE (12:54)
[2018-09-20 13:03] LABS: BACTERIA,URINE NEGATIVE /HPF; SQUAMOUS EPITHELIAL CELL,UR RARE /HPF; WBC,URINE RARE /HPF
[2018-09-20 13:05] LABS: OCCULT BLOOD STOOL IMMUNOASSAY POSITIVE (NEGATIVE)
[2018-09-20] MEDS ORDERED: EPINEPHrine INJECTION 1 MG/ML AMP ONE (13:06)
--- NOTE | 2018-09-20 14:03 | Anesthesia-Procedure Note ---
Procedures/Interventions Procedure Start/Stop/Diagnosis Date of Procedure: Sep 20, 2018 Start Time: 12:55 Referring Physician: Bart Canales Preprocedural Diagnosis: GI Bleed, Resp Failure Brief History Called to ICU for A-Line placement. Pt sedated on vent with vasopressors infusing. ASA 4. Brief hx from RN and chart obtained. Pt sedated on propofol. Chlorhexidine prep to Rt wrist. #20g arrow catheter for A-line placement x1 attempt. Catheter threaded easily. Secured with sterile op site and tape. Strong wave form with report to RN. Restraints per RN. Stop Time: 13:05 Postprocedural Diagnosis: GI Bleed, Resp Failure Arterial Line Arterial Line Catheter: 20G Type: Radial Location: Right Procedure: prepped, draped in sterile fashion, good wave-form was obtained, patient tolerated procedure well, no immediate complications, post procedure area cleaned, post procedure dressing applied SCOTT GONSALES CRNA Sep 20, 2018 14:03
[2018-09-20 15:09] LABS: INR 1.8 (0.8-1.4); PROTHROMBIN TIME PATIENT 21.5 SEC (12.2-14.7)
[2018-09-20 15:22] LABS: ALANINE AMINOTRANSFERASE 27 U/L (0-55); ALKALINE PHOSPHATASE 56 U/L (40-136); BILIRUBIN,TOTAL 0.8 MG/DL (0.1-1.0); BUN/CREATININE RATIO 38; CARBON DIOXIDE 19 MMOL/L (21-32); CHLORIDE 112 MMOL/L (98-107); CREATININE SERUM 0.89 MG/DL (0.60-1.30); GFR ESTIMATED > 60; GLUCOSE 124 MG/DL (70-105); POTASSIUM 4.5 MMOL/L (3.6-5.0); SODIUM 136 MMOL/L (135-145); TOTAL PROTEIN 4.5 GM/DL (6.4-8.2)
[2018-09-20] MEDS: PIPERACILLIN/TAZO 4.5 GM/NS 100 ML IV SCH ×4 (15:50→22:49)
[2018-09-20] MEDS ORDERED: EPINEPHrine INJECTION 1 MG/ML AMP IV ONE (16:00)
--- NOTE | 2018-09-20 16:02 | Diagnostic Imaging Report ---
PROCEDURE: CT chest, abdomen, and pelvis with contrast. TECHNIQUE: Multiple contiguous axial images were obtained through the chest, abdomen, and pelvis after the administration of intravenous contrast. Auto Exposure Controls were utilized during the CT exam to meet ALARA standards for radiation dose reduction. INDICATION: Unresponsive with anemia and GI bleed. COMPARISON: Comparison is made with prior CT abdomen and pelvis study from 07/07/2018. FINDINGS: CT chest: Patient is intubated. ET tube has tip above the kathryn. There is an NG tube passing into the stomach. No axillary, hilar or mediastinal lymphadenopathy is identified. No pericardial or pleural fluid is detected. No pulmonary infiltrate, nodule, or mass is detected. There is minimal dependent atelectasis in the right base. IMPRESSION: Essentially unremarkable CT of the chest. CT abdomen and pelvis: There is a nodular contour to the liver suggestive of cirrhosis. No discrete liver mass is identified. Gallbladder is surgically absent. No biliary ductal dilatation is seen. Pancreas is unremarkable. Spleen does appear to be enlarged but no mass is seen. There are numerous varices in the anterior abdomen. No adrenal mass is detected. Kidneys are unremarkable. Aorta is non-aneurysmal. Bowel loops appear to be nonobstructed. There appears to be some generalized wall thickening involve portions of the hepatic flexure and transverse colon. Remainder of the colon is unremarkable. There is moderate perihepatic ascites. Small amount of perisplenic ascites is noted. There is some free fluid in the pelvis. Degree of free fluid in the abdomen and pelvis is decreased when compared with prior CT from 07/07/2018. Bladder is decompressed by Sutherland catheter. IMPRESSION: 1. Continued findings of cirrhosis and portal hypertension with ascites and splenomegaly as well as numerous varices. Overall volume of ascites in the abdomen and pelvis has decreased when compared with CT study from 07/07/2018. No discrete liver mass is detected. 2. Generalized nonspecific wall thickening of portions of the colon, as described. While this could be owing to incomplete distention, possibility of a nonspecific colitis cannot be entirely excluded. Remainder of the study is unremarkable. Dictated by: Dictated on workstation # [id number]
[2018-09-20] MEDS: VASOPRESSIN INJECTION 20 UNIT in NS (IVPB) 100 ML IV SCH (17:46)
[2018-09-20] MEDS: NOREPINEPHRINE 8 MG in NS (IVPB) 250 ML IV SCH ×2 (20:00→23:30)
[2018-09-20 20:14] LABS: HEMOGLOBIN 6.7 G/DL (13.3-17.7)
--- NOTE | 2018-09-20 21:24 | Consultation (Surgery) ---
History of Present Illness History of Present Illness Patient Consulted On(rika/time) 09/20/18 21:19 Date Seen by Provider: Sep 20, 2018 Time Seen by Provider: 08:00 History of Present Illness Consult requested by Dr. Pond for hematemesis upper gi bleed. patient is a 58 year old male who was transferred from [place], [place]. He was found to be anemic with hgb in 5 range and having increasing hematemesis. Patient with end stage liver disease and esophageal varices. Patient with altered mental status and patient has already been intubated for airway protection. Patient with no family able to be reached at this time. He is receiving prbc and OG tube placed returning some black liquid. Patient unable to provide history. Allergies and Home Medications Allergies Coded Allergies: codeine (Verified Allergy, Unknown, 09/19/18) diphenhydramine (Verified Adverse Reaction, Unknown, restless legs, 09/19/18) Home Medications Furosemide 20 Mg Tablet, 20 MG PO DAILY Prescribed by: JACI KANG on 06/13/18 0658 Furosemide 20 Mg Tablet, 20 MG PO DAILY, (Reported) Furosemide 40 Mg Tablet, 40 MG PO DAILY Prescribed by: MARIAH CORONA on 07/21/182036 Lorazepam 2 Mg Tablet, 2 MG PO Q8H PRN for ANXIETY, (Reported) Magnesium Oxide 400 Mg Tablet, 400 MG PO BID Prescribed by: MARIAH CORONA on 07/21/182036 Pantoprazole Sodium 40 Mg Tablet.dr, 40 MG PO DAILY, (Reported) Potassium Chloride 10 Meq Tablet.er, 10 MEQ PO DAILY, (Reported) Spironolactone 100 Mg Tablet, 100 MG PO DAILY Prescribed by: MARIAH CORONA on 07/21/182036 Sucralfate 1 Gm Tablet, 1 GM PO ACHS, (Reported) Patient Home Medication List Home Medication List Reviewed: Yes Past Grfvele-Modzyj-Ewpwyb Hx Patient Social History Smoking Status: Unknown if Ever Smoked Type Used: Smokeless Tobacco 2nd Hand Smoke Exposure: No Recent Foreign Travel: No Contact w/Someone Who Travel: No Recent Infectious Disease Expo: No Recent Hopitalizations: Yes (JULY 07 FOR FLUID REMOVAL FROM ABDOMEN) Immunizations Up To Date Tetanus Booster (TDap): Unknown PED Vaccines UTD: Yes Date of Influenza Vaccine: Jan 02, 2019 Seasonal Allergies Seasonal Allergies: No Surgeries History of Surgeries: Yes (R knee arthroscopy, GI surgery for ulcers) Surgeries: Gallbladder Respiratory History of Respiratory Disorde: No Cardiovascular History of Cardiac Disorders: No Neurological History of Neurological Disord: Yes Neurological Disorders: Seizure Disorder Genitourinary History of Genitourinary Disor: No Gastrointestinal History of Gastrointestinal Di: Yes Gastrointestinal Disorders: Gastrointestinal Bleed, Esophageal Varices, Ulcer, Cirrhosis Musculoskeletal History of Musculoskeletal Dis: No Endocrine History of Endocrine Disorders: No HEENT History of HEENT Disorders: No Cancer History of Cancer: No Psychosocial History of Psychiatric Problem: Yes Behavioral Health Disorders: Anxiety Integumentary History of Skin or Integumenta: No Blood Transfusions History of Blood Disorders: No Family Medical History Significant Family History: No Pertinent Family Hx Review of Systems-General ROS-Unable to Obtain: patient intubated/sedated Physical Exam-General Problems Physical Exam Vital Signs Vital Signs - First Documented 09/19/18 09/19/18 09/20/18 22:31 23:16 05:14 Temp 97.5 Pulse 89 Resp 24 B/P (MAP) 86/49 (61) Pulse Ox 100 O2 Delivery Room Air FiO2 50 Capillary Refill : Less Than 3 Seconds General Appearance: other (intubated/sedated) HEENT: other (neck supple, inntubated and og tube with black drainage) Neck: supple Respiratory: other (intubated) Cardiovascular: regular rate, rhythm Gastrointestinal: distended (fluid wave) Rectal: deferred Back: normal inspection Extremities: normal inspection, no pedal edema Neurologic/Psychiatric: No alert; other (sedated intubated) Skin: pallor Lymphatic: no adenopathy Data Review Labs Laboratory Tests 09/19/18 22:45: White Blood Count 8.5, Red Blood Count 2.23L, Hemoglobin 5.6*L, Hematocrit 19*L, Mean Corpuscular Volume 86, Mean Corpuscular Hemoglobin 25, Mean Corpuscular Hemoglobin Concent 29L, Red Cell Distribution Width 23.2H, Platelet Count 165, Mean Platelet Volume 10.7H, Prothrombin Time 18.7H, INR Comment 1.5H, Activated Partial Thromboplast Time 33 09/20/18 04:58: Blood Gas Puncture Site RIGHT RADIAL, Blood Gas Patient Temperature 99.4, Arterial Blood pH 7.48H, Arterial Blood Partial Pressure CO2 25L, Arterial Blood Partial Pressure O2 100H, Arterial Blood HCO3 18L, Arterial Blood Total CO2 18.9L, Arterial Blood Oxygen Saturation 99, Arterial Blood Base Excess -4.6L, Carlos Eduardo Test YES-POS, Blood Gas Ventilator Setting NO, Blood Gas Inspired Oxygen 2L 09/20/18 05:00: White Blood Count 15.8H, Red Blood Count 2.82L, Hemoglobin 7.4#L, Hematocrit 23L , Mean Corpuscular Volume 82, Mean Corpuscular Hemoglobin 26, Mean Corpuscular Hemoglobin Concent 32, Red Cell Distribution Width 21.5H, Platelet Count 141, Mean Platelet Volume 10.1, Prothrombin Time 21.2H, INR Comment 1.8H, Activated Partial Thromboplast Time 35, Sodium Level 132L, Potassium Level 4.5, Chloride Level 106, Carbon Dioxide Level 16L, Anion Gap 10, Blood Urea Nitrogen 36H, Creatinine 0.99, Estimat Glomerular Filtration Rate > 60, BUN/Creatinine Ratio 36, Glucose Level 114H, Calcium Level 7.6L, Corrected Calcium 9.0, Phosphorus Level 2.8, Magnesium Level 1.8, Total Bilirubin 1.0, Aspartate Amino Transf (AST/SGOT) 37H, Alanine Aminotransferase (ALT/SGPT) 25, Alkaline Phosphatase 68, Ammonia 223H, Troponin I < 0.028, B-Type Natriuretic Peptide 52.2, Total Protein 5.2L, Albumin 2.3L, Triglycerides Level 46, Cholesterol Level 67, LDL Cholesterol Direct 29, VLDL Cholesterol 9, HDL Cholesterol 28L, Thyroid Stimulating Hormone (TSH) 1.06 09/20/18 05:05: Urine Opiates Screen NEGATIVE, Urine Oxycodone Screen NEGATIVE, Urine Methadone Screen NEGATIVE, Urine Propoxyphene Screen NEGATIVE, Urine Barbiturates Screen NEGATIVE, Ur Tricyclic Antidepressants Screen NEGATIVE, Urine Phencyclidine Screen NEGATIVE, Urine Amphetamines Screen NEGATIVE, Urine Methamphetamines Screen NEGATIVE, Urine Benzodiazepines Screen POSITIVEH, Urine Cocaine Screen NEGATIVE, Urine Cannabinoids Screen NEGATIVE 09/20/18 05:21: Glucometer 115H 09/20/18 06:10: Sodium Level 131L, Potassium Level 4.7, Chloride Level 106, Carbon Dioxide Level 18L, Anion Gap 7, Blood Urea Nitrogen 37H, Creatinine 1.02, Estimat Glomerular Filtration Rate > 60, BUN/Creatinine Ratio 36, Glucose Level 110H, Calcium Level 7.2L, Ammonia 185H, Triglycerides Level 46, Serum Alcohol < 10 09/20/18 06:20: Lactic Acid Level 2.73*H 09/20/18 09:15: Troponin I < 0.028 09/20/18 09:30: Urine Color YELLOW, Urine Clarity CLEAR, Urine pH 8, Urine Specific Mart[place] 1.010L, Urine Protein NEGATIVE, Urine Glucose (UA) NEGATIVE, Urine Ketones NEGATIVE, Urine Nitrite NEGATIVE, Urine Bilirubin NEGATIVE, Urine Urobilinogen NORMAL, Urine Leukocyte Esterase 1+H, Urine RBC (Auto) NEGATIVE, Urine RBC NONE, Urine WBC RARE, Urine Squamous Epithelial Cells RARE, Urine Crystals NONE, Urine Bacteria NEGATIVE, Urine Casts NONE, Urine Mucus NEGATIVE, Urine Culture Indicated NO, Stool Occult Blood Immunoassay POSITIVEH 09/20/18 10:55: Lactic Acid Level 2.35*H 09/20/18 11:50: Gastric Fluid Occult Blood POSITIVEH 09/20/18 12:15: Hemoglobin 5.7#*L, Hematocrit 18*L 09/20/18 14:43: Prothrombin Time 21.5H, INR Comment 1.8H, Sodium Level 136, Potassium Level 4.5, Chloride Level 112H, Carbon Dioxide Level 19L, Anion Gap 5, Blood Urea Nitrogen 34H, Creatinine 0.89, Estimat Glomerular Filtration Rate > 60, BUN/Creatinine Ratio 38, Glucose Level 124H, Calcium Level 7.0L, Corrected Calcium 8.6, Total Bilirubin 0.8, Aspartate Amino Transf (AST/SGOT) 47H, Alanine Aminotransferase (ALT/SGPT) 27, Alkaline Phosphatase 56, Total Protein 4.5L, Albumin 2.0L 09/20/18 19:43: Hemoglobin 6.7*L, Hematocrit 20*L, Lactic Acid Level 2.71*H Assessment/Plan Assessment/Plan Assessment/Plan hematemesis anemia secondary to upper gi bleed alcoholic cirrhosis End stage liver disease altered mental status hx of esophageal varices and gastric ulcers patient critical and placed central line receiving blood currently and no significant output from og at this time protonix and octreotide drips follow hgb and transfuse as needed will likely need egd to if increasing blood loss and may need surgical int ervention patient with multiple comorbidities will follow closely, Clinical Quality Measures DVT/VTE Risk/Contraindication: Risk Factor Score Per Nursin RFS Level Per Nursing on Admit: 1=Low/No VTE PPX GORDO BARTLETT DO Sep 20, 2018 21:24
[2018-09-20] MEDS: VANCOMYCIN 1 GM/NS 250 ML IVPB IV SCH ×2 (21:40)
[2018-09-21] VITALS (19 sets, daily range): BP systolic 75–154; BP diastolic 34–72
--- NOTE | 2018-09-21 00:44 | OPERATIVE REPORT ---
DATE OF SERVICE: 09/20/2018 PREOPERATIVE DIAGNOSES: Hematemesis, upper gastrointestinal bleed. POSTOPERATIVE DIAGNOSES: Hematemesis, upper gastrointestinal bleed. PROCEDURE: Ultrasound-guided left internal jugular vein central line placement. SURGEON: Gordo Barbosa DO ANESTHESIA: Sedation. ESTIMATED BLOOD LOSS: Minimal. COMPLICATIONS: None. INDICATIONS: The patient is a 58-year-old male with hematemesis and suspect upper gastrointestinal bleed. He understands risks and benefits. The patient had some altered mental status and had to be intubated. An attempt of the patient needing central line placement. The patient in need of line in case becomes hypotensive and no family present, so line placed emergently. No family was able to be contacted either. DESCRIPTION OF PROCEDURE: The left internal jugular vein of the left neck was then prepped and draped in the sterile fashion. Timeout was performed. Under ultrasound guidance, the left internal jugular vein was located. Using the ultrasound probe direct visualization of the left internal jugular vein was accessed, dark nonpulsatile blood was withdrawn. The wire was inserted through the needle and the needle was removed. A #11 blade scalpel was used to make a skin incision at the insertion point. A dilator was then advanced over the wire and removed. The triple lumen catheter was then inserted over the wire and the wire was removed. All ports were accessed and flushed without difficulty. The catheter was then secured in the usual fashion. The area was then washed and dried, sterile bandage was applied. Chest x-ray pending. Job ID: [id number] DocumentID: [id number] Dictated Date: 09/20/2018 21:01:25 Wood Heel Back Liner Date: 09/21/2018 00:43:11 Dictated By: GORDO BARBOSA DO
[2018-09-21] MEDS: NS IV 1000 ML 1,000 ML IV SCH ×4 (01:17→10:45)
--- NOTE | 2018-09-21 01:34 | OPERATIVE REPORT ---
DATE OF SERVICE: 09/20/2018 PREOPERATIVE DIAGNOSES: Anemia, upper GI bleed, hematemesis. POSTOPERATIVE DIAGNOSES: Gastritis and ulcer in the cardia of the stomach. PROCEDURE: Esophagogastrojejunoscopy with injection of epinephrine to control bleeding. SURGEON: Gordo Barbosa DO ANESTHESIA: Sedation. ESTIMATED BLOOD LOSS: Minimal. COMPLICATIONS: None. INDICATIONS: The patient is a 58-year-old male, intubated and with suspected upper GI bleed. He has had hematemesis, also a cirrhotic patient. The patient is in need of upper endoscopy for further evaluation. DESCRIPTION OF PROCEDURE: The patient timeout was performed. Scope was inserted in mouth, down the esophagus and into the stomach without difficulty. Significant clot burden the stomach, which then was continued to irrigate and suction. Scope was slowly retracted back to the distal esophagus, which had normal appearance. Esophagus was continued inspected and cleaned and no evidence of any bleeding in esophagus. There was some minimal esophageal varices within the distal portion of the esophagus. Scope was continued to be inserted into the stomach where there was significant clot burden, which was continued to be irrigated and suctioned. Evidence of previous gastric surgery was present with the stomach being having the appearance of a partial gastrectomy with a jejunal limb brought up to the stomach. After the stomach was able to be irrigated and suctioned for adequate visualization was present near the cardia of the stomach, a deep ulceration was found. There were significant clot burden within this area as well. The rest of the stomach is severely friable with some slight generalized ooze of this mucosal surface. Very minimal oozing present at this ulceration that was located. Epinephrine was injected circumferentially around the ulceration, which did achieve hemostasis. In doing so with the stomach being so friable, the scope did cause a little bit of increased ooze. There was one area that had a little bit more brisk bleeding. Therefore, epinephrine was used to inject this area as well to control bleeding. The scope was passed down through the jejunal limb, which no polyps, masses or ulcerations were visualized within this area. The scope was then slowly retracted back. The stomach was reinspected and it had no significant bleeding at the time of ending. Scope was continued to be slowly retracted back into the distal esophagus, which had no bleeding evidence then scope was slowly retracted back until completely removed. The patient tolerated the procedure well. The patient is still in critical condition. The patient may need repeat endoscopy and possible surgical intervention. When family present, this will be discussed with the patient's family. Job ID: [id number] DocumentID: [id number] Dictated Date: 09/20/2018 21:06:43 Gear Machinist Date: 09/21/2018 01:33:44 Dictated By: GORDO BARBOSA DO
[2018-09-21] MEDS: VASOPRESSIN INJECTION 20 UNIT in NS (IVPB) 100 ML IV SCH ×2 (01:36→10:39)
[2018-09-21] MEDS: OCTREOTIDE DRIP 500 MCG/NS 99 ML IV SCH ×4 (02:24→15:25)
[2018-09-21] MEDS: PROPOFOL DRIP (ICU) 100 ML IV SCH (02:25)
[2018-09-21 02:27] LABS: HEMOGLOBIN 8.9 G/DL (13.3-17.7)
[2018-09-21 03:40] LABS: ABG BASE EXCESS -6.9 MMOL/L (-2.5-2.5); ABG OXYGEN SATURATION 99 % (94-100); ABG PCO2 28 MMHG (35-45); ABG PO2 128 MMHG (79-93); ABG TCO2 17.8 MMOL/L (21.0-31.0)
[2018-09-21 03:49] LABS: ALLENS TEST ART LINE; INSPIRED O2 35%; PATIENT TEMP 98.3; VENTILATOR YES
[2018-09-21 03:53] LABS: BASOPHILS # (AUTO) 0.1 10^3/uL (0.0-0.1); BASOPHILS % (AUTO) 1 % (0-10); EOSINOPHILS # (AUTO) 0.1 10^3/uL (0.0-0.3); EOSINOPHILS % (AUTO) 1 % (0-10); HEMATOCRIT 25 % (40-54); HEMOGLOBIN 8.1 G/DL (13.3-17.7); LYMPHOCYTES # (AUTO) 1.3 X 10^3 (1.0-4.0); LYMPHOCYTES % (AUTO) 9 % (12-44); MEAN CORPUSCULAR HEMOGLOBIN 29 PG (25-34); MEAN CORPUSCULAR HGB CONC 33 G/DL (32-36); MEAN CORPUSCULAR VOLUME 87 FL (80-99); MONOCYTES # (AUTO) 1.2 X 10^3 (0.0-1.0); MONOCYTES % (AUTO) 8 % (0-12); NEUTROPHILS # (AUTO) 11.9 X 10^3 (1.8-7.8); NEUTROPHILS % (AUTO) 82 % (42-75); PLATELET COUNT 164 10^3/uL (130-400); WHITE BLOOD COUNT 14.6 10^3/uL (4.3-11.0)
[2018-09-21 04:08] LABS: AMMONIA 135 UMOL/L (11-32); BUN/CREATININE RATIO 41; CALCIUM 6.5 MG/DL (8.5-10.1); CARBON DIOXIDE 16 MMOL/L (21-32); CHLORIDE 115 MMOL/L (98-107); CREATININE SERUM 0.79 MG/DL (0.60-1.30); GFR ESTIMATED > 60; GLUCOSE 159 MG/DL (70-105); MAGNESIUM 1.5 MG/DL (1.8-2.4); POTASSIUM 4.8 MMOL/L (3.6-5.0); SODIUM 135 MMOL/L (135-145)
[2018-09-21] MEDS: POTASSIUM CL 10MEQ/50ML IVPB 50 ML IV SCH (04:38)
[2018-09-21] MEDS: MAGNESIUM 1 GM/100 ML IVPB 100 ML IV SCH ×3 (04:39→05:45)
[2018-09-21] MEDS: KCL 20 MEQ TAB (K-DUR) PO SCH (04:39)
[2018-09-21] MEDS ORDERED: MIDAZOLAM 5 MG/5 ML (VERSED) VIAL ONE (05:44)
[2018-09-21] MEDS ORDERED: fentaNYL INJECTION 100 MCG/2 ML AMP ONE (05:44)
[2018-09-21] MEDS ORDERED: fentaNYL INJECTION 100 MCG/2 ML AMP IVP ONE (06:00)
[2018-09-21] MEDS: PIPERACILLIN/TAZO 4.5 GM/NS 100 ML IV SCH ×4 (06:00→15:26)
[2018-09-21] MEDS ORDERED: MIDAZOLAM 5 MG/5 ML (VERSED) VIAL IVP ONE (06:00)
[2018-09-21] MEDS ORDERED: SODIUM BICARB 8.4% 50 MEQ/50 ML VIAL IV NR (06:15)
--- NOTE | 2018-09-21 06:26 | Pulmonary Procedures ---
Pulmonary Procedures Date of Procedure Date of Service: Sep 21, 2018 Bronch Bronchoscopy with bilateral bronchial washes. Preop DX copious amounts of sputum Postop DX: No endobronchial mass Complications: none After informed consent obtained and formal time out pt was sedated using propofol and Versed. Bronchoscope was advanced through the ET tube. 1% lidocaine was used to anesthetize kathryn, and left/right main stem bronchus. An anatomical tour was undertaken down to the segmental bronchi bilaterally. No endobronchial lesions noted. bilateral endobronchial washes to lavage sputum. Pt tolerated procedure well. No complications noted. Stat CXR is pending. AMINAH ROJAS DO Sep 21, 2018 06:26
[2018-09-21] MEDS ORDERED: PHYTONADIONE (ADULT) INJECTION 10 MG in NS (IVPB) 50 ML IV NR (06:30)
--- NOTE | 2018-09-21 06:31 | Pulmonary Progress Note ---
Subjective Time Seen by a Provider: 06:33 Subjective/Events-last exam Pt is sedated on vent Sepsis Event Evaluation Height, Weight, BMI Height: 5'8.00" Weight: 169lbs. 0.0oz. 76.361789lz; 25.7 BMI Method:Stated Focused Exam Lactate Level 09/20/18 10:55: Lactic Acid Level 2.35*H 09/20/18 19:43: Lactic Acid Level 2.71*H 09/20/18 22:15: Lactic Acid Level 2.40*H Exam Exam Vital Signs Date Time Temp Pulse Resp B/P (MAP) Pulse Ox O2 Delivery O2 Flow Rate FiO2 09/21/18 06:00 94 14 102/56 (71) 100 Mechanical Ventilator 35.00 09/21/18 05:01 94 15 102/63 (76) 100 Mechanical Ventilator 35.00 09/21/18 04:29 86 20 100 35 09/21/18 04:00 85 16 133/64 (87) 100 Mechanical Ventilator 35.00 09/21/18 04:00 100 Mechanical Ventilator 30 09/21/18 04:00 98.3 09/21/18 03:00 84 14 95/72 (80) 100 Mechanical Ventilator 35.00 09/21/18 02:27 87 17 100 35 09/21/18 02:25 65 120/70 09/21/18 02:00 64 16 125/65 (85) 99 Mechanical Ventilator 35.00 09/21/18 01:15 98.0 73 16 120/68 100 Mechanical Ventilator 35 09/21/18 01:00 62 09/21/18 01:00 62 14 122/67 (85) 100 Mechanical Ventilator 35.00 09/21/18 00:00 100 Mechanical Ventilator 30 09/21/18 00:00 66 13 134/70 (91) 100 Mechanical Ventilator 35.00 09/20/18 23:59 98.7 Mechanical Ventilator 35.00 09/20/18 23:21 98.0 71 16 127/64 100 09/20/18 23:05 98.7 72 15 137/69 100 09/20/18 23:00 73 14 121/61 (81) 100 Mechanical Ventilator 35.00 09/20/18 22:54 73 20 100 35 09/20/18 22:00 84 16 134/64 (87) 100 Mechanical Ventilator 35.00 09/20/18 21:17 98.6 82 16 157/44 100 Mechanical Ventilator 50 09/20/18 21:16 98.6 82 16 157/64 100 09/20/18 21:05 99.0 80 12 142/54 100 09/20/18 21:00 81 14 137/55 (82) 100 Mechanical Ventilator 35.00 09/20/18 20:07 84 23 100 35 09/20/18 20:00 97.5 09/20/18 20:00 95/53 09/20/18 20:00 98 14 97/50 (66) 100 Mechanical Ventilator 35.00 09/20/18 20:00 100 Mechanical Ventilator 30 09/20/18 19:00 100 09/20/18 19:00 97 19 132/61 (84) 100 Mechanical Ventilator 35.00 09/20/18 18:20 98.9 93 16 114/73 100 Mechanical Ventilator 35 09/20/18 18:00 112 20 80/59 (66) 100 Mechanical Ventilator 50.00 09/20/18 17:00 99 20 103/51 (68) 100 Mechanical Ventilator 50.00 09/20/18 16:09 98.4 102 25 110/48 95 Mechanical Ventilator 35 09/20/18 16:00 96 19 100 35 09/20/18 16:00 93 19 130/54 (79) 100 Mechanical Ventilator 50.00 09/20/18 16:00 98.5 09/20/18 16:00 100 Mechanical Ventilator 35 09/20/18 15:56 97.8 93 17 129/57 100 Mechanical Ventilator 35 09/20/18 15:00 87 15 94/33 (53) 100 Mechanical Ventilator 50.00 09/20/18 14:00 86 21 114/54 (74) 100 Mechanical Ventilator 50.00 09/20/18 13:51 83 29 100 35 09/20/18 13:28 96.4 76 16 98/57 100 Mechanical Ventilator 35 09/20/18 13:00 81 09/20/18 12:23 77/49 09/20/18 12:00 100 Mechanical Ventilator 35 09/20/18 12:00 98.2 09/20/18 11:02 81 19 100 35 09/20/18 11:00 82 16 91/61 (71) 100 Mechanical Ventilator 50.00 09/20/18 09:00 92 17 92/64 (73) 100 Mechanical Ventilator 50.00 09/20/18 08:52 92 17 100 35 09/20/18 08:00 97 19 104/64 (77) 100 Mechanical Ventilator 50.00 09/20/18 08:00 100 Mechanical Ventilator 50 09/20/18 07:00 100 21 107/62 (77) 100 Mechanical Ventilator 50.00 09/20/18 07:00 102 22 100 50 09/20/18 07:00 102 I & O 09/21/18 07:00 Intake Total 2854 ml Output Total 1660 ml Balance 1194 ml Height & Weight Height: 5'8.00" Weight: 169lbs. 0.0oz. 76.121051kb; 25.7 BMI Method:Stated General Appearance: Chronically ill, Other (sedated on vent) HEENT: Other (OG in place with copious black fluid, pupils sluggish bilaterally) Neck: Supple, Other (bandage in place when central line attempted) Respiratory: Lungs Clear, Respiratory Distress, Other (on vent) Cardiovascular: No Murmur, Normal Peripheral Pulses, Tachycardia Capillary Refill: Less Than 3 Seconds Gastrointestinal: distended (fluid wave) Extremity: Normal Capillary Refill, Swelling (2+ edema to calves) Neurologic/Psychiatric: Other (sedated) Skin: No Ecchymosis; Pallor; No Petechia Lymphatic: No Adenopathy Results Lab Laboratory Tests 09/19/18 22:45 09/20/18 05:00 09/20/18 06:10 09/20/18 12:15 09/20/18 14:43 09/20/18 19:43 09/21/18 02:00 09/21/18 03:30 Assessment/Plan Assessment/Plan Acute respiratory failure -Continue ventilator -D/C sedation and see if pt wakes up -Labs pending severe septic shock -Currently on Vasopressin and Levophed -Give another liter bolus of NS -Continue IVF -Add solucortef Zosyn, Vanco -Lopez cultures Acute GIB with Hematemesis -Pt has received 6 units of PRBC -Will give 2 units of FFP and 5mg of Vit K -Monitor H&H -Currently on protonix gtt - Octreotide gtt -Surgery is consulted hepatic encephalopathy -Start Lactulose -Continue to monitor - Severe endstage alcoholic liver cirrhosis Metabolic lactic acidosis -Give 2 amps of bicarb -IVF and monitor Pt's overall prognosis is very poor. Consult press washer for family education AMINAH ROJAS DO Sep 21, 2018 06:31
[2018-09-21] MEDS ORDERED: EPINEPHrine INJECTION 1 MG/ML AMP ONE (07:08)
[2018-09-21] MEDS ORDERED: LIDOCAINE PF 2% 5 ML (XYLOCAINE) VIAL INJ ONE (07:32)
--- NOTE | 2018-09-21 07:58 | Progress Note-Hospitalist ---
Subjective HPI/CC On Admission Date Seen by Provider: Sep 21, 2018 Time Seen by Provider: 07:43 Pt is a 58yoCF with a PMH of ESLD, esophageal varices, cirrhosis, and alcohol abuse who presented to the ER with CC of vomiting up blood. He was seen in the ER at [facility] earlier yesterday for similar symptoms and he was found to be ane tara at 6.5. Outpatient transfusion was arranged here at [facility] and he was discharged home with strict return precautions. His hematemesis worsened andd he returned to the ER and was found to have a Hgb of 5.6 and was transferred here for ICU care for UGI bleed. He is intubated and unable to provide any history. All history is obtained from the records. Reportedly he was at [facility] recently and discharged on 09/12. Those records are requested. Discussed with RN and Dr Pendleton and patient had an episode of unresponsiveness necessitating intubation to protect airway. Subjective/Events-last exam Pt is intubated and sedated. Unable to provide any ROS. Discussed with RN. Now has bloody BMs as well. Discussed with Dr Barbosa. Plan for bedside scope this AM. Focused Exam Lactate Level 09/20/18 10:55: Lactic Acid Level 2.35*H 09/20/18 19:43: Lactic Acid Level 2.71*H 09/20/18 22:15: Lactic Acid Level 2.40*H Objective Exam Vital Signs Vital Signs Date Time Temp Pulse Resp B/P (MAP) Pulse Ox O2 Delivery O2 Flow Rate FiO2 09/21/18 13:00 121 27 76/55 (62) Mechanical Ventilator 35.00 09/21/18 12:00 100 30 09/21/18 07:15 97.4 Capillary Refill : Less Than 3 Seconds General Appearance: Chronically ill, Other (sedated on vent) HEENT: Other (OG in place with copious black fluid, pupils sluggish bilaterally) Neck: Other (central line in place) Respiratory: Lungs Clear, Respiratory Distress, Other (on vent) Cardiovascular: No Murmur, Normal Peripheral Pulses, Tachycardia Gastrointestinal: Normal Bowel Sounds, No Pulsatile Mass, Distended Genital/Rectal: Other (sexton catheter in place, yellow urine draining) Extremity: Swelling (1+ edema to knees) Neurologic/Psychiatric: Other (sedated) Skin: No Ecchymosis; Pallor; No Petechia Lymphatic: No Adenopathy Results/Procedures Lab Laboratory Tests 09/20/18 14:43 09/20/18 19:43 09/21/18 02:00 09/21/18 03:30 Patient resulted labs reviewed. Imaging: Reviewed Imaging Films, Reviewed Imaging Report Assessment/Plan Assessment and Plan Assess & Plan/Chief Complaint Hypovolemic shock secondary to GI bleed Diagnosis/Problems Diagnosis/Problems (1) Shock Assessment & Plan: hypovolemic due to GI bleed s/p 6 units pRBCs with Hgb drop from 8.9 to 8.1 this AM Plan for scope today Continue Levophed and vasopressin (2) GI bleed Status: Acute Assessment & Plan: known varices, gastritis, and ulcer from July scope Hgb 5.6 on arrival, s/p 6 units as above Continue IVF Octreotide gtt PPI Qualifiers: GI bleed type/associated pathology: gastrointestinal hemorrhage with hematemesis Qualified Codes: K92.0 - Hematemesis (3) Acute respiratory failure Assessment & Plan: Intubated 09/[address] Pendleton Appreciate Pulm recs Propofol for sedation Qualifiers: Respiratory failure complication: unspecified whether with hypoxia or hypercapnia Qualified Codes: J96.00 - Acute respiratory failure, unspecified whether with hypoxia or hypercapnia (4) Altered mental status Assessment & Plan: Intubated for airway protection following unresponsive episode CT head negative Ammonia improved avoid lactulose as active GI bleed Qualifiers: Altered mental status type: coma Coma depth: Gabbi coma 3-8 Coma timing: at hospital admission Qualified Codes: R40.2433 - Gabbi coma scale score 3-8, at hospital admission (5) KYRIE (acute kidney injury) Assessment & Plan: Resolved Trend (6) Cirrhosis, alcoholic Status: Acute Assessment & Plan: Cover for SBP with Zosyn Surgery consulted, appreciate recs Discussed with Dr Dumont who is PCP known end stage disease and had resumed drinking over the weekend Qualifiers: Ascites presence: with ascites Qualified Codes: K70.31 - Alcoholic cirrhosis of liver with ascites (7) Anemia Status: Chronic Assessment & Plan: due to acute blood loss transfused as above iron deficient from 08/30 labs Consider IV when more stable Qualifiers: Anemia type: other cause Other causes of anemia: acute posthemorrhagic Qualified Codes: D62 - Acute posthemorrhagic anemia (8) Elevated INR Status: Chronic Assessment & Plan: autoanticoagulated INR 1.8 Trend (9) Counseling regarding end of life decision making Assessment & Plan: Discussed with Dr Dumont, no DPOA/Advance Directive on file Discussed with son as patient unable to communicate Relayed very poor prognosis and son comfortable with plan for DNR as code blue with be futile Will come to hospital with family and continue discussion regarding goals of care Clinical Quality Measures DVT/VTE Risk/Contraindication: Risk Factor Score Per Nursin RFS Level Per Nursing on Admit: 1=Low/No VTE PPX IRMA BLANCO MD Sep 21, 2018 07:58
--- NOTE | 2018-09-21 08:09 | Physical Therapy Progress Note ---
Therapy Progress Note patient currently sedated and on mechanical ventilator. PT will assess patient when alert and medically stable to actively participate with therapy. DIANE ZULUAGA PT Sep 21, 2018 08:09
--- NOTE | 2018-09-21 08:17 | Diagnostic Imaging Report ---
INDICATION: Upper GI bleed, anemia and intubation. Frontal chest obtained at 3:16 a.m. and compared to 09/20/2018. FINDINGS: Heart is normal in size. Mediastinal silhouette is unremarkable. ET tube and NG tube and left IJ central catheter are unchanged. There is no focal infiltrate or pneumothorax or pleural fluid. IMPRESSION: Life-support lines unchanged compared to yesterday. No acute process in the chest. Dictated by: Dictated on workstation # [id number]
[2018-09-21] MEDS ORDERED: LACTULOSE SYRUP 10GM/15ML (ENULOSE) 30ML UDC PO SCH (09:00)
--- NOTE | 2018-09-21 09:29 | Occ Therapy Progress Note ---
Therapy Progress Note Pt. currently on ventilator and sedation. Will continue to monitor and provided skilled treatment once extubated. [id number] KATHY WU OT Sep 21, 2018 09:29
[2018-09-21] MEDS: NOREPINEPHRINE 8 MG in NS (IVPB) 250 ML IV SCH ×3 (09:40→12:50)
[2018-09-21] MEDS: LEVETIRACETAM INJECTION 500 MG in NS (IVPB) 100 ML IV SCH (10:35)
[2018-09-21] MEDS: VANCOMYCIN 1 GM/NS 250 ML IVPB IV SCH ×2 (10:45)
--- NOTE | 2018-09-21 11:28 | NUR ---
pt goes by "Owen." Pt's son and sister at bedside. More family expected after 1200. Pt's sister said he has struggled with depression and alcoholism, and she does not want to be in pain any more. Pt does not have any spiritual affiliation, per family. Pt's nurse said she would page pastoral care when family arrived and/or they were ready to extubate.
--- NOTE | 2018-09-21 14:23 | NUR ---
PALLIATIVE CARE RN and Dr. Pond in to see patient's family to discuss prognosis and POC to include terminal extubation. Family are all in agreement with [facility] and are spending a final moment with him. They will notify the nurse when they are ready for the procedure. Patient's sister asked if they could use the same "place as we used for Dad" ...looked it up and found the they used [employer] for they fathers final preparation. No other needs at this time.
--- NOTE | 2018-09-21 14:35 | NUR ---
PATIENT EXTUBATED AT THIS TIME PER FAMILY REQUEST, FAMILY PRESENT AT BEDSIDE, PASTORAL CARE PRESENT ET RT PRESENT. RESTRAINTS REMOVED AT THIS TIME. PATIENT SUCTIONED ET O2 APPLIED VIA NASAL CANNULA
--- NOTE | 2018-09-21 14:56 | NUR ---
patient had lack of cardiac activity at this time, verified by this rn et Tray RAYO. TOD [id number], notified dr. herrmann, dr. almaraz et dr. sotomayor of patient expiring.
--- NOTE | 2018-09-21 15:10 | NUR ---
PRESENT AT TIME OF EXTUBATION. FACILITATED [employer] FOR FREE EXPRESSION OF THOUGHTS AND FEELING, STORYTELLING, AND GRIEF.
[2018-09-21] MEDS ORDERED: morphine INJ 4 MG/ML 1 ML (VIAL/SYRINGE) IV PRN (15:15)
[2018-09-21] MEDS ORDERED: LORazepam INJ 2 MG/ML (ATIVAN) VIAL IVP PRN (15:15)
[2018-09-21] MEDS ORDERED: RT-ALBUTEROL/IPRATROPIUM 3 ML (DUONEB) VIAL INH PRN (15:15)
[2018-09-21] MEDS ORDERED: ONDANSETRON 4 MG/2 ML (SDV) Z0FRAN IVP PRN (15:15)
[2018-09-21] MEDS ORDERED: GLYCOPYRROLATE 0.2 MG/ML (ROBINUL) 2 ML VIAL IV PRN (15:15)
[2018-09-21] MEDS ORDERED: ARTIFICAL TEARS 0.4 ML UNIT DOSE (REFRESH PLUS) OU PRN (15:15)
[2018-09-21] MEDS ORDERED: ATROPINE 1% OPHTHALMIC SOLN 2 ML SL PRN (15:15)
[2018-09-21] MEDS ORDERED: SALIVA STIMULANT MOUTH SPRAY (BIOTENE) 1.5 OZ MM PRN (15:15)
[2018-09-21] MEDS ORDERED: PROMETHAZINE INJ 25 MG/ML (PHENERGAN) AMP IVP PRN (15:15)
[2018-09-21] MEDS ORDERED: ACETAMINOPHEN 650 MG SUPP (TYLENOL) PR PRN (15:15)
[2018-09-21] MEDS ORDERED: SCOPOLAMINE 1.5 MG (TRANSDERM-SCOP) PATCH TOP SCH (15:15)
[2018-09-21] MEDS ORDERED: BISACODYL 10 MG SUPP (DULCOLAX) PR PRN (15:15)
--- NOTE | 2018-09-21 15:29 | Discharge Summary-Hospitalist ---
Discharge Summary Date of Admission Sep 19, 2018 at 23:09 Date of Discharge Admission Diagnosis Upper GI Bleed Consults/Procedures Consulations Pulm- Dr Pendleton Surgery- Dr Barbosa Comfort Measures/ End of Life Care: Comfort Measures Pt was admitted due to an upper GI bleed. He underwent multiple endoscopies to locate and treat the bleed but given severity of illness with esophageal varices and alcoholic gastritis he continued to worsen. He was supported with mulitples vasopressors and blood products. Ultimatley his family elected to palliatively extubate patient and allow for comfort measures only. He shortly after life support was withdrawn. Discharge Diagnosis Hypovolemic shock secondary to GI bleed (1) Shock Assessment & Plan: hypovolemic due to GI bleed s/p 6 units pRBCs with Hgb drop from 8.9 to 8.1 this AM Plan for scope today Continue Levophed and vasopressin (2) GI bleed Status: Acute Assessment & Plan: known varices, gastritis, and ulcer from July scope Hgb 5.6 on arrival, s/p 6 units as above Continue IVF Octreotide gtt PPI Qualifiers: Qualified Codes: K92.0 - Hematemesis (3) Acute respiratory failure Assessment & Plan: Intubated 09/[address] Pendleton Appreciate Pulm recs Propofol for sedation Qualifiers: Qualified Codes: J96.00 - Acute respiratory failure, unspecified whether with hypoxia or hypercapnia (4) Altered mental status Assessment & Plan: Intubated for airway protection following unresponsive episode CT head negative Ammonia improved avoid lactulose as active GI bleed Qualifiers: Qualified Codes: R40.2433 - Gabbi coma scale score 3-8, at hospital admission (5) KYRIE (acute kidney injury) Assessment & Plan: Resolved Trend (6) Cirrhosis, alcoholic Status: Acute Assessment & Plan: Cover for SBP with [facility] Surgery consulted, appreciate recs Discussed with Dr Dumont who is PCP known end stage disease and had resumed drinking over the weekend Qualifiers: Qualified Codes: K70.31 - Alcoholic cirrhosis of liver with ascites (7) Anemia Status: Chronic Assessment & Plan: due to acute blood loss transfused as above iron deficient from 08/30 labs Consider IV when more stable Qualifiers: Qualified Codes: D62 - Acute posthemorrhagic anemia (8) Elevated INR Status: Chronic Assessment & Plan: autoanticoagulated INR 1.8 Trend (9) Counseling regarding end of life decision making Assessment & Plan: Discussed with Dr Dumont, no DPOA/Advance Directive on file Discussed with son as patient unable to communicate Relayed very poor prognosis and son comfortable with plan for DNR as code blue with be futile Will come to hospital with family and continue discussion regarding goals of care IRMA BLANCO MD Sep 21, 2018 15:29
--- NOTE | 2018-09-21 16:26 | Progress Note ---
Subjective Date Seen by a Provider: Sep 21, 2018 Time Seen by a Provider: 07:35 Subjective/Events-last exam Patient on 2 pressors requiring blood transfusion and still dropping hgb. NG tube returning small amount of bright red blood and black fluid. Patient found to have severe gastritis yesterday and ulcer near cardia of stomach. No family at bedside this time. Focused Exam Lactate Level 09/20/18 10:55: Lactic Acid Level 2.35*H 09/20/18 19:43: Lactic Acid Level 2.71*H 09/20/18 22:15: Lactic Acid Level 2.40*H Objective Exam Vital Signs Date Time Temp Pulse Resp B/P (MAP) Pulse Ox O2 Delivery O2 Flow Rate FiO2 09/21/18 14:06 118 30 100 30 09/21/18 13:00 121 27 76/55 (62) Mechanical Ventilator 35.00 09/21/18 12:25 122 09/21/18 12:00 121 23 83/58 (66) Mechanical Ventilator 35.00 09/21/18 12:00 100 Mechanical Ventilator 30 09/21/18 11:00 117 23 90/64 (73) Mechanical Ventilator 35.00 09/21/18 10:31 120 22 100 30 09/21/18 10:00 121 20 99/69 (79) Mechanical Ventilator 35.00 09/21/18 09:00 116 19 100/58 (72) Mechanical Ventilator 35.00 09/21/18 08:00 124 18 99/51 (67) 95 Mechanical Ventilator 35.00 09/21/18 07:34 100 Mechanical Ventilator 30 09/21/18 07:15 97.4 116 15 130/66 (87) 100 Mechanical Ventilator 35.00 09/21/18 07:00 117 09/21/18 06:08 23 09/21/18 06:00 94 14 102/56 (71) 100 Mechanical Ventilator 35.00 09/21/18 05:50 100 Mechanical Ventilator 35 09/21/18 05:01 94 15 102/63 (76) 100 Mechanical Ventilator 35.00 09/21/18 04:29 86 20 100 35 09/21/18 04:00 85 16 133/64 (87) 100 Mechanical Ventilator 35.00 09/21/18 04:00 100 Mechanical Ventilator 30 09/21/18 04:00 98.3 09/21/18 03:00 84 14 95/72 (80) 100 Mechanical Ventilator 35.00 09/21/18 02:27 87 17 100 35 09/21/18 02:25 65 120/70 09/21/18 02:00 64 16 125/65 (85) 99 Mechanical Ventilator 35.00 09/21/18 01:15 98.0 73 16 120/68 100 Mechanical Ventilator 35 09/21/18 01:00 62 09/21/18 01:00 62 14 122/67 (85) 100 Mechanical Ventilator 35.00 09/21/18 00:00 100 Mechanical Ventilator 30 09/21/18 00:00 66 13 134/70 (91) 100 Mechanical Ventilator 35.00 09/20/18 23:59 98.7 Mechanical Ventilator 35.00 09/20/18 23:21 98.0 71 16 127/64 100 09/20/18 23:05 98.7 72 15 137/69 100 09/20/18 23:00 73 14 121/61 (81) 100 Mechanical Ventilator 35.00 09/20/18 22:54 73 20 100 35 09/20/18 22:00 84 16 134/64 (87) 100 Mechanical Ventilator 35.00 09/20/18 21:17 98.6 82 16 157/44 100 Mechanical Ventilator 50 09/20/18 21:16 98.6 82 16 157/64 100 09/20/18 21:05 99.0 80 12 142/54 100 09/20/18 21:00 81 14 137/55 (82) 100 Mechanical Ventilator 35.00 09/20/18 20:07 84 23 100 35 09/20/18 20:00 97.5 09/20/18 20:00 95/53 09/20/18 20:00 98 14 97/50 (66) 100 Mechanical Ventilator 35.00 09/20/18 20:00 100 Mechanical Ventilator 30 09/20/18 19:00 100 09/20/18 19:00 97 19 132/61 (84) 100 Mechanical Ventilator 35.00 09/20/18 18:20 98.9 93 16 114/73 100 Mechanical Ventilator 35 09/20/18 18:00 112 20 80/59 (66) 100 Mechanical Ventilator 50.00 09/20/18 17:00 99 20 103/51 (68) 100 Mechanical Ventilator 50.00 I & O 09/21/18 07:00 Intake Total 2854 ml Output Total 2310 ml Balance 544 ml Capillary Refill : Less Than 3 Seconds General Appearance: Chronically ill, Other (sedated on vent) HEENT: Other ( copious black fluid from OG tube) Neck: Other (central line left neck) Respiratory: Lungs Clear, Other (on vent) Cardiovascular: No Murmur, Normal Peripheral Pulses, Tachycardia Gastrointestinal: distended (fluid wave) Extremity: Swelling (1+ edema to knees) Neurologic/Psychiatric: No Alert; Other (sedated) Skin: No Ecchymosis; Pallor; No Petechia Lymphatic: No Adenopathy Results Lab Laboratory Tests 09/20/18 19:43: Hemoglobin 6.7*L, Hematocrit 20*L, Lactic Acid Level 2.71*H 09/20/18 22:15: Lactic Acid Level 2.40*H 09/21/18 02:00: Hemoglobin 8.9#L, Hematocrit 27L 09/21/18 03:30: Hemoglobin 8.1L, Hematocrit 25L, White Blood Count 14.6H, Red Blood Count 2.84L, Mean Corpuscular Volume 87, Mean Corpuscular Hemoglobin 29, Mean Corpuscular Hemoglobin Concent 33, Red Cell Distribution Width 19.0H, Platelet Count 164, Mean Platelet Volume 10.0, Neutrophils (%) (Auto) 82H, Lymphocytes (%) (Auto) 9L , Monocytes (%) (Auto) 8, Eosinophils (%) (Auto) 1, Basophils (%) (Auto) 1, Neutrophils # (Auto) 11.9H, Lymphocytes # (Auto) 1.3, Monocytes # (Auto) 1.2H, Eosinophils # (Auto) 0.1, Basophils # (Auto) 0.1, Blood Gas Puncture Site ART LINE, Blood Gas Patient Temperature 98.3, Arterial Blood pH 7.40, Arterial Blood Partial Pressure CO2 28L, Arterial Blood Partial Pressure O2 128H, Arterial Blood HCO3 17*L, Arterial Blood Total CO2 17.8L, Arterial Blood Oxygen Saturation 99, Arterial Blood Base Excess -6.9L, Carlos Eduardo Test ART LINE, Blood Gas Ventilator Setting YES, Blood Gas Inspired Oxygen 35%, Sodium Level 135, Potassium Level 4.8, Chloride Level 115H, Carbon Dioxide Level 16L, Anion Gap 4L , Blood Urea Nitrogen 32H, Creatinine 0.79, Estimat Glomerular Filtration Rate > 60, BUN/Creatinine Ratio 41, Glucose Level 159H, Calcium Level 6.5L, Magnesium Level 1.5L, Ammonia 135H 09/21/18 15:49: Lab Scanned Report Transfusion Reaction Form Microbiology 09/20/18 Gram Stain - Final, Resulted 09/20/18 Sputum Culture, Resulted Pending Assessment/Plan Assessment/Plan Assessment/Plan hematemesis anemia secondary to upper gi bleed alcoholic cirrhosis End stage liver disease altered mental status hx of esophageal varices and gastric ulcers gastric ulcer,severe gastritis s/p egj with injection of epinephrine patient critical transfusing blood as needed but hgb dropping protonix and octreotide drips will repeat egd now follow hgb and transfuse as needed patient with multiple comorbidities Clinical Quality Measures DVT/VTE Risk/Contraindication: Risk Factor Score Per Nursin RFS Level Per Nursing on Admit: 1=Low/No VTE PPX GORDO BARTLETT DO Sep 21, 2018 16:26
--- NOTE | 2018-09-21 16:44 | NUR ---
at 1458 placed call to [facility] regarding patient passing, pt was candidate for tissue donation. at approx 1530 ice packs placed on patient per request of Sahra WELLS. Received call back at approx 1640 Daughter has agreed for patient to be donor, spoke with Meghan at this time. Patient [facility] referral number :[id number]
--- NOTE | 2018-09-21 18:53 | NUR ---
replaced patient ice packs at this time r/t [facility] donor.
--- NOTE | 2018-09-21 20:30 | NUR ---
ICE BAGS REPLENISHED
--- NOTE | 2018-09-21 21:32 | NUR ---
[facility] HERE TO TAKE THE BODY
--- NOTE | 2018-09-22 02:44 | OPERATIVE REPORT ---
DATE OF SERVICE: 09/21/2018 PREOPERATIVE DIAGNOSIS: Gastrointestinal bleed. POSTOPERATIVE DIAGNOSIS: Gastrointestinal bleed. PROCEDURE PERFORMED: Esophagogastrojejunoscopy. SURGEON: Gordo Barbosa DO. ANESTHESIA: Sedation. ESTIMATED BLOOD LOSS: None. COMPLICATIONS: None. INDICATIONS: The patient is a 58-year-old male, who had bleeding ulcer, I was able to visualize yesterday. He had continued to have drop in hemoglobin, on 2 pressors. The patient continued to decline and felt the patient is likely continuing to bleed. The patient and family understand risks and benefits of procedure and wished to proceed with procedure. Consent was signed in the chart. DESCRIPTION OF PROCEDURE: The patient was intubated. A timeout was performed. Scope was inserted into the mouth, down the esophagus, which a significant blood present within the esophagus which was then suctioned. It continue be suctioned until in the stomach where a mixture of dark blood and clot present. This continued to be irrigated and suctioned. There was such a large clot burden that I was unable to evacuate in the cardia of the stomach where the previous visualized ulcer was present. The scope was continued to be inserted into the jejunum which still had normal appearance. Scope was brought back into the stomach where again lots of irrigation and suction performed, but no progress was being made with evacuating the large clot. Therefore, the scope was then slowly retracted back to the distal esophagus and slowly withdrawn until completely removed. RECOMMENDATIONS: The patient's family will be discussed findings, continue to monitor and see how he progresses. If he continues to lose blood, we can discuss exploration surgically; however, I think this is probably more futile care than beneficial due to all the patient's comorbidities, but we will discuss this with family when they arrive. Job ID: [id number] DocumentID: [id number] Dictated Date: 09/21/2018 16:19:53 Picking Crew Supervisor Date: 09/21/2018 20:41:08 Dictated By: GORDO BARBOSA DO [facility] HOSPITALMartha
[2018-09-22] MEDS ORDERED: TROUGH ORDER-PHARMACY XX NR (08:00)
[2018-09-24] MEDS ORDERED: SCOPOLAMINE PATCH REMOVAL TP SCH (15:14)
--- NOTE | 2018-09-25 17:11 | Physician Query Clarification ---
PQ-Conflicting Diagnosis Admission/Discharge Admission Date: Sep 19, 2018 at 23:09 Discharge Date: Sep 21, 2018 at 21:10 The medical record reflects the following clinical scenario: History/Risk Factors: liver failure, hypotension, cirrhosis Clinical Findings: GI bleed, respiratory failure, liver failure Treatment: Stacy Olmos Question: Do you agree with the impression of the SEPSIS/SEPTIC SHOCK per DR. ROJAS? Please document a response in Progress Note or Discharge Summary. 1. Yes 2. No 3. Other, with explanation of clinical findings 4. Clinically undetermined, no explanation for clinical findings. PHYSICIAN RESPONSE Do you agree w/Consulting Dx?: No Explanation of clincal finding Hypovolemic shock from GI bleed Please remember a lack of response to the above will prompt a phone page by CDI/Coding staff. In responding to this query, please exercise your independent professional judgment. The purpose of this communication is to more accurately reflect the complexity of your patients condition. The fact that a question is asked does not imply that any particular answer is desired or expected. Thank you for your timely response to this clarification. Requestors name: [ ] Phone # [ ] THIS PHYSICIAN QUERY FORM IS A PERMANENT PART OF THE MEDICAL RECORD CALISTA BOLTON Sep 25, 2018 17:11 REGAN LOVERA MD Oct 08, 2018 16:22 IRMA BLANCO MD Oct 11, 2018 10:46
== END 2018-09-21 21:10 | disposition expired | DRG 377 ==
LOC: EDUNIT# 22:24 → ER FS 22:26 → ICU 23:09
PROVIDERS: ADMIT Internal Medicine; ATTEND Internal Medicine
PROC: 0DC68ZZ Extirpation of Matter from Stomach, Via Natural or Artificial Opening Endoscopic (ICD-10-PCS; 2018-09-20)
PROC: 0W3P8ZZ Control Bleeding in Gastrointestinal Tract, Via Natural or Artificial Opening Endoscopic (ICD-10-PCS; 2018-09-20)
PROC: 02HV33Z Insertion of Infusion Device into Superior Vena Cava, Percutaneous Approach (ICD-10-PCS; 2018-09-20)
PROC: 0BH17EZ Insertion of Endotracheal Airway into Trachea, Via Natural or Artificial Opening (ICD-10-PCS; 2018-09-20)
PROC: 5A1945Z Respiratory Ventilation, 24-96 Consecutive Hours (ICD-10-PCS; 2018-09-20)
PROC: 0B978ZZ Drainage of Left Main Bronchus, Via Natural or Artificial Opening Endoscopic (ICD-10-PCS; 2018-09-21)
PROC: 0B938ZX Drainage of Right Main Bronchus, Via Natural or Artificial Opening Endoscopic, Diagnostic (ICD-10-PCS; 2018-09-21)
PROC: 0DC68ZZ Extirpation of Matter from Stomach, Via Natural or Artificial Opening Endoscopic (ICD-10-PCS; principal; 2018-09-21 07:20)
DX: K25.0 Acute gastric ulcer with hemorrhage (principal); J96.00 Acute respiratory failure, unspecified whether with hypoxia or hypercapnia; R57.1 Hypovolemic shock; D62 Acute posthemorrhagic anemia; N17.9 Acute kidney failure, unspecified; E87.2 Acidosis; K70.31 Alcoholic cirrhosis of liver with ascites; Z66 Do not resuscitate; Z51.5 Encounter for palliative care; K70.40 Alcoholic hepatic failure without coma; R40.2433 Glasgow coma scale score 3-8, at hospital admission; R79.1 Abnormal coagulation profile; I85.00 Esophageal varices without bleeding; G40.909 Epilepsy, unspecified, not intractable, without status epilepticus; F41.9 Anxiety disorder, unspecified; Z87.19 Personal history of other diseases of the digestive system
CPT/HCPCS: 36415; 70470; 71045; 71260; 74177; 80048; 80053; 80061; 80306; 80320; 81000; 82140; 82271; 82274; 82805; 82962; 83605; 83735; 83880; 84100; 84443; 84478; 84484; 85014; 85018; 85025; 85027; 85610; 85730; 86850; 86900; 86901; 86920; 87040; 87070; 87077; 87081; 87186; 87205; 93306; 94002; 94003; 94640; 94799; 96374

== ENCOUNTER → 2018-09-19 | Outpatient (CLI) | payer BC ==
[2018-09-19 11:57] LABS: BASOPHILS % (AUTO) 1 % (0-10); EOSINOPHILS # (AUTO) 0.1 10^3/uL (0.0-0.3); EOSINOPHILS % (AUTO) 1 % (0-10); HEMATOCRIT 24 % (40-54); HEMOGLOBIN 7.5 G/DL (13.3-17.7); LYMPHOCYTES # (AUTO) 0.9 X 10^3 (1.0-4.0); LYMPHOCYTES % (AUTO) 14 % (12-44); MEAN CORPUSCULAR HEMOGLOBIN 25 PG (25-34); MEAN CORPUSCULAR HGB CONC 31 G/DL (32-36); MEAN CORPUSCULAR VOLUME 80 FL (80-99); MEAN PLATELET VOLUME 10.2 FL (7.4-10.4); MONOCYTES # (AUTO) 0.9 X 10^3 (0.0-1.0); MONOCYTES % (AUTO) 13 % (0-12); NEUTROPHILS # (AUTO) 4.7 X 10^3 (1.8-7.8); NEUTROPHILS % (AUTO) 71 % (42-75); PLATELET COUNT 120 10^3/uL (130-400); RED CELL DISTRIBUTION WIDTH 22.4 % (10.0-14.5); WHITE BLOOD COUNT 6.6 10^3/uL (4.3-11.0)
[2018-09-19 12:23] LABS: ALANINE AMINOTRANSFERASE 31 U/L (0-55); ALBUMIN 2.8 GM/DL (3.2-4.5); ALKALINE PHOSPHATASE 82 U/L (40-136); AMMONIA 31 UMOL/L (11-32); BILIRUBIN,TOTAL 0.7 MG/DL (0.1-1.0); BUN/CREATININE RATIO 31; CALCIUM 8.1 MG/DL (8.5-10.1); CARBON DIOXIDE 25 MMOL/L (21-32); CHLORIDE 95 MMOL/L (98-107); CREATININE SERUM 0.78 MG/DL (0.60-1.30); GFR ESTIMATED > 60; GLUCOSE 111 MG/DL (70-105); POTASSIUM 5.3 MMOL/L (3.6-5.0); SODIUM 127 MMOL/L (135-145); TOTAL PROTEIN 6.4 GM/DL (6.4-8.2)
== END ==
LOC: LAB 11:38
PROVIDERS: ATTEND Pediatrics
DX: K70.30 Alcoholic cirrhosis of liver without ascites (principal)
CPT/HCPCS: 36415; 80053; 82140; 85025